=== PATIENT | female | born 1960 | race Two or more races ===

== ENCOUNTER 2016-07-23 14:51 | Emergency (ER) | payer MEDICARE ==
[~2016-07-23] VITALS: Ht 157.5 cm; Wt 104.3 kg
[~2016-07-23 14:51] MED LIST: CYCLOBENZAPRINE10 MG ORAL; IBUPROFEN600 MG ORAL; NKM; RANITIDINE HCL150 MG ORAL; TRAMADOL HCL50 MG ORAL
[2016-07-23] MEDS ORDERED: ASPIR 8181 MG ORAL (15:05)
[2016-07-23] MEDS ORDERED: DICLOFENAC SODI75 MG ORAL (15:05)
[2016-07-23] MEDS ORDERED: LOSARTAN POTASS25 MG ORAL (15:05)
[2016-07-23] MEDS ORDERED: Lidocaine 1% MPF 10mg/ml 5ml INJ ONE (15:30)
[2016-07-23] MEDS ORDERED: IBUPROFEN600 MG ORAL (15:48)
[2016-07-23] MEDS ORDERED: CEPHALEXIN500 MG ORAL ×2 (15:49→15:56)
[2016-07-23] MEDS ORDERED: Polysporin Oint 30gm TOPIC ONE (16:00)
[2016-07-23] MEDS ORDERED: Bacitracin Oint UD TOPIC ONE (16:04)
--- NOTE | 2016-07-23 16:13 | Emergency Room Report ---
History of Present Illness General Chief Complaint: General Complaint Source: Patient Present Illness HPI 55 year-old female complains of left great toe pain for the past 2-3 days. states that she has a history of ingrowing toenail in both of her great toes. states the area is getting red, swollen, and tender where the nail enters the left great. the patient states that she has take and that there are no relieving factors. States the pain is worse with walking and and with palpation of the left great toe. Denies having diabetes and states she has full ROM with sensation of her toe in addition to having no other physical complaints. Allergies: Coded Allergies: NO KNOWN ALLERGIES (Unverified Allergy, Unknown, 07/17/15) Patient History Limited by: language barrier Past Medical History: see triage record Now: No Immunizations: UTD Reviewed Nursing Documentation: PMH: Agreed, PSxH: Agreed Nursing Documentation-PMH Hx Hypertension: Yes Review of Systems All Other Systems: negative except mentioned in HPI Physical Exam Vital Signs Date Time Temp Pulse Resp B/P Pulse Ox O2 Delivery O2 Flow Rate FiO2 07/23/16 14:57 99.0 91 16 144/93 96 Room Air Sp02 EP Interpretation: reviewed, normal General Appearance: no apparent distress, alert, GCS 15, non-toxic Head: normocephalic, atraumatic Eyes: bilateral eye PERRL, bilateral eye normal inspection ENT: hearing grossly normal, normal pharynx, no angioedema, normal voice Neck: full range of motion, supple/symm/no masses Respiratory: lungs clear, normal breath sounds, speaking full sentences Cardiovascular #1: regular rate, rhythm, no edema Cardiovascular #2: 2+ dorsalis pedis (R), 2+ dorsalis pedis (L) Musculoskeletal: back normal, gait/station normal, normal range of motion, non- tender, inflammation - over lateral aspect of left great toe with swelling, heat and tenderness and nailbed entering skin., other - Bilateral great toes with onychomycosis and maseration under great toenails. Neurologic: alert, oriented x3, responsive, motor strength/tone normal, sensory intact, normal gait, speech normal Psychiatric: judgement/insight normal, memory normal, mood/affect normal, no suicidal/homicidal ideation Skin: normal color, warm/dry, well hydrated, other - local erythema,swelling and tenderness of lateral aspect of left great toe. Lymphatic: no adenopathy Procedures Additional Procedure Procedure Narrative Under sterile conditions and going over risks and benefits and informed consent attained, cleaned area with betadine and ETOH of left great toe. 6cc of lidocaine 1% without epi was injected with 27g 1.5" needle into base of left great toe. Using a needle substitute bus driver, the great toe nail was clamped down and using a rotating motion removed the toenail from lateral to medial direction. Estimated blood loss was approx 2-4 cc. Hemostasis was achieved with direct pressure and the wound was then covered in bacitracin, telfa and wrapped in coban. The patient was then instructed in post procedural care and advised to f/ u with PCP within the next 3-5 days. Medical Decision Making Diagnostic Impression: Primary Impression: Ingrowing left great toenail Additional Impression: Cellulitis of great toe of left foot ER Course Pt. presents to the ED c/o left great toe pain. Ddx considered but are not limited to gout, trauma, paronychia Vital signs: are WNL, pt. is afebrile H&PE are most consistent with ingrowing toenail with local cellulitis. ORDERS: none required at this time, the diagnosis is clinical ED INTERVENTIONS: Toenail removal DISCHARGE: At this time pt. is stable for d/c to home. Will provide printed patient care instructions, and any necessary prescriptions. Care plan and follow up instructions have been discussed with the patient prior to discharge. Last Vital Signs Date Time Temp Pulse Resp B/P Pulse Ox O2 Delivery O2 Flow Rate FiO2 07/23/16 14:57 99.0 91 16 144/93 96 Room Air Disposition: HOME, SELF-CARE Condition: Improved Scripts Cephalexin* (KEFLEX*) 500 Mg Capsule 500 MG ORAL EVERY 12 HOURS, #14 CAP 0 Refills Prov: SABRY,TAMEEM P.A. 07/23/16 Ibuprofen* (MOTRIN*) 600 Mg Tablet 600 MG ORAL Q6H Y for For Pain, #30 TAB Prov: SABRY,TAMEEM P.A. 07/23/16 Patient Instructions: Fingernail or Toenail Removal, Care After Additional Instructions: Take medication as directed. Patient instructed to take ibuprofen 600mg as needed for pain. Advised patient to keep site of infection elevated above the level of their heart 3 or 4 times a day, for 30 minutes each time to help reduce swelling. Patient is to keep the infected area clean and dry. They can take a shower or bath, but be sure to pat the area dry with a towel afterward. Patient instructed to not put any antibiotic ointments or creams on the area. Patient should come back sooner if their symptoms do not get better within 3 days of starting treatment or if the red area gets bigger, more swollen, or more painful. JUAN GUPTA Jul 23, 2016 16:13
[2016-07-23 16:20] VITALS: BP 183/88
== END 2016-07-23 16:20 | disposition home or self-care (01) ==
LOC: EMR 15:24
DX: L60.0 Ingrowing nail (principal); L03.032 Cellulitis of left toe; I10 Essential (primary) hypertension

== ENCOUNTER 2018-02-19 11:25 | Emergency (ER) | payer MEDICAID, MEDICARE ==
[~2018-02-19] VITALS: Ht 152.4 cm; Wt 108.4 kg
[~2018-02-19 11:25] MED LIST changes: +ASPIR 8181 MG ORAL; +CEPHALEXIN500 MG ORAL; +DICLOFENAC SODI75 MG ORAL; +LOSARTAN POTASS25 MG ORAL
[2018-02-19 11:35] VITALS: BP 95/66
[2018-02-19] MEDS ORDERED: ACETAMINOPHEN-1 EAC1 ORAL (12:23)
[2018-02-19] MEDS ORDERED: IBUPROFEN600 MG ORAL (12:23)
[2018-02-19] MEDS ORDERED: Tylenol #3 tab (300mg/30mg) ORAL ONE (12:30)
[2018-02-19 12:38] VITALS: BP 95/66
--- NOTE | 2018-02-19 12:39 | Diagnostic Imaging Report ---
Indication: Pain Technique: XRAY Knee 3v R Comparison: None Findings: No acute fracture. There is degenerative change of the knee with significant medial femorotibial compartment joint space narrowing with subchondral sclerosis and cystic change. There may be some chondrocalcinosis in the medial compartment as well. There small tricompartmental osteophytes. No significant suprapatellar joint effusion. No radiopaque foreign body identified. IMPRESSION: No acute fracture. Degenerative change of the knee as above, most severe in the medial femorotibial compartment.
--- NOTE | 2018-02-19 14:50 | Emergency Room Report ---
History of Present Illness General Chief Complaint: Pain Source: Patient Present Illness HPI Patient present with complaints of right knee pain patient has long-standing problems with the knee however she feels that over the past 2-3 days the pain has worsened she also felt that there was some more swelling Denies any fevers or chills denies any fall Pain is 10 out of 10 worse with ambulation Denies any back or flank pain Allergies: Coded Allergies: NO KNOWN ALLERGIES (Unverified Allergy, Unknown, 02/19/18) Patient History Past Medical History: see triage record Pertinent Family History: none Last Menstrual Period: 1982 Now: No Reviewed Nursing Documentation: PMH: Agreed; PSxH: Agreed Nursing Documentation-PMH Past Medical History: No History, Except For Hx Hypertension: Yes Review of Systems All Other Systems: negative except mentioned in HPI Physical Exam Vital Signs Date Time Temp Pulse Resp B/P (MAP) Pulse Ox O2 Delivery O2 Flow Rate FiO2 02/19/18 11:29 98.0 121 16 95/66 95 Room Air 98.1 Sp02 EP Interpretation: reviewed, normal General Appearance: well appearing, no apparent distress Head: normocephalic, atraumatic Eyes: bilateral eye PERRL, bilateral eye EOMI ENT: hearing grossly normal, normal pharynx, TMs + canals normal, uvula midline Neck: full range of motion, supple, no meningismus, no bony tend Respiratory: lungs clear, normal breath sounds, no rhonchi, no respiratory distress, no retraction, no accessory muscle use Cardiovascular #1: normal peripheral pulses, regular rate, rhythm, no edema, no gallop, no JVD, no murmur Gastrointestinal: normal bowel sounds, non tender, soft, no mass, no organomegaly, non-distended, no guarding, no hernia, no pulsatile mass, no rebound Genitourinary: no CVA tenderness Musculoskeletal: other - Significant arthritic changes to the right knee, also left knee, mild small effusion is palpable clinically, no obvious erythema Neurologic: oriented x3, responsive, therapist asst III-XII nml as tested, motor strength/ tone normal, sensory intact Psychiatric: mood/affect normal Skin: normal color, no rash, warm/dry, palpation normal Lymphatic: normal inspection, no adenopathy Medical Decision Making Diagnostic Impression: Primary Impression: arthralgia ER Course Patient has significant arthritis clinically on the right knee X-ray imaging was done to rule out any obvious occult fracture this was negative Patient is provided further pain medicine she does have an arthritis specialist that she is seeing she reports that she is only given Ultram and requesting different medicine for the pain Other X-Ray Diagnostic Results Other X-Ray Diagnostic Results : X-Ray ordered: Right knee # of Views/Limited Vs Complete: 3 View EP Interpretation: Yes Interpretation: no dislocation, no soft tissue swelling, no fractures, other - Significant degenerative disease Impression: No acute disease Electronically Signed by: Alejo Ramírez DO Last Vital Signs Date Time Temp Pulse Resp B/P (MAP) Pulse Ox O2 Delivery O2 Flow Rate FiO2 02/19/18 12:26 98.1 02/19/18 11:35 74 16 95/66 95 Room Air Status: improved Disposition: HOME, SELF-CARE Condition: Improved Scripts Acetaminophen With Codeine (T#3) (TYLENOL #3 TAB*) Y Tab 1 TAB ORAL Q8H PRN for For Pain, #10 TAB Prov: Alejo Ramírez DO 02/19/18 Ibuprofen* (MOTRIN*) 600 Mg Tablet 600 MG ORAL Q8H PRN for For Pain, #20 TAB 0 Refills Prov: Alejo Ramírez DO 02/19/18 Referrals: NON PHYSICIAN (PCP) Patient Instructions: Arthritis, [id number], Joint Pain Additional Instructions: Patient is provided with the discharge instructions notified to follow up with primary doctor in the next 2-3 days otherwise return to the er with any worsening symptoms. Please note that this report is being documented using [employer] technology. This can lead to erroneous entry secondary to incorrect interpretation by the dictating instrument. Alejo Ramírez DO Feb 19, 2018 14:50
== END 2018-02-19 12:38 | disposition home or self-care (01) ==
LOC: EMR 12:00
DX: M25.561 Pain in right knee (principal); I10 Essential (primary) hypertension
CPT/HCPCS: 99284

== ENCOUNTER 2018-07-14 11:44 | Inpatient (IN) | payer MEDICAID, MEDICARE ==
[~2018-07-14] VITALS: Ht 157.5 cm; Wt 106.6 kg
[2018-07-14] VITALS (11 sets, daily range): BP systolic 86–139; BP diastolic 54–91
[~2018-07-14 11:44] MED LIST changes: +ACETAMINOPHEN-1 EAC1 ORAL
--- NOTE | 2018-07-14 12:07 | NUR ---
ED Nurse Note: pt came into ed c/o SOB and midsternal chest pain started this morning. Pt states that she's been feeling cold and feeling weak and tired lately and went to doctors last week and was dx gastritis and started taking medication. Pt AA&ox4, gcs=15, divehi speaking, skin warm and dry, pale, resp labored, tachypnea, -n/v/d, started o2 = 4L via NC, will continue to monitor. MD notified regarding o2 and pt's condition. pt reports o2 helps her breathing.
--- NOTE | 2018-07-14 12:25 | Emergency Room Report ---
History of Present Illness General Chief Complaint: Dyspnea/Respdistress Source: Patient, Family Member Present Illness HPI Patient presents with dyspnea and chest pain this woke her up at 3 am. Substernal chest pain. Started suddenly when she was sitting watching TV. She was seen a week ago for possible gastritis. She also has arthritis in her knees that she takes diclofenac. Recently she's had more edema in her lower legs and she denies any calf pain at this time. On Sunday, she felt some shortness of breath, but did not have the chest pain or palpitations. Pain rated 8/10 chest, pressure and aching, substernal. The patient denies any fevers chills cough nausea vomiting diarrhea dysuria. She's never had this type of chest pain before. She is treated for hypertension and high cholesterol. She does not smoke and there is no family history of clots or heart attacks. Denies prior history of CHF or fluid in lungs. In the past she has not had significant edema. Denies diabetes. Osteoarthritis of knees. States edema related to this. Allergies: Coded Allergies: NO KNOWN ALLERGIES (Unverified Allergy, Unknown, 02/19/18) Patient History Past Medical History: see triage record Social History: Denies: smoking Social History Narrative with daughter Last Menstrual Period: none Now: No : 5 Para: 5 Reviewed Nursing Documentation: PMH: Agreed; PSxH: Agreed Nursing Documentation-PMH Hx Hypertension: Yes Review of Systems All Other Systems: negative except mentioned in HPI Physical Exam Vital Signs Date Time Temp Pulse Resp B/P (MAP) Pulse Ox O2 Delivery O2 Flow Rate FiO2 07/14/18 12:01 99.0 140 15 139/80 95 Room Air Sp02 EP Interpretation: reviewed, abnormal - interpreted as low by me General Appearance: GCS 15, mild distress, obese Head: normocephalic Eyes: bilateral eye normal inspection, bilateral eye PERRL ENT: moist mucus membranes Neck: supple Respiratory: decreased breath sounds Cardiovascular #1: no murmur, tachycardia, edema - 2 + pitting bilat Cardiovascular #2: 2+ radial (R) Gastrointestinal: normal inspection, normal bowel sounds, non tender, no mass, non-distended, overweight Musculoskeletal: back normal, normal range of motion, no calf tenderness, Dm 's Sign negative Neurologic: alert, oriented x3, grossly normal Psychiatric: mood/affect normal Skin: normal inspection, warm/dry Procedures Critical Care Time Critical Care Time Total Critical Care Time: 60 min bedside evaluation and treatment excludes procedures (EKG). Reason for critical care: atrial flutter, possible PE, hypoxia, CHF Possible complications: hypotension, hypertension, IA, shock, arrhythmias, metabolic acidosis, end organ damage, respiratory failure, CVA. Interventions: aspirin, amiodarone, diltiazem, CTA chest, lasix, consultation with caustic plant worker Course: Patient with chest pain and hypoxia. Immediate evaluation for AMI and PE. Aspirin given. Amiodarone boluses with reassessments. CTA neg for PE. Lasix given. Discussion with caustic plant worker with choice of diltiazem. Lovenox given Improved with treatment. Admit ICU. Consultations: nursing staff, family, admitting MD, caustic plant worker Performed by: Dr. Diaz Tolerated well condition = serious Medical Decision Making Diagnostic Impression: Primary Impression: Atrial flutter Qualified Codes: I48.92 - Unspecified atrial flutter Additional Impression: CHF (congestive heart failure) Qualified Codes: I50.9 - Heart failure, unspecified ER Course Patient presents with chest pain and hypoxia. DDX: AMI, ACS, CHF, arrhythmia amongst others. No indications of infectious etiology. Though she has had dyspnea for several days, the chest pain and palpitations began at 3 am. Evaluation with EKG, CXR, CTA and labs. She will be treated with aspirin, oxygen and placed on cardiac rehabilitation program director. Suspicion is high for pulmonary embolus. Consideration for rate and rhythm control. Beta blockers relatively contraindicated with apparent CHF. EKG with possible a flutter. CXR CHF, inc cor. No ischemia - consider cardioversion, but will attempt rate and rhythm control medically. Also concern for possible PE. As chest symptoms less than 24 hours Amiodarone given. HR better, but still tachycardic. Also improved pain. Initial troponin neg. BNP elevated. Min elevation WBC. Going to CT. Still tachy. Repeat amiodarone. EKG #2 consider A flutter still. HR 127, ST vs A flutter. Pulm disease. CT excludes PE. Focus on rate control/rhythm control. Lasix given. Echols placed. Discussed with Dr. Johnson and Dr. Gonzalez who requests diltiazem drip and admit to ICU. Starting lovenox. BP slightly low on diltiazem (98). Reduce rate of drip. HR not changed on diltiazem. Patient improved but still tachycardic. Admit ICU. Laboratory Tests Test 07/14/18 12:35 07/14/18 13:10 White Blood Count 10.9 K/UL (4.8-10.8) H Red Blood Count 4.93 M/UL (4.20-5.40) Hemoglobin 12.2 G/DL (12.0-16.0) Hematocrit 39.4 % (37.0-47.0) Mean Corpuscular Volume 80 FL (80-99) Mean Corpuscular Hemoglobin 24.7 PG (27.0-31.0) L Mean Corpuscular Hemoglobin Concent 30.9 G/DL (32.0-36.0) L Red Cell Distribution Width 15.1 % (11.6-14.8) H Platelet Count 292 K/UL (150-450) Mean Platelet Volume 8.0 FL (6.5-10.1) Neutrophils (%) (Auto) 73.3 % (45.0-75.0) Lymphocytes (%) (Auto) 10.2 % (20.0-45.0) L Monocytes (%) (Auto) 13.0 % (1.0-10.0) H Eosinophils (%) (Auto) 1.6 % (0.0-3.0) Basophils (%) (Auto) 2.0 % (0.0-2.0) Sodium Level 144 MMOL/L (136-145) Potassium Level 3.9 MMOL/L (3.5-5.1) Chloride Level 109 MMOL/L (98-107) H Carbon Dioxide Level 23 MMOL/L (21-32) Anion Gap 12 mmol/L (5-15) Blood Urea Nitrogen 14 mg/dL (7-18) Creatinine 0.7 MG/DL (0.55-1.30) Estimate Glomerular Filtration Rate > 60 mL/min (>60) Glucose Level 111 MG/DL (74-106) H Calcium Level 8.9 MG/DL (8.5-10.1) Total Bilirubin 0.5 MG/DL (0.2-1.0) Aspartate Amino Transferase (AST) 15 U/L (15-37) Alanine Aminotransferase (ALT) 26 U/L (12-78) Alkaline Phosphatase 117 U/L (46-116) H Total Creatine Kinase 52 U/L (26-308) Troponin I 0.007 ng/mL (0.000-0.056) Pro-B-Type Natriuretic Peptide 1613 pg/mL (0-125) H Total Protein 6.9 G/DL (6.4-8.2) Albumin 3.3 G/DL (3.4-5.0) L Globulin 3.6 g/dL Albumin/Globulin Ratio 0.9 (1.0-2.7) L Prothrombin Time 11.9 SEC (9.30-11.50) H Prothrombin Time INR 1.1 (0.9-1.1) PTT 31 SEC (23-33) EKG Diagnostic Results Rate: tachycardiac - 140 Rhythm: other - possible A flutter ST Segments: no acute changes Rhythm Strip Diag. Results EP Interpretation: yes Rhythm: no PVC's, no ectopy, other - ST vs A flutter Chest X-Ray Diagnostic Results Chest X-Ray Diagnostic Results : Chest X-Ray Ordered: Yes # of Views/Limited/Complete: 1 View Indication: Other EP Interpretation: Yes Interpretation: other - effusions, infiltrate, cardiomegally Impression: Other Electronically Signed by: Electronically signed by Yo Diaz MD CT/MRI/US Diagnostic Results CT/MRI/US Diagnostic Results : Imaging Test Ordered: CTA chest Impression No pulmonary embolus. Small moderate left and large right pleural effusions. Bilateral ground glass opacities that may be some edema patchy consolidation and consolidative atelectasis. Cardiomegaly Last Vital Signs Date Time Temp Pulse Resp B/P (MAP) Pulse Ox O2 Delivery O2 Flow Rate FiO2 07/14/18 16:45 97.9 131 18 108/78 98 Nasal Cannula 4.0 Status: improved Disposition: ADMITTED INPATIENT Condition: Serious Yo Diaz MD Jul 14, 2018 12:25
[2018-07-14] MEDS ORDERED: Isovue-370 150ml vial INJ PRN (12:30)
[2018-07-14] MEDS ORDERED: Morphine Sulfate 2mg/ml Inj IVP ONE (12:30)
[2018-07-14 13:13] LABS: EOSINOPHILS % (AUTO) 1.6 % (0.0-3.0); HEMATOCRIT 39.4 % (37.0-47.0); HEMOGLOBIN 12.2 G/DL (12.0-16.0); LYMPHOCYTES % (AUTO) 10.2 % (20.0-45.0); MEAN CORPUSCULAR VOLUME 80 FL (80-99); NEUTROPHILS % (AUTO) 73.3 % (45.0-75.0); PLATELET COUNT 292 K/UL (150-450); RED BLOOD COUNT 4.93 M/UL (4.20-5.40); RED CELL DISTRIBUTION WIDTH 15.1 % (11.6-14.8); WHITE BLOOD COUNT 10.9 K/UL (4.8-10.8)
[2018-07-14 13:24] LABS: ANION GAP 12 mmol/L (5-15); BLOOD UREA NITROGEN 14 mg/dL (7-18); CALCIUM 8.9 MG/DL (8.5-10.1); CARBON DIOXIDE 23 MMOL/L (21-32); CHLORIDE 109 MMOL/L (98-107); CREATININE 0.7 MG/DL (0.55-1.30); POTASSIUM 3.9 MMOL/L (3.5-5.1); SODIUM 144 MMOL/L (136-145)
[2018-07-14 13:35] LABS: ALANINE AMINOTRANSFERASE 26 U/L (12-78); ALBUMIN 3.3 G/DL (3.4-5.0); ALBUMIN/GLOBULIN RATIO 0.9 (1.0-2.7); ALKALINE PHOSPHATASE 117 U/L (46-116); ASPARTATE AMINO TRANSFERASE 15 U/L (15-37); BILIRUBIN,TOTAL 0.5 MG/DL (0.2-1.0); CREATINE KINASE 52 U/L (26-308)
--- NOTE | 2018-07-14 13:39 | NUR ---
ED Nurse Note: Pt is going down to CT.
[2018-07-14 13:46] LABS: INR 1.1 (0.9-1.1)
--- NOTE | 2018-07-14 13:58 | NUR ---
ED Nurse Note: Pt came back from CT
[2018-07-14] MEDS ORDERED: dilTIAZem HCl 25mg/5ml Inj IVP ONE (15:45)
[2018-07-14] MEDS ORDERED: Enoxaparin 100mg Inj SUBQ ONE (15:45)
--- NOTE | 2018-07-14 16:01 | NUR ---
Note woodyone in EDM - 07/14/18 at 1603 by ASUNCION ED Nurse Note: As per ERMD, start diltiazem drip dose rate at 2.5mg. Starting BP 120/84 HR 129. Will continue to monitor. Will recheck in 15mins.
--- NOTE | 2018-07-14 16:03 | NUR ---
ED Nurse Note: ED Nurse Note: As per ERMD, start diltiazem drip dose rate at 2.5ml/hr. Starting BP 120/84 HR 129. Will continue to monitor. Will recheck in 15mins.
--- NOTE | 2018-07-14 16:17 | NUR ---
ED Nurse Note: Tried to give report. RN unavailable.
--- NOTE | 2018-07-14 16:30 | NUR ---
ED Nurse Note: As per ERMD, decrease diltiazem drip dose to 2ml/hr. BP 108/78 HR 131. Will continue to monitor.
--- NOTE | 2018-07-14 16:45 | NUR ---
ED Nurse Note: BP 119/78 HR 121
--- NOTE | 2018-07-14 17:15 | NUR ---
ED Nurse Note: Tried giving report to RN. RN unavailable.
--- NOTE | 2018-07-14 17:31 | NUR ---
ED Nurse Note: Gave telephone report to SEB Mason. RN was notified to bring her up in 15mins due to bed not being ready.
--- NOTE | 2018-07-14 18:19 | NUR ---
ED Nurse Note: Transferred pt to new unit. No acute distress noted.
--- NOTE | 2018-07-14 19:30 | NUR ---
NURSE NOTES: Admitted into [facility]G this 57 yo female pt with c/o chest pain and rapid afib. AAOx4;Pt iin no acute distress, currently denies pain, denies SOB. On 2l via NC, saturating 98-99%. chest sounds clear. Afib/Aflutter on the monitor, rate 106-114. BP stable, afebrile. Pt has PIV x2 all patent; Cardizem gtt infusing at 2mg/h. FC in place, draining clear light jm urine. Son at the bedside. Plan of care explained and will continue to monitor HR/rhythm
--- NOTE | 2018-07-14 20:00 | NUR ---
NURSE NOTES: Orders obtained from PMD, Dr Gardner; Also called Dr Gonzalez for additional orders
--- NOTE | 2018-07-14 20:11 | Consultation ---
Consult Note Assessment/Plan #[id number] afib/flutter with RVR CHF HTN. HLD obesity CarolAraceli DO Jul 14, 2018 20:11
--- NOTE | 2018-07-14 22:00 | NUR ---
NURSE NOTES: Awake, watches TV; denies any chest pains; SOB. Still on Afib; Cardizem gtt at 10mg/h.
--- NOTE | 2018-07-14 22:30 | Consultation ---
DATE OF CONSULTATION: 07/14/2018 PULMONARY AND CRITICAL CARE CONSULT CONSULTING PHYSICIAN: Araceli Medina M.D. REASON FOR CONSULTATION: Shortness of breath, atrial fibrillation and atrial flutter with RVR. HISTORY OF PRESENT ILLNESS: An elderly female who woke up at 3 a.m. with substernal chest pain. Denies any nausea, vomiting, or diarrhea. Has never had any history of atrial fibrillation or atrial flutter. No history of AL. She does smoke tobacco and has had some lower extremity edema and that has been increasing. She did see her primary physician who was concerned about CHF. She was brought into the emergency room, found to be in atrial fibrillation. She has been started on diltiazem drip. She has no other symptoms or concerns. In the emergency room, the patient was started on amiodarone without improvement of her rate control and subsequently was started on diltiazem as well as Lovenox for anticoagulation. PAST MEDICAL HISTORY: Includes COPD, hypertension, hypercholesterolemia, and obesity. SOCIAL HISTORY: Positive for tobacco about a pack a day. No alcohol or drugs. FAMILY HISTORY: Noncontributory. MEDICATIONS: Pre-hospital medications are reviewed, reconciled, and documented in electronic record. PAST SURGICAL HISTORY: Otherwise negative. ALLERGIES: She has no allergies. PHYSICAL EXAMINATION: GENERAL: At the time of my exam, she is alert. She is oriented. She is in no acute respiratory distress. She is afebrile. VITAL SIGNS: Pulse of 133, respirations 24, and blood pressure 119/84. HEENT: She is normocephalic and atraumatic. Oropharynx is moist. Nasal mucosa is moist. NECK: Supple without lymphadenopathy. LUNGS: Bilateral crackles. No wheezes present. HEART: Irregularly irregular with an audible murmur. ABDOMEN: Soft, obese, and nontender. Positive bowel sounds. EXTREMITIES: Positive edema. No focal neurological deficits. LABORATORY AND IMAGING DATA: Her white count 10.9, hemoglobin 12.2, and platelets are 292,000. Her sodium is 144, potassium 3.9, chloride 109, bicarbonate is 23, BUN is 14, creatinine 0.7, and glucose is 111. Her troponin 0.007. Her NPA is 1613. Chest x-ray report is not available. Per the ER record, CT scan was performed, excluding a pulmonary embolism. ASSESSMENT: Atrial fibrillation and atrial flutter with rapid ventricular rate, hypertension, hyperlipidemia, obesity, and possible congestive heart failure. PLAN: For the patient, she is in the intensive care unit for rate control of her arrhythmia. Lovenox for anticoagulation. DVT prophylaxis. 2D echo. Trend her troponins. Aspiration precautions. Home meds. Glycemic control as needed and wound care. We will continue to follow p.r.n. blood gases and chest x-ray as needed. O2 to maintain sats greater than 90%. Greater than 35 minutes of critical care time spent with the patient discussing the case with the patient's family, plan today discussed with consultants, monitoring for bleeding and hemodynamic stability. Araceli Medina D.O. DR: FREDDIE JOB#: [id number] CC:
[2018-07-15] VITALS (37 sets, daily range): BP systolic 93–142; BP diastolic 46–100
--- NOTE | 2018-07-15 | NUR ---
NURSE NOTES: Sleeps on and off; afebrile, denies chest pains; Still on afib/flutter rate 100. BP stable.
--- NOTE | 2018-07-15 02:15 | History and Physical Report ---
DATE OF ADMISSION: 07/14/2018 HISTORY OF PRESENT ILLNESS: The patient comes in with chest pain and shortness of breath for three days and abdominal pain for one week. The patient is morbidly obese, recently went to the doctor, given diagnosis of severe gastritis. The patient is being admitted for atrial fibrillation with RVR as well as bilateral effusion, right greater than left and cardiomegaly and elevated BNP. PAST MEDICAL HISTORY: GERD and obesity. PAST SURGICAL HISTORY: Hysterectomy. MEDICATIONS: in the chart. ALLERGIES: None. SOCIAL HISTORY: Denies history of smoking. No history of alcohol or illicit drugs. REVIEW OF SYSTEMS: HEENT: Denies headaches. RESPIRATORY: Reports shortness of breath. Denies cough for three days. CARDIOVASCULAR: Denies orthopnea. Does have chest pain for three days and abdominal pain for one week. GASTROINTESTINAL: No constipation. No abdominal pain or vomiting. No diarrhea. EXTREMITIES: Denies pain in lower extremities. Also has severe gastritis and heartburn. CENTRAL NERVOUS SYSTEM: No change in vision or speech pattern. PHYSICAL EXAMINATION: VITAL SIGNS: Temperature heart rate was 150 initially, and blood pressure 130/70. HEENT: PERRLA. NECK: Supple. No lymphadenopathy. CHEST: Clear bibasilar rales. CARDIOVASCULAR: Irregularly irregular and tachycardic. GASTROINTESTINAL: Soft. Mild epigastric tenderness. The patient is obese. Abdomen is soft. EXTREMITIES: 1+ edema. Reflexes on both sides. Moves all four extremities. LABORATORY DATA: Only significant for elevated BNP. ASSESSMENT AND PLAN: Atrial fibrillation with RVR; poor effusion, right greater than left; cardiomegaly; elevated BNP; chest pain; and pleural effusion. Consult Dr. Ronquillo, Dr. Brito, Dr. Boo for the diagnosis above-mentioned issues. Alejo Johnson M.D. DR: COLEMAN JOB#: [id number] CC:
--- NOTE | 2018-07-15 03:00 | NUR ---
NURSE NOTES: Pt sleeping. Converted to NSR. BP stable. Cardizem gtt continues at 10mg/h. IV site intact
--- NOTE | 2018-07-15 04:00 | NUR ---
NURSE NOTES: Pt back to aflutter 3:1 conduction. Denies chest pains; denies SOB. AM care done. BP stable; afebrile
[2018-07-15 06:25] LABS: BASOPHILS % (AUTO) 1.5 % (0.0-2.0); EOSINOPHILS % (AUTO) 1.6 % (0.0-3.0); HEMATOCRIT 35.7 % (37.0-47.0); HEMOGLOBIN 11.1 G/DL (12.0-16.0); LYMPHOCYTES % (AUTO) 15.4 % (20.0-45.0); MEAN CORPUSCULAR VOLUME 81 FL (80-99); MONOCYTES % (AUTO) 11.6 % (1.0-10.0); NEUTROPHILS % (AUTO) 69.9 % (45.0-75.0); PLATELET COUNT 260 K/UL (150-450); RED BLOOD COUNT 4.42 M/UL (4.20-5.40); RED CELL DISTRIBUTION WIDTH 15.7 % (11.6-14.8); WHITE BLOOD COUNT 12.2 K/UL (4.8-10.8)
[2018-07-15 07:06] LABS: ANION GAP 9 mmol/L (5-15); BLOOD UREA NITROGEN 15 mg/dL (7-18); CALCIUM 8.9 MG/DL (8.5-10.1); CARBON DIOXIDE 26 MMOL/L (21-32); CHLORIDE 109 MMOL/L (98-107); CREATININE 0.9 MG/DL (0.55-1.30); POTASSIUM 3.8 MMOL/L (3.5-5.1); SODIUM 144 MMOL/L (136-145)
--- NOTE | 2018-07-15 07:24 | NUR ---
HAND-OFF: Report given to Irene Merritt RN.
--- NOTE | 2018-07-15 07:25 | NUR ---
NURSE NOTES: Received patient from [facility]. Patient denies pain or discomfort at this time. Patient resting in bed at this time. Patient blood pressure stable at this time at 136/96. Patient HR showing atrial flutter on the monitor at 88bpm. Patient saturation is 96% at this time on 2L NC at this time. Patient on cardiac diet at this time. Patient has a ackerman for urine retention that was inserted at 07/14. Ackerman draining, asymptomatic and patent at this time. Patient's urine is dark jm colored at this time. Patient has a left hand 20G PIV that is patent and running cardizem drip at 8mg/hr at this time. Drip to be titrated to keep HR below 100 at this time. Will titrate as needed. Patient has an order for SCD at this time but patient has bilateral pitting edema of the lower extremities at this time. Patient has an order for nany duplex to be completed today. Patient also has an order for 2D echo this morning. Will follow up. Patient bed in low position with bed alarm on and call light in reach at this time.
--- NOTE | 2018-07-15 07:50 | NUR ---
NURSE NOTES: Left message for Dr Johnson regarding elevated WBC count this morning of 12.2. Awaiting call back at this time.
--- NOTE | 2018-07-15 08:05 | NUR ---
NURSE NOTES: Dr Johnson called back and ordered ID consult Dr Raegan Martell. Left message for Dr Martell at this time regarding consult and WBC count. Addendum: 07/15/18 at 0814 by Irene Merritt RN Unable to leave message at this time. Lab value not critical. Will inform Dr Martell when he makes rounds this morning.
--- NOTE | 2018-07-15 08:43 | Diagnostic Imaging Report ---
Indication: Chest pain Technique: One view of the chest Comparison: none Findings: Body habitus limits evaluation. The heart is enlarged. There is mild interstitial congestion. There may be a small pleural effusion on the right Impression: Cardiomegaly with mild interstitial congestion Possible small right pleural effusion
--- NOTE | 2018-07-15 09:26 | Cardiac Electrophysiology PN ---
Subjective Subjective [id number] Objective Last 24 Hour Vital Signs Date Time Temp Pulse Resp B/P (MAP) Pulse Ox O2 Delivery O2 Flow Rate FiO2 07/15/18 08:00 Nasal Cannula 2.0 07/15/18 07:03 88 25 125/63 (83) 96 07/15/18 06:00 83 26 140/69 (92) 97 07/15/18 05:30 88 25 126/79 (95) 98 07/15/18 05:00 90 22 138/79 (98) 97 07/15/18 04:30 88 24 130/75 (93) 97 07/15/18 04:00 98.0 88 23 118/68 (85) 97 07/15/18 04:00 Nasal Cannula 2.0 07/15/18 04:00 88 07/15/18 03:30 88 25 108/73 (85) 95 07/15/18 03:00 88 25 124/68 (86) 98 07/15/18 02:30 88 25 124/68 (86) 97 07/15/18 02:00 90 25 120/71 (87) 97 07/15/18 01:30 90 25 106/83 (91) 97 07/15/18 01:00 97 23 109/70 (83) 97 07/15/18 00:30 96 26 122/71 (88) 97 07/15/18 00:00 98.7 101 24 109/66 (80) 99 07/15/18 00:00 Nasal Cannula 2.0 07/14/18 23:30 100 24 114/91 (99) 96 07/14/18 23:00 103 28 86/64 (71) 96 07/14/18 22:30 94 31 93/66 (75) 96 07/14/18 22:00 102 23 103/54 (70) 98 07/14/18 21:57 100 105/70 07/14/18 21:30 102 27 105/70 (82) 97 07/14/18 21:00 133 26 106/75 (85) 99 07/14/18 20:30 102 22 110/58 (75) 98 07/14/18 20:00 Room Air 07/14/18 20:00 106 27 113/84 (94) 99 07/14/18 20:00 106 07/14/18 19:00 97.8 109 26 112/76 (88) 98 07/14/18 18:18 98.0 133 24 119/84 98 Nasal Cannula 4.0 07/14/18 16:45 97.9 131 18 108/78 98 Nasal Cannula 4.0 07/14/18 15:55 128 121/74 07/14/18 15:52 128 121/74 07/14/18 12:05 99.0 140 28 139/80 94 Room Air 07/14/18 12:05 140 28 Room Air 07/14/18 12:01 99.0 140 15 139/80 95 Room Air Intake and Output 07/14/18 07/15/18 18:59 06:59 Intake Total 710 ml Output Total 350 ml 1580 ml Balance -350 ml -870 ml Intake Oral 600 ml IV Total 110 ml Output Urine Total 350 ml 1580 ml Laboratory Tests Test 07/14/18 12:35 07/14/18 13:10 07/15/18 05:20 White Blood Count 10.9 K/UL (4.8-10.8) H 12.2 K/UL (4.8-10.8) H Red Blood Count 4.93 M/UL (4.20-5.40) 4.42 M/UL (4.20-5.40) Hemoglobin 12.2 G/DL (12.0-16.0) 11.1 G/DL (12.0-16.0) L Hematocrit 39.4 % (37.0-47.0) 35.7 % (37.0-47.0) L Mean Corpuscular Volume 80 FL (80-99) 81 FL (80-99) Mean Corpuscular Hemoglobin 24.7 PG (27.0-31.0) L 25.0 PG (27.0-31.0) L Mean Corpuscular Hemoglobin Concent 30.9 G/DL (32.0-36.0) L 31.0 G/DL (32.0-36.0) L Red Cell Distribution Width 15.1 % (11.6-14.8) H 15.7 % (11.6-14.8) H Platelet Count 292 K/UL (150-450) 260 K/UL (150-450) Mean Platelet Volume 8.0 FL (6.5-10.1) 7.6 FL (6.5-10.1) Neutrophils (%) (Auto) 73.3 % (45.0-75.0) 69.9 % (45.0-75.0) Lymphocytes (%) (Auto) 10.2 % (20.0-45.0) L 15.4 % (20.0-45.0) L Monocytes (%) (Auto) 13.0 % (1.0-10.0) H 11.6 % (1.0-10.0) H Eosinophils (%) (Auto) 1.6 % (0.0-3.0) 1.6 % (0.0-3.0) Basophils (%) (Auto) 2.0 % (0.0-2.0) 1.5 % (0.0-2.0) Sodium Level 144 MMOL/L (136-145) 144 MMOL/L (136-145) Potassium Level 3.9 MMOL/L (3.5-5.1) 3.8 MMOL/L (3.5-5.1) Chloride Level 109 MMOL/L (98-107) H 109 MMOL/L (98-107) H Carbon Dioxide Level 23 MMOL/L (21-32) 26 MMOL/L (21-32) Anion Gap 12 mmol/L (5-15) 9 mmol/L (5-15) Blood Urea Nitrogen 14 mg/dL (7-18) 15 mg/dL (7-18) Creatinine 0.7 MG/DL (0.55-1.30) 0.9 MG/DL (0.55-1.30) Estimat Glomerular Filtration Rate > 60 mL/min (>60) > 60 mL/min (>60) Glucose Level 111 MG/DL (74-106) H 91 MG/DL (74-106) Calcium Level 8.9 MG/DL (8.5-10.1) 8.9 MG/DL (8.5-10.1) Total Bilirubin 0.5 MG/DL (0.2-1.0) Aspartate Amino Transf (AST/SGOT) 15 U/L (15-37) Alanine Aminotransferase (ALT/SGPT) 26 U/L (12-78) Alkaline Phosphatase 117 U/L (46-116) H Total Creatine Kinase 52 U/L (26-308) Troponin I 0.007 ng/mL (0.000-0.056) 0.000 ng/mL (0.000-0.056) Pro-B-Type Natriuretic Peptide 1613 pg/mL (0-125) H Total Protein 6.9 G/DL (6.4-8.2) Albumin 3.3 G/DL (3.4-5.0) L Globulin 3.6 g/dL Albumin/Globulin Ratio 0.9 (1.0-2.7) L Prothrombin Time 11.9 SEC (9.30-11.50) H Prothromb Time International Ratio 1.1 (0.9-1.1) Activated Partial Thromboplast Time 31 SEC (23-33) Shawn Gonzalez MD Jul 15, 2018 09:26
[2018-07-15] MEDS ORDERED: Digoxin 0.5mg/2ml Inj IVP SCH (09:30)
--- NOTE | 2018-07-15 09:32 | Diagnostic Imaging Report ---
ndication: Dyspnea and chest pain, substernal chest pain Technique: IV administration nonionic contrast. Spiral acquisitions obtained from the lung bases to the lung apices. Multiplanar and 3-D reconstructions were generated. Total dose length product 1031.13 mGycm. CTDIvol(s) 28.88 mGy. Dose reduction achieved using automated exposure control Comparison: none Findings: No intraluminal filling defects or other findings to suggest acute pulmonary embolus are demonstrated. The heart is enlarged. No evidence of isolated right ventricular dilatation, however. Normal caliber pulmonary arteries. No evidence of thoracic aortic aneurysm or dissection. Normal classic branching anatomy of the great neck vessels is noted. There bilateral pleural effusions, moderate to large on the right, moderate on the left. There is bilateral diffuse pulmonary parenchymal groundglass opacities, as well as areas of atelectasis at both lung bases. The heart is enlarged, as mentioned previously. No pericardial effusion. There is some edema of the mediastinal fat. No mediastinal or hilar mass or adenopathy. Included portion of the thyroid is unremarkable. No axillary or chest wall mass or adenopathy. The included upper abdominal anatomy demonstrates colonic diverticulosis. Impression: Negative for evidence of pulmonary embolus or other acute thoracic vascular pathology Cardiomegaly Bilateral pulmonary parenchymal groundglass opacities, likely from pulmonary edema. Bilateral basilar atelectatic changes Bilateral pleural effusions Incidental finding of colonic diverticulosis The CT scanner at [facility] is accredited by the [employer] and the scans are performed using protocols designed to limit radiation exposure to as low as reasonably achievable to attain images of sufficient resolution adequate for diagnostic evaluation.
--- NOTE | 2018-07-15 09:35 | NUR ---
CASE MANAGEMENT: REVIEW 57/F PRESENTED TO FROM HOME CC: SOB X3 DAYS SI: HYPOXIA . ATRIAL FIBRILLATION WITH RVR T 99.0 HR 140 RR 28 BP 139/80 SAT 94% NC/4L PT 11.9 INR 1.1 IS: ZOFRAN IV X1 MORPHINE IV X1 ASA PO X1 AMIODARONE IV X1 LASIX IV X1 CARDIZEM IV X1 INTERQUAL CRITERIA MET: PATIENT ADMITTED TO ICU 07/14/2018 DCP: PATIENT IS FROM HOME CASE MANAGEMENT: REVIEW SI: HYPOXIA . ATRIAL FIBRILLATION WITH RVR T 98.0 HR 88 RR 25 BP 130/75 SAT 96% NC/2L NA 12.2 CHLOR 109 IS: DIGOXIN PO QD LASIX PO QD CARDIZEM IV Q24HR CARDIZEM PO Q6HR PROTONIX PO QD ICU STATUS DCP: PATIENT IS FROM HOME PLAN: VENOUS DUPLEX
--- NOTE | 2018-07-15 10:30 | NUR ---
NURSE NOTES: Patient VS stable at this time with no sign of acute distress. Patient complaining of pain in the left forearm/upper arm at this time. Patient had an infiltrated IV that was removed this morning. Patient had a dose of Digoxin this morning and the pharmacy coordinator ordered cardizem PO to be started this afternoon. Patient's HR is stable in the 70's to 80's at this time. Cardizem drip titrated to 6mg/hr at this time. Will continue to monitor. Patient urine output has slowed this morning. Patient putting out about 50mL or less per hour at this time. Dr Gonzalez ordered Lasix to be given later. Will continue to monitor.
--- NOTE | 2018-07-15 11:06 | Consultation ---
Consult Note Consult Note Chief Complaint: Dyspnea/Respdistress HPI Patient presents with dyspnea and chest pain this woke her up at 3 am. Substernal chest pain. Started suddenly when she was sitting watching TV. She was seen a week ago for possible gastritis. She also has arthritis in her knees that she takes diclofenac. Recently she's had more edema in her lower legs and she denies any calf pain at this time. On Sunday, she felt some shortness of breath, but did not have the chest pain or palpitations. Pain rated 8/10 chest, pressure and aching, substernal. The patient denies any fevers chills cough nausea vomiting diarrhea dysuria. She's never had this type of chest pain before. She is treated for hypertension and high cholesterol. She does not smoke and there is no family history of clots or heart attacks. Denies prior history of CHF or fluid in lungs. In the past she has not had significant edema. Denies diabetes. Osteoarthritis of knees. States edema related to this. Allergies: Coded Allergies: NO KNOWN ALLERGIES (Unverified Allergy, Unknown, 02/19/18) Patient History Past Medical History: see triage record Social History: Denies: smoking Social History Narrative with daughter Last Menstrual Period: none Now: No : 5 Para: 5 Reviewed Nursing Documentation: PMH: Agreed; PSxH: Agreed Nursing Documentation-PMH Hx Hypertension: Yes Assessment/Plan Atrial flutter CHF (congestive heart failure) Obesity morbid HTN Mild Anemia HgbA1c Anemia gamez keep BP in check discussed with Jann Ellis MD Jul 15, 2018 11:06
[2018-07-15 11:23] LABS: CHOLESTEROL 130 MG/DL (< 200); HDL CHOLESTEROL 27 MG/DL (40-60); TRIGLYCERIDES 91 MG/DL (30-150)
--- NOTE | 2018-07-15 11:32 | Pulmonology Progress Note ---
Assessment/Plan Assessment/Plan PULMONARY PROGRESS NOTE REASON FOR CONSULTATION: Shortness of breath, atrial fibrillation and atrial flutter with RVR. HISTORY OF PRESENT ILLNESS: An elderly female who woke up at 3 a.m. with substernal chest pain. Denies any nausea, vomiting, or diarrhea. Has never had any history of atrial fibrillation or atrial flutter. No history of RI. She does smoke tobacco and has had some lower extremity edema and that has been increasing. She did see her primary physician who was concerned about CHF. She was brought into the emergency room, found to be in atrial fibrillation. She has been started on diltiazem drip. She has no other symptoms or concerns. In the emergency room, the patient was started on amiodarone without improvement of her rate control and subsequently was started on diltiazem as well as Lovenox for anticoagulation. PAST MEDICAL HISTORY: Includes COPD, hypertension, hypercholesterolemia, and obesity. SOCIAL HISTORY: Positive for tobacco about a pack a day. No alcohol or drugs. FAMILY HISTORY: Noncontributory. MEDICATIONS: Pre-hospital medications are reviewed, reconciled, and documented in electronic record. PAST SURGICAL HISTORY: Otherwise negative. ALLERGIES: She has no allergies. PHYSICAL EXAMINATION: VSS noted GENERAL: At the time of my exam, she is alert. She is oriented. She is in no acute respiratory distress. She is afebrile. HEENT: She is normocephalic and atraumatic. Oropharynx is moist. Nasal mucosa is moist. NECK: Supple without lymphadenopathy. LUNGS: Bilateral crackles. No wheezes present. HEART: Irregularly irregular with an audible murmur. ABDOMEN: Soft, obese, and nontender. Positive bowel sounds. EXTREMITIES: Positive edema. No focal neurological deficits. LABORATORY AND IMAGING DATA: Her white count 10.9, hemoglobin 12.2, and platelets are 292,000. Her sodium is 144, potassium 3.9, chloride 109, bicarbonate is 23, BUN is 14, creatinine 0.7, and glucose is 111. Her troponin 0.007. Her NPA is 1613. Chest x-ray report is not available. Per the ER record, CT scan was performed, excluding a pulmonary embolism. ASSESSMENT: Atrial fibrillation and atrial flutter with rapid ventricular rate, hypertension, hyperlipidemia, obesity, and possible congestive heart failure. PLAN: For the patient, she is in the intensive care unit for rate control of her arrhythmia. Lovenox for anticoagulation. DVT prophylaxis. 2D echo. Trend her troponins. Aspiration precautions. Home meds. Glycemic control as needed and wound care. We will continue to follow p.r.n. blood gases and chest x-ray as needed. O2 to maintain sats greater than 90%. Greater than 35 minutes of critical care time spent with the patient discussing the case with the patient's family, plan today discussed with consultants, monitoring for bleeding and hemodynamic stability. Subjective ROS Limited/Unobtainable: No Allergies: Coded Allergies: NO KNOWN ALLERGIES (Unverified Allergy, Unknown, 02/19/18) Objective Last 24 Hour Vital Signs Date Time Temp Pulse Resp B/P (MAP) Pulse Ox O2 Delivery O2 Flow Rate FiO2 07/15/18 11:00 85 19 106/65 (79) 98 07/15/18 10:30 85 27 142/100 (114) 96 07/15/18 10:06 89 07/15/18 10:00 89 23 124/73 (90) 97 07/15/18 09:30 89 23 124/73 (90) 97 07/15/18 09:00 88 24 115/74 (88) 96 07/15/18 08:30 92 23 112/68 (83) 97 07/15/18 08:00 98.0 88 22 125/60 (81) 97 07/15/18 08:00 Nasal Cannula 2.0 07/15/18 07:03 88 25 125/63 (83) 96 07/15/18 06:00 83 26 140/69 (92) 97 07/15/18 05:30 88 25 126/79 (95) 98 07/15/18 05:00 90 22 138/79 (98) 97 07/15/18 04:30 88 24 130/75 (93) 97 07/15/18 04:00 98.0 88 23 118/68 (85) 97 07/15/18 04:00 Nasal Cannula 2.0 07/15/18 04:00 88 07/15/18 03:30 88 25 108/73 (85) 95 07/15/18 03:00 88 25 124/68 (86) 98 07/15/18 02:30 88 25 124/68 (86) 97 07/15/18 02:00 90 25 120/71 (87) 97 07/15/18 01:30 90 25 106/83 (91) 97 07/15/18 01:00 97 23 109/70 (83) 97 07/15/18 00:30 96 26 122/71 (88) 97 07/15/18 00:00 98.7 101 24 109/66 (80) 99 07/15/18 00:00 Nasal Cannula 2.0 07/14/18 23:30 100 24 114/91 (99) 96 07/14/18 23:00 103 28 86/64 (71) 96 07/14/18 22:30 94 31 93/66 (75) 96 07/14/18 22:00 102 23 103/54 (70) 98 07/14/18 21:57 100 105/70 07/14/18 21:30 102 27 105/70 (82) 97 07/14/18 21:00 133 26 106/75 (85) 99 07/14/18 20:30 102 22 110/58 (75) 98 07/14/18 20:00 Room Air 07/14/18 20:00 106 27 113/84 (94) 99 07/14/18 20:00 106 07/14/18 19:00 97.8 109 26 112/76 (88) 98 07/14/18 18:18 98.0 133 24 119/84 98 Nasal Cannula 4.0 07/14/18 16:45 97.9 131 18 108/78 98 Nasal Cannula 4.0 07/14/18 15:55 128 121/74 07/14/18 15:52 128 121/74 07/14/18 12:05 99.0 140 28 139/80 94 Room Air 07/14/18 12:05 140 28 Room Air 07/14/18 12:01 99.0 140 15 139/80 95 Room Air Intake and Output 07/14/18 07/15/18 18:59 06:59 Intake Total 710 ml Output Total 350 ml 1580 ml Balance -350 ml -870 ml Intake Oral 600 ml IV Total 110 ml Output Urine Total 350 ml 1580 ml Laboratory Tests 07/14/18 12:35: White Blood Count 10.9H, Red Blood Count 4.93, Hemoglobin 12.2, Hematocrit 39.4 , Mean Corpuscular Volume 80, Mean Corpuscular Hemoglobin 24.7L, Mean Corpuscular Hemoglobin Concent 30.9L, Red Cell Distribution Width 15.1H, Platelet Count 292, Mean Platelet Volume 8.0, Neutrophils (%) (Auto) 73.3, Lymphocytes (%) (Auto) 10.2L, Monocytes (%) (Auto) 13.0H, Eosinophils (%) (Auto ) 1.6, Basophils (%) (Auto) 2.0, Sodium Level 144, Potassium Level 3.9, Chloride Level 109H, Carbon Dioxide Level 23, Anion Gap 12, Blood Urea Nitrogen 14, Creatinine 0.7, Estimat Glomerular Filtration Rate > 60, Glucose Level 111H , Calcium Level 8.9, Total Bilirubin 0.5, Aspartate Amino Transf (AST/SGOT) 15, Alanine Aminotransferase (ALT/SGPT) 26, Alkaline Phosphatase 117H, Total Creatine Kinase 52, Troponin I 0.007, Pro-B-Type Natriuretic Peptide 1613H, Total Protein 6.9, Albumin 3.3L, Globulin 3.6, Albumin/Globulin Ratio 0.9L 07/14/18 13:10: Prothrombin Time 11.9H, Prothromb Time International Ratio 1.1, Activated Partial Thromboplast Time 31 07/15/18 05:20: White Blood Count 12.2H, Red Blood Count 4.42, Hemoglobin 11.1L, Hematocrit 35.7L, Mean Corpuscular Volume 81, Mean Corpuscular Hemoglobin 25.0L, Mean Corpuscular Hemoglobin Concent 31.0L, Red Cell Distribution Width 15.7H, Platelet Count 260, Mean Platelet Volume 7.6, Neutrophils (%) (Auto) 69.9, Lymphocytes (%) (Auto) 15.4L, Monocytes (%) (Auto) 11.6H, Eosinophils (%) (Auto ) 1.6, Basophils (%) (Auto) 1.5, Sodium Level 144, Potassium Level 3.8, Chloride Level 109H, Carbon Dioxide Level 26, Anion Gap 9, Blood Urea Nitrogen 15, Creatinine 0.9, Estimat Glomerular Filtration Rate > 60, Glucose Level 91, Calcium Level 8.9, Troponin I 0.000, Hemoglobin A1c 5.9, C-Reactive Protein, Quantitative [Pending], Triglycerides Level 91, Cholesterol Level 130, LDL Cholesterol 108H, HDL Cholesterol 27L, Cholesterol/HDL Ratio 4.8H Current Medications Medications (Trade) Dose Ordered Sig/Kaleb Route PRN Reason Start Time Stop Time Status Last Admin Dose Admin Acetaminophen (Tylenol) 650 mg Q4H PRN ORAL Mild Pain/Temp > 100.5 07/14/18 20:15 08/13/18 20:14 Apixaban (Eliquis) 5 mg BID ORAL 07/15/18 18:00 08/14/18 17:59 Digoxin (Lanoxin) 0.25 mg DAILY ORAL 07/16/18 09:00 08/15/18 08:59 Diltiazem HCl (Cardizem) 90 mg EVERY 6 HOURS ORAL 07/15/18 12:00 08/14/18 11:59 Diltiazem HCl 125 mg/Dextrose 125 ml @ 0 mls/hr Q24H IV 07/14/18 22:00 07/15/18 21:59 07/14/18 21:57 Furosemide (Lasix) 40 mg DAILY ORAL 07/16/18 09:00 08/15/18 08:59 Iopamidol (Isovue-370 150ml) 150 ml NOW PRN INJ Radiology Procedure 07/14/18 12:30 07/16/18 12:23 Pantoprazole (Protonix) 40 mg DAILY ORAL 07/15/18 09:00 08/14/18 08:59 07/15/18 08:39 Yo Valenzuela MD Jul 15, 2018 11:32
--- NOTE | 2018-07-15 11:45 | General Progress Note ---
Assessment/Plan Problem List: (1) Hypoxia ICD Codes: R09.02 - Hypoxemia SNOMED: 552883746 (2) Atrial flutter ICD Codes: I48.92 - Unspecified atrial flutter SNOMED: 5133751 Qualifiers: Qualified Codes: I48.92 - Unspecified atrial flutter (3) CHF (congestive heart failure) ICD Codes: I50.9 - Heart failure, unspecified SNOMED: 54307980 Qualifiers: Qualified Codes: I50.9 - Heart failure, unspecified (4) Elevated WBC count ICD Codes: D72.829 - Elevated white blood cell count, unspecified SNOMED: 869080356, 906677198 Status: progressing Assessment/Plan r/o PE a fib w rvr on drip clinically doing better no sob no cp Subjective ROS Limited/Unobtainable: Yes Allergies: Coded Allergies: NO KNOWN ALLERGIES (Unverified Allergy, Unknown, 02/19/18) Objective Last 24 Hour Vital Signs Date Time Temp Pulse Resp B/P (MAP) Pulse Ox O2 Delivery O2 Flow Rate FiO2 07/15/18 11:00 85 19 106/65 (79) 98 07/15/18 10:30 85 27 142/100 (114) 96 07/15/18 10:06 89 07/15/18 10:00 89 23 124/73 (90) 97 07/15/18 09:30 89 23 124/73 (90) 97 07/15/18 09:00 88 24 115/74 (88) 96 07/15/18 08:30 92 23 112/68 (83) 97 07/15/18 08:00 98.0 88 22 125/60 (81) 97 07/15/18 08:00 Nasal Cannula 2.0 07/15/18 07:03 88 25 125/63 (83) 96 07/15/18 06:00 83 26 140/69 (92) 97 07/15/18 05:30 88 25 126/79 (95) 98 07/15/18 05:00 90 22 138/79 (98) 97 07/15/18 04:30 88 24 130/75 (93) 97 07/15/18 04:00 98.0 88 23 118/68 (85) 97 07/15/18 04:00 Nasal Cannula 2.0 07/15/18 04:00 88 07/15/18 03:30 88 25 108/73 (85) 95 07/15/18 03:00 88 25 124/68 (86) 98 07/15/18 02:30 88 25 124/68 (86) 97 07/15/18 02:00 90 25 120/71 (87) 97 07/15/18 01:30 90 25 106/83 (91) 97 07/15/18 01:00 97 23 109/70 (83) 97 07/15/18 00:30 96 26 122/71 (88) 97 07/15/18 00:00 98.7 101 24 109/66 (80) 99 07/15/18 00:00 Nasal Cannula 2.0 07/14/18 23:30 100 24 114/91 (99) 96 07/14/18 23:00 103 28 86/64 (71) 96 07/14/18 22:30 94 31 93/66 (75) 96 07/14/18 22:00 102 23 103/54 (70) 98 07/14/18 21:57 100 105/70 07/14/18 21:30 102 27 105/70 (82) 97 07/14/18 21:00 133 26 106/75 (85) 99 07/14/18 20:30 102 22 110/58 (75) 98 07/14/18 20:00 Room Air 07/14/18 20:00 106 27 113/84 (94) 99 07/14/18 20:00 106 07/14/18 19:00 97.8 109 26 112/76 (88) 98 07/14/18 18:18 98.0 133 24 119/84 98 Nasal Cannula 4.0 07/14/18 16:45 97.9 131 18 108/78 98 Nasal Cannula 4.0 07/14/18 15:55 128 121/74 07/14/18 15:52 128 121/74 07/14/18 12:05 99.0 140 28 139/80 94 Room Air 07/14/18 12:05 140 28 Room Air 07/14/18 12:01 99.0 140 15 139/80 95 Room Air Intake and Output 07/14/18 07/15/18 18:59 06:59 Intake Total 710 ml Output Total 350 ml 1580 ml Balance -350 ml -870 ml Intake Oral 600 ml IV Total 110 ml Output Urine Total 350 ml 1580 ml Laboratory Tests 07/14/18 12:35: White Blood Count 10.9H, Red Blood Count 4.93, Hemoglobin 12.2, Hematocrit 39.4 , Mean Corpuscular Volume 80, Mean Corpuscular Hemoglobin 24.7L, Mean Corpuscular Hemoglobin Concent 30.9L, Red Cell Distribution Width 15.1H, Platelet Count 292, Mean Platelet Volume 8.0, Neutrophils (%) (Auto) 73.3, Lymphocytes (%) (Auto) 10.2L, Monocytes (%) (Auto) 13.0H, Eosinophils (%) (Auto ) 1.6, Basophils (%) (Auto) 2.0, Sodium Level 144, Potassium Level 3.9, Chloride Level 109H, Carbon Dioxide Level 23, Anion Gap 12, Blood Urea Nitrogen 14, Creatinine 0.7, Estimat Glomerular Filtration Rate > 60, Glucose Level 111H , Calcium Level 8.9, Total Bilirubin 0.5, Aspartate Amino Transf (AST/SGOT) 15, Alanine Aminotransferase (ALT/SGPT) 26, Alkaline Phosphatase 117H, Total Creatine Kinase 52, Troponin I 0.007, Pro-B-Type Natriuretic Peptide 1613H, Total Protein 6.9, Albumin 3.3L, Globulin 3.6, Albumin/Globulin Ratio 0.9L 07/14/18 13:10: Prothrombin Time 11.9H, Prothromb Time International Ratio 1.1, Activated Partial Thromboplast Time 31 07/15/18 05:20: White Blood Count 12.2H, Red Blood Count 4.42, Hemoglobin 11.1L, Hematocrit 35.7L, Mean Corpuscular Volume 81, Mean Corpuscular Hemoglobin 25.0L, Mean Corpuscular Hemoglobin Concent 31.0L, Red Cell Distribution Width 15.7H, Platelet Count 260, Mean Platelet Volume 7.6, Neutrophils (%) (Auto) 69.9, Lymphocytes (%) (Auto) 15.4L, Monocytes (%) (Auto) 11.6H, Eosinophils (%) (Auto ) 1.6, Basophils (%) (Auto) 1.5, Sodium Level 144, Potassium Level 3.8, Chloride Level 109H, Carbon Dioxide Level 26, Anion Gap 9, Blood Urea Nitrogen 15, Creatinine 0.9, Estimat Glomerular Filtration Rate > 60, Glucose Level 91, Calcium Level 8.9, Troponin I 0.000, Hemoglobin A1c 5.9, C-Reactive Protein, Quantitative 1.5H, Triglycerides Level 91, Cholesterol Level 130, LDL Cholesterol 108H, HDL Cholesterol 27L, Cholesterol/HDL Ratio 4.8H Height (Feet): 5 Height (Inches): 2.00 Weight (Pounds): 237 EENT: PERRL/EOMI Cardiovascular: normal rate Respiratory/Chest: lungs clear Alejo Johnson MD Jul 15, 2018 11:45
[2018-07-15] MEDS: dilTIAZem HCl 90mg tab ORAL SCH ×3 (11:59→23:36)
--- NOTE | 2018-07-15 12:00 | NUR ---
NURSE NOTES: Patient HR continues to be stable at this time. Patient given PO cardizem at this time. Patient complaining of pain in her left arm and lower back at this time. Patient given lunch tray at this time. Will continue to monitor HR and titrate cardizem when possible. Patient bed in low position with bed alarm on and call light in reach at this time.
--- NOTE | 2018-07-15 12:37 | NUR ---
NURSE NOTES: Patient has been complaining of pain in her left arm since this AM. Patient had a PIV in her left forearm that became infiltrated last night. This morning the IV was removed. Patient still complaining of pain in the left arm radiating up to the left upper arm and shoulder. Notified Dr Gonzalez and placed an order for nany and arterial duplex at this time.
--- NOTE | 2018-07-15 14:00 | NUR ---
NURSE NOTES: Patient cardizem drip stopped at this time. Patient's HR is 67 at this time in atrial flutter. Patient states that her left arm feels better. Awaiting result of nany duplex at this time. VS stable at this time. Will continue to monitor. Bed in low position with bed alarm on at this time.
--- NOTE | 2018-07-15 14:11 | NUR ---
INSURANCE ALL CLINICALS AND REVIEW FAXED TO: [facility] PLEASE FAX THE REVIEW FX: [phone].. & [facility] WILL TR[facility] THIS ADMISSION [facility]: GARRETT MURRELL P- [phone] F- [phone]
--- NOTE | 2018-07-15 16:00 | NUR ---
NURSE NOTES: Patient nany duplex and arterial duplex of left arm negative for acute DVT at this time. Patient states that pain has improved. Patient's HR is stable at this time. Will continue to monitor. Patient is in atrial flutter with HR ranging from 85-100 at this time. Patient denies any pain or discomfort at this time. Patient sitting up in chair at this time with family at the bedside. Patient was steady and denied feeling of dizziness when she stood next to the bed. Patient assisted to the chair and allowed to sit for a while with family at the bedside to ensure she did not try to get up on her own. Patient expresses understanding that she should not attempt to stand up if not assisted by staff member. Will continue to monitor.
--- NOTE | 2018-07-15 16:29 | NUR ---
Social Service Note RYAN met with patient and dgt Alfredo who was at bedside. Patient is alert,oriented and verbally responsive. Patient is Urdu speaking. Dgt provided translation. Patient was independent prior to admission and used a cane. Patient's PMD is Dr. Rick Hernandez. Patient obtains services through [facility] [phone]. Patient lives at home with her dgt. Patient would like to return home when medically appropriate. Charge nurse indicates patient may possibly require transfer to contacted facility. RYAN informed CM. Patient is a full code and doesn't have an advance directive. Will continue to monitor and be available as needed.
--- NOTE | 2018-07-15 16:45 | Consultation ---
DATE OF CONSULTATION: 07/15/2018 INFECTIOUS DISEASES CONSULTATION CONSULTING PHYSICIAN: Lv Martell M.D. PRIMARY ATTENDING PHYSICIAN: Alejo Johnson M.D. REASON FOR CONSULTATION: Leukocytosis. HISTORY OF PRESENT ILLNESS: The patient is a 57-year-old female admitted yesterday from home because of shortness of breath, chest pain that started suddenly when the patient watching TV in a.m. She had edema of legs for a while. She was found to have atrial flutter/fibrillation and transferred to ICU, took medication and heart rate is controlled. Today WBC jump up to 12.2. PAST MEDICAL HISTORY: Significant for hypertension, dyslipidemia, obesity, has history of a uterine cancer status post hysterectomy. The patient may need additional chemotherapy for that cancer, likely has COPD. ALLERGIES: No known drug allergies. MEDICATIONS: Digoxin, Lasix, Eliquis, Cardizem, Protonix, Tylenol. SOCIAL HISTORY: Originally from [place], single, has five children. Smoke occasionally one cigarette. No drug or alcohol abuse. REVIEW OF SYSTEMS: No fever, but feel hot yesterday. Chest pain decreased and shortness of breath decreased also. No nausea. No vomiting. No abdominal pain. Has good appetite. No problem passing urine. PHYSICAL EXAMINATION: VITAL SIGNS: Temperature today 98. No fever since admission, pulse 85, blood pressure 106/65. GENERAL APPEARANCE: Seems to be vomiting. She is in no acute distress. HEAD AND NECK: [place] conjunctiva. No oral lesion. HEART: Normal rate. Regular. LUNGS: Clear. ABDOMEN: Soft and obese. EXTREMITIES: Edema of legs. NEUROLOGIC: Awake, alert, and oriented x3. LABORATORY AND DIAGNOSTIC DATA: WBC 12.2, hemoglobin 11.1, hematocrit 35.7, and platelet is 260. Sodium 144, potassium 3.9, chloride 109, bicarbonate 23, BUN 14, creatinine 0.7, glucose is 111, albumin is 3.3. The patient has CT angiogram of chest that ruled out pulmonary emboli, but showed cardiomegaly, bilateral pleural effusion that is more in the right than left, pulmonary edema. IMPRESSION: Leukocytosis likely secondary to distress. The patient have atrial fibrillation, flutter, now is rate control, morbid obesity, hypertension, and dyslipidemia. RECOMMENDATION: We will follow up CBC. We will follow up clinically. We will observe off antibiotic. At the end of my exam, I thank Dr. Johnson, for involving me in the care of this patient. Lv Martell M.D. DR: Pamela JOB#: [id number] CC:
[2018-07-15] MEDS ORDERED: Eliquis 2.5mg tablet ORAL SCH (18:00)
--- NOTE | 2018-07-15 18:00 | NUR ---
NURSE NOTES: Patient back in bed at this time. Family at the bedside. Patient denies pain or discomfort at this time. Patient VS stable. Patient HR is stable and in atrial flutter at this time. Patient sitting up and eating dinner at this time. Patient complaining that the ackerman anchor is bothering her. Will replace at this time. Bed in low position with bed alarm on and call light in reach. Patient has an order to transfer to [facility] at this time and the cardizem drip has been discontinue by Dr Gonzalez.
--- NOTE | 2018-07-15 19:10 | NUR ---
HAND-OFF: Report given to SEB Llamas. Patient sleeping at this time with no sign of acute distress. Patient to be transfered to tele when bed is available. Endorsed to follow up.
--- NOTE | 2018-07-15 19:30 | NUR ---
NURSE NOTES: Received pt in no acute distress; awake, alert, orientedx4 denies pain, denies SOB; watching TV at this time. In and out of Atrial flutter, rate in the 80's; BP stable. Afebrile. Lhand saline lock intact. FC still in, draining clear yellow urine. Pt has orders to transfer to telemetry floor; still waiting for room availability. Will continue to monitor in the ICU tonight; plan of care explained to pt.
--- NOTE | 2018-07-15 20:30 | Consultation ---
DATE OF CONSULTATION: 07/15/2018 CARDIOLOGY CONSULTATION CONSULTING PHYSICIAN: Shawn Gonzalez M.D. REFERRING PHYSICIAN: Alejo Johnson M.D. REASON FOR CONSULTATION: Atrial flutter with rapid ventricular response. HISTORY OF PRESENT ILLNESS: The patient is a 57-year-old lady with history of hypertension, hyperlipidemia, obesity, and COPD. Woke up at 3 o'clock in the morning with substernal chest pain. The patient denies any prior history of irregular heartbeat or atrial fibrillation or atrial flutter and no prior myocardial infarction. She saw her primary care doctor, was concerned for congestive heart failure. The patient was sent to the emergency room, was found to be in atrial flutter with rapid ventricular response. Per my order, the patient was then transferred to intensive care unit, started on Cardizem drip. The patient was also started on amiodarone drip in the emergency room. REVIEW OF SYSTEMS: Review of systems was negative other than what is mentioned in the history of present illness. PAST MEDICAL HISTORY: Hypertension, hyperlipidemia, COPD, and obesity. SOCIAL HISTORY: She smokes a pack a day. Does not drink alcohol or use any drugs. FAMILY HISTORY: Noncontributory. MEDICATIONS: Per reconciliation. PHYSICAL EXAMINATION: VITAL SIGNS: Blood pressure is 124/63, pulse is 88, respirations 18, and she is afebrile. HEAD AND NECK: Shows no JVD. LUNGS: Decreased breath sounds. CARDIOVASCULAR: Shows irregularly irregular S1 and S2 with no gallop or murmur. ABDOMEN: Soft. EXTREMITIES: No pitting edema. LABORATORY AND DIAGNOSTIC DATA: Her EKG showed atrial flutter with rapid ventricular response of 130 beats per minute. Her labs showed white count of 12.2, hemoglobin of 11.9, hematocrit 35.7, and platelet count of 260,000. Sodium 144, potassium 3.8, BUN of 15, creatinine 0.9, and glucose of 91. Troponin negative x2. BNP 1613. ASSESSMENT AND PLAN: 1. Atrial flutter with rapid ventricular response. This was newly diagnosed. The patient is currently on Cardizem drip. I will start the patient on p.o. Cardizem and then give the patient IV digoxin and start the patient on anticoagulation. The patient will be ruled out for myocardial infarction. In view of her typical atrial flutter, she most likely will benefit from atrial flutter ablation. For this, she needs to be transferred to [facility] in view of the patient's insurance reason. 2. Congestive heart failure. The preliminary echocardiogram showed ejection fraction of 35%. After heart rate stabilization, we can switch the patient on digoxin and beta-nati and add CANDY inhibitors. 3. COPD and smoking. Thank you very much, Dr. Johnson, for allowing me to participate in the care of this patient. Please do not hesitate to contact me if you have any questions regarding my evaluation. Shawn Gonzalez M.D. DR: NACHO JOB#: [id number] CC:
--- NOTE | 2018-07-15 22:00 | NUR ---
NURSE NOTES: Still wake and watches TV. Pt independently changes position on bed. Denies pain currently. Still in and out of Atrial flutter. BP stable.
[2018-07-16] VITALS (12 sets, daily range): BP systolic 117–151; BP diastolic 59–83
--- NOTE | 2018-07-16 | NUR ---
NURSE NOTES: Awake and on the phone with family. Denies pain, denies SOB. VSS, afebrile, still in an iut of Aflutter
--- NOTE | 2018-07-16 02:00 | NUR ---
NURSE NOTES: Sleeping, no distress. VSS
--- NOTE | 2018-07-16 05:00 | NUR ---
NURSE NOTES: Assisted with AM care. HL on left hand sl reddish and tender but with good backflow. Applied warm compress. Satrted a new HL on right hand using g22 angio.
[2018-07-16 05:22] LABS: BASOPHILS % (AUTO) 1.4 % (0.0-2.0); EOSINOPHILS % (AUTO) 3.1 % (0.0-3.0); HEMATOCRIT 35.7 % (37.0-47.0); HEMOGLOBIN 11.1 G/DL (12.0-16.0); LYMPHOCYTES % (AUTO) 14.4 % (20.0-45.0); MEAN CORPUSCULAR VOLUME 79 FL (80-99); MONOCYTES % (AUTO) 10.5 % (1.0-10.0); NEUTROPHILS % (AUTO) 70.6 % (45.0-75.0); PLATELET COUNT 253 K/UL (150-450); RED CELL DISTRIBUTION WIDTH 15.4 % (11.6-14.8); WHITE BLOOD COUNT 12.4 K/UL (4.8-10.8)
--- NOTE | 2018-07-16 05:30 | NUR ---
NURSE NOTES: Echols cath d/c'd. Instructed to call if she needs to void
[2018-07-16] MEDS: dilTIAZem HCl 90mg tab ORAL SCH (05:39)
[2018-07-16 06:01] LABS: % IRON SATURATION 5 % (15-50); IRON 23 ug/dL (50-175); TOTAL IRON BINDING CAPACITY 424 ug/dL (250-450)
[2018-07-16 06:07] LABS: ALANINE AMINOTRANSFERASE 20 U/L (12-78); ALBUMIN/GLOBULIN RATIO 0.9 (1.0-2.7); ALKALINE PHOSPHATASE 98 U/L (46-116); ANION GAP 6 mmol/L (5-15); ASPARTATE AMINO TRANSFERASE 13 U/L (15-37); BILIRUBIN,TOTAL 0.6 MG/DL (0.2-1.0); BLOOD UREA NITROGEN 17 mg/dL (7-18); CALCIUM 8.6 MG/DL (8.5-10.1); CARBON DIOXIDE 27 MMOL/L (21-32); CHLORIDE 106 MMOL/L (98-107); CREATININE 0.8 MG/DL (0.55-1.30); FERRITIN 15 NG/ML (8-388); POTASSIUM 3.9 MMOL/L (3.5-5.1); SODIUM 139 MMOL/L (136-145)
[2018-07-16 06:37] LABS: PHOSPHORUS 4.2 MG/DL (2.5-4.9)
--- NOTE | 2018-07-16 06:45 | NUR ---
NURSE NOTES: Transferred per bed to rm 216-1, VSS, AAOX4. Belongings with pt. Hand off to RN Ji
--- NOTE | 2018-07-16 07:00 | NUR ---
NURSE NOTES: Received report from Alexandria Llamas. Pt is sitting up in bed with no complaints of pain or SOB. Bed is in lowest position, side rails up X2, and call light is within reach. WIll continue to monitor.
[2018-07-16] MEDS: Furosemide 40mg tab ORAL SCH (08:31)
[2018-07-16] MEDS: Eliquis 2.5mg tablet ORAL SCH ×2 (08:31→17:37)
[2018-07-16] MEDS ORDERED: Eliquis 2.5mg tablet ORAL SCH ×2 (09:00)
[2018-07-16] MEDS ORDERED: Furosemide 40mg tab ORAL SCH ×3 (09:00)
--- NOTE | 2018-07-16 10:51 | Infectious Diseases Prog Note ---
Assessment/Plan Assessment/Plan A; Leukocytosis likely secondary to distress atrial fibrillation, flutter, now is rate control, Systolic CHF morbid obesity, hypertension dyslipidemia. P; Observe off antibiotic Subjective ROS Limited/Unobtainable: No Constitutional: Reports: no symptoms, other - doing much better Respiratory: Reports: no symptoms Cardiovascular: Reports: no symptoms Gastrointestinal/Abdominal: Reports: no symptoms Genitourinary: Reports: no symptoms Allergies: Coded Allergies: NO KNOWN ALLERGIES (Unverified Allergy, Unknown, 02/19/18) Objective Vital Signs Last 24 Hour Vital Signs Date Time Temp Pulse Resp B/P (MAP) Pulse Ox O2 Delivery O2 Flow Rate FiO2 07/16/18 08:32 68 07/16/18 08:00 96.8 68 18 133/67 (89) 92 07/16/18 06:52 98.6 85 18 133/66 (88) 92 07/16/18 06:00 85 21 133/72 (92) 93 07/16/18 05:39 71 133/71 07/16/18 05:00 86 21 132/71 (91) 93 07/16/18 04:00 Nasal Cannula 2.0 07/16/18 04:00 97.4 88 23 127/73 (91) 92 07/16/18 04:00 88 07/16/18 03:00 82 25 122/83 (96) 92 07/16/18 02:04 84 24 126/59 (81) 92 07/16/18 01:00 88 24 127/77 (94) 93 07/16/18 00:00 Nasal Cannula 2.0 07/16/18 00:00 89 24 120/72 (88) 93 07/16/18 00:00 89 07/15/18 23:36 90 116/99 07/15/18 23:00 89 26 116/99 (105) 93 07/15/18 22:00 81 29 138/68 (91) 90 07/15/18 21:00 85 25 140/61 (87) 91 07/15/18 20:00 90 25 115/61 (79) 91 07/15/18 20:00 90 07/15/18 20:00 Nasal Cannula 2.0 07/15/18 19:00 90 26 100/46 (64) 91 07/15/18 18:01 102 125/74 07/15/18 18:00 91 24 125/74 (91) 93 07/15/18 17:00 91 25 93/65 (74) 92 07/15/18 16:00 88 07/15/18 16:00 98.3 91 24 109/59 (76) 94 07/15/18 16:00 Nasal Cannula 2.0 07/15/18 15:00 89 25 102/54 (70) 96 07/15/18 14:30 83 24 106/58 (74) 96 07/15/18 14:00 67 25 141/73 (95) 95 07/15/18 13:30 66 25 141/73 (95) 95 07/15/18 13:15 66 113/92 07/15/18 13:00 67 24 113/92 (99) 95 07/15/18 12:30 90 24 115/73 (87) 97 07/15/18 12:00 86 07/15/18 12:00 98.3 87 24 126/68 (87) 98 07/15/18 12:00 Nasal Cannula 2.0 07/15/18 11:59 77 126/68 07/15/18 11:30 84 24 126/68 (87) 97 07/15/18 11:00 85 19 106/65 (79) 98 Height (Feet): 5 Height (Inches): 2.00 Weight (Pounds): 237 General Appearance: no acute distress HEENT: mucous membranes moist Respiratory/Chest: lungs clear Cardiovascular: normal rate Abdomen: soft, non tender Extremities: other - edema of legs Neurologic/Psychiatric: alert, oriented x 3, responsive Microbiology Date/Time Source Procedure Growth Status 07/14/18 15:47 Nasal Nares MRSA Culture - Final NO METHICILLIN RESISTANT STAPH AUREUS... Complete 07/14/18 15:47 Rectum VRE Culture - Final NO VANCOMYCIN RESISTANT ENTEROCOCCUS ... Complete 07/14/18 15:47 Rectum - Final NO CARBAPENEM-RESISTANT ENTEROBACTERI... Complete Laboratory Tests Test 07/16/18 04:00 White Blood Count 12.4 K/UL (4.8-10.8) H Red Blood Count 4.50 M/UL (4.20-5.40) Hemoglobin 11.1 G/DL (12.0-16.0) L Hematocrit 35.7 % (37.0-47.0) L Mean Corpuscular Volume 79 FL (80-99) L Mean Corpuscular Hemoglobin 24.7 PG (27.0-31.0) L Mean Corpuscular Hemoglobin Concent 31.2 G/DL (32.0-36.0) L Red Cell Distribution Width 15.4 % (11.6-14.8) H Platelet Count 253 K/UL (150-450) Mean Platelet Volume 7.4 FL (6.5-10.1) Neutrophils (%) (Auto) 70.6 % (45.0-75.0) Lymphocytes (%) (Auto) 14.4 % (20.0-45.0) L Monocytes (%) (Auto) 10.5 % (1.0-10.0) H Eosinophils (%) (Auto) 3.1 % (0.0-3.0) H Basophils (%) (Auto) 1.4 % (0.0-2.0) Sodium Level 139 MMOL/L (136-145) Potassium Level 3.9 MMOL/L (3.5-5.1) Chloride Level 106 MMOL/L (98-107) Carbon Dioxide Level 27 MMOL/L (21-32) Anion Gap 6 mmol/L (5-15) Blood Urea Nitrogen 17 mg/dL (7-18) Creatinine 0.8 MG/DL (0.55-1.30) Estimat Glomerular Filtration Rate > 60 mL/min (>60) Glucose Level 91 MG/DL (74-106) Uric Acid 6.3 MG/DL (2.6-7.2) Calcium Level 8.6 MG/DL (8.5-10.1) Phosphorus Level 4.2 MG/DL (2.5-4.9) Magnesium Level 1.9 MG/DL (1.8-2.4) Iron Level 23 ug/dL (50-175) L Total Iron Binding Capacity 424 ug/dL (250-450) Percent Iron Saturation 5 % (15-50) L Unsaturated Iron Binding 401 ug/dL (112-346) H Ferritin 15 NG/ML (8-388) Total Bilirubin 0.6 MG/DL (0.2-1.0) Aspartate Amino Transf (AST/SGOT) 13 U/L (15-37) L Alanine Aminotransferase (ALT/SGPT) 20 U/L (12-78) Alkaline Phosphatase 98 U/L (46-116) Pro-B-Type Natriuretic Peptide 968 pg/mL (0-125) H Total Protein 6.3 G/DL (6.4-8.2) L Albumin 3.0 G/DL (3.4-5.0) L Globulin 3.3 g/dL Albumin/Globulin Ratio 0.9 (1.0-2.7) L Vitamin B12 Level 1141 PG/ML (193-986) H Folate 15.0 NG/ML (8.6-58.9) Thyroid Stimulating Hormone (TSH) 2.427 uiU/mL (0.358-3.740) Free Thyroxine 1.10 NG/DL (0.76-1.46) Digoxin Level 0.5 NG/ML (0.9-2.0) L Current Medications Medications (Trade) Dose Ordered Sig/Kaleb Route PRN Reason Start Time Stop Time Status Last Admin Dose Admin Acetaminophen (Tylenol) 650 mg Q4H PRN ORAL Mild Pain/Temp > 100.5 07/16/18 08:15 08/13/18 20:14 Apixaban (Eliquis) 5 mg BID ORAL 07/16/18 09:00 08/14/18 17:59 07/16/18 08:31 Digoxin (Lanoxin) 0.25 mg DAILY ORAL 07/16/18 09:00 08/15/18 08:59 07/16/18 08:32 Diltiazem HCl (Cardizem) 90 mg EVERY 6 HOURS ORAL 07/16/18 12:00 08/14/18 11:59 Furosemide (Lasix) 40 mg DAILY ORAL 07/16/18 09:00 08/15/18 08:59 07/16/18 08:31 Iopamidol (Isovue-370 150ml) 150 ml NOW PRN INJ Radiology Procedure 07/16/18 12:30 08/15/18 12:29 Iron Sucrose 200 mg/Sodium Chloride 120 ml @ 240 mls/hr ONCE ONCE IV 07/16/18 12:00 07/16/18 12:29 Pantoprazole (Protonix) 40 mg DAILY ORAL 07/16/18 09:00 08/14/18 08:59 07/16/18 08:32 Lv Martell MD Jul 16, 2018 10:51
[2018-07-16] MEDS ORDERED: Iron Sucrose 200 MG in NS 110 ML IV ONE (12:00)
[2018-07-16] MEDS ORDERED: dilTIAZem HCl 90mg tab ORAL SCH ×3 (12:00)
--- NOTE | 2018-07-16 12:27 | Nephrology Progress Note ---
Assessment/Plan Problem List: (1) Atrial flutter (2) Morbid obesity (3) HTN (hypertension) Assessment Atrial flutter CHF (congestive heart failure) Obesity morbid HTN Mild Anemia low Iron Plan IV Iron- Per cardio K supplement Subjective ROS Limited/Unobtainable: No Constitutional: Reports: other - less SOB Objective Objective Last 24 Hour Vital Signs Date Time Temp Pulse Resp B/P (MAP) Pulse Ox O2 Delivery O2 Flow Rate FiO2 07/16/18 12:00 97.7 91 18 117/61 (79) 95 07/16/18 11:24 95 161/79 07/16/18 09:00 Nasal Cannula 2.0 07/16/18 08:32 68 07/16/18 08:00 90 07/16/18 08:00 96.8 68 18 133/67 (89) 92 07/16/18 06:52 98.6 85 18 133/66 (88) 92 07/16/18 06:00 85 21 133/72 (92) 93 07/16/18 05:39 71 133/71 07/16/18 05:00 86 21 132/71 (91) 93 07/16/18 04:00 Nasal Cannula 2.0 07/16/18 04:00 97.4 88 23 127/73 (91) 92 07/16/18 04:00 88 07/16/18 03:00 82 25 122/83 (96) 92 07/16/18 02:04 84 24 126/59 (81) 92 07/16/18 01:00 88 24 127/77 (94) 93 07/16/18 00:00 Nasal Cannula 2.0 07/16/18 00:00 89 24 120/72 (88) 93 07/16/18 00:00 89 07/15/18 23:36 90 116/99 07/15/18 23:00 89 26 116/99 (105) 93 07/15/18 22:00 81 29 138/68 (91) 90 07/15/18 21:00 85 25 140/61 (87) 91 07/15/18 20:00 90 25 115/61 (79) 91 07/15/18 20:00 90 07/15/18 20:00 Nasal Cannula 2.0 07/15/18 19:00 90 26 100/46 (64) 91 07/15/18 18:01 102 125/74 12/31/18 18:00 91 24 125/74 (91) 93 07/15/18 17:00 91 25 93/65 (74) 92 07/15/18 16:00 88 07/15/18 16:00 98.3 91 24 109/59 (76) 94 07/15/18 16:00 Nasal Cannula 2.0 07/15/18 15:00 89 25 102/54 (70) 96 07/15/18 14:30 83 24 106/58 (74) 96 07/15/18 14:00 67 25 141/73 (95) 95 07/15/18 13:30 66 25 141/73 (95) 95 07/15/18 13:15 66 113/92 07/15/18 13:00 67 24 113/92 (99) 95 07/15/18 12:30 90 24 115/73 (87) 97 Intake and Output 07/15/18 07/16/18 18:59 06:59 Intake Total 1014 ml 240 ml Output Total 660 ml 695 ml Balance 354 ml -455 ml Intake Oral 960 ml 240 ml IV Total 54 ml Output Urine Total 660 ml 695 ml Laboratory Tests 07/16/18 04:00: White Blood Count 12.4H, Red Blood Count 4.50, Hemoglobin 11.1L, Hematocrit 35.7L, Mean Corpuscular Volume 79L, Mean Corpuscular Hemoglobin 24.7L, Mean Corpuscular Hemoglobin Concent 31.2L, Red Cell Distribution Width 15.4H, Platelet Count 253, Mean Platelet Volume 7.4, Neutrophils (%) (Auto) 70.6, Lymphocytes (%) (Auto) 14.4L, Monocytes (%) (Auto) 10.5H, Eosinophils (%) (Auto ) 3.1H, Basophils (%) (Auto) 1.4, Sodium Level 139, Potassium Level 3.9, Chloride Level 106, Carbon Dioxide Level 27, Anion Gap 6, Blood Urea Nitrogen 17 , Creatinine 0.8, Estimat Glomerular Filtration Rate > 60, Glucose Level 91, Uric Acid 6.3, Calcium Level 8.6, Phosphorus Level 4.2, Magnesium Level 1.9, Iron Level 23L, Total Iron Binding Capacity 424, Percent Iron Saturation 5L, Unsaturated Iron Binding 401H, Ferritin 15, Total Bilirubin 0.6, Aspartate Amino Transf (AST/SGOT) 13L, Alanine Aminotransferase (ALT/SGPT) 20, Alkaline Phosphatase 98, Pro-B-Type Natriuretic Peptide 968H, Total Protein 6.3L, Albumin 3.0L, Globulin 3.3, Albumin/Globulin Ratio 0.9L, Vitamin B12 Level 1141H , Folate 15.0, Thyroid Stimulating Hormone (TSH) 2.427, Free Thyroxine 1.10, Digoxin Level 0.5L Height (Feet): 5 Height (Inches): 2.00 Weight (Pounds): 237 General Appearance: no apparent distress Cardiovascular: arrhythmia Respiratory/Chest: decreased breath sounds Jann Brito MD Jul 16, 2018 12:27
[2018-07-16] MEDS ORDERED: Isovue-370 150ml vial INJ PRN ×3 (12:30)
--- NOTE | 2018-07-16 15:25 | Cardiac Electrophysiology PN ---
Assessment/Plan Assessment/Plan 1. Atrial flutter with rapid ventricular response. This was newly diagnosed. Cardizem dripDCed and is on Cardizem 90 q 6hr and Digoxin 0.25 daily. change Cardizem to Lopressor 100 bid On Eliquis 5 bid 2. Congestive heart failure. EF 30- 35%. Continue digoxin and change Cardizem to Lopressor 100 bid And add lisinopril and Aldactone . 3. COPD and smoking. Subjective Subjective Remained in atrial flutter. Transferred out of ICU. Objective Last 24 Hour Vital Signs Date Time Temp Pulse Resp B/P (MAP) Pulse Ox O2 Delivery O2 Flow Rate FiO2 07/16/18 12:00 89 07/16/18 12:00 97.7 91 18 117/61 (79) 95 07/16/18 11:24 95 161/79 07/16/18 09:00 Nasal Cannula 2.0 07/16/18 08:32 68 07/16/18 08:00 90 07/16/18 08:00 96.8 68 18 133/67 (89) 92 07/16/18 06:52 98.6 85 18 133/66 (88) 92 07/16/18 06:00 85 21 133/72 (92) 93 07/16/18 05:39 71 133/71 07/16/18 05:00 86 21 132/71 (91) 93 07/16/18 04:00 Nasal Cannula 2.0 07/16/18 04:00 97.4 88 23 127/73 (91) 92 07/16/18 04:00 88 07/16/18 03:00 82 25 122/83 (96) 92 07/16/18 02:04 84 24 126/59 (81) 92 07/16/18 01:00 88 24 127/77 (94) 93 07/16/18 00:00 Nasal Cannula 2.0 07/16/18 00:00 89 24 120/72 (88) 93 07/16/18 00:00 89 07/15/18 23:36 90 116/99 07/15/18 23:00 89 26 116/99 (105) 93 07/15/18 22:00 81 29 138/68 (91) 90 07/15/18 21:00 85 25 140/61 (87) 91 07/15/18 20:00 90 25 115/61 (79) 91 07/15/18 20:00 90 07/15/18 20:00 Nasal Cannula 2.0 07/15/18 19:00 90 26 100/46 (64) 91 07/15/18 18:01 102 125/74 07/15/18 18:00 91 24 125/74 (91) 93 07/15/18 17:00 91 25 93/65 (74) 92 07/15/18 16:00 88 07/15/18 16:00 98.3 91 24 109/59 (76) 94 07/15/18 16:00 Nasal Cannula 2.0 Intake and Output 07/15/18 07/16/18 18:59 06:59 Intake Total 1014 ml 240 ml Output Total 660 ml 695 ml Balance 354 ml -455 ml Intake Oral 960 ml 240 ml IV Total 54 ml Output Urine Total 660 ml 695 ml Laboratory Tests Test 07/16/18 04:00 White Blood Count 12.4 K/UL (4.8-10.8) H Red Blood Count 4.50 M/UL (4.20-5.40) Hemoglobin 11.1 G/DL (12.0-16.0) L Hematocrit 35.7 % (37.0-47.0) L Mean Corpuscular Volume 79 FL (80-99) L Mean Corpuscular Hemoglobin 24.7 PG (27.0-31.0) L Mean Corpuscular Hemoglobin Concent 31.2 G/DL (32.0-36.0) L Red Cell Distribution Width 15.4 % (11.6-14.8) H Platelet Count 253 K/UL (150-450) Mean Platelet Volume 7.4 FL (6.5-10.1) Neutrophils (%) (Auto) 70.6 % (45.0-75.0) Lymphocytes (%) (Auto) 14.4 % (20.0-45.0) L Monocytes (%) (Auto) 10.5 % (1.0-10.0) H Eosinophils (%) (Auto) 3.1 % (0.0-3.0) H Basophils (%) (Auto) 1.4 % (0.0-2.0) Sodium Level 139 MMOL/L (136-145) Potassium Level 3.9 MMOL/L (3.5-5.1) Chloride Level 106 MMOL/L (98-107) Carbon Dioxide Level 27 MMOL/L (21-32) Anion Gap 6 mmol/L (5-15) Blood Urea Nitrogen 17 mg/dL (7-18) Creatinine 0.8 MG/DL (0.55-1.30) Estimat Glomerular Filtration Rate > 60 mL/min (>60) Glucose Level 91 MG/DL (74-106) Uric Acid 6.3 MG/DL (2.6-7.2) Calcium Level 8.6 MG/DL (8.5-10.1) Phosphorus Level 4.2 MG/DL (2.5-4.9) Magnesium Level 1.9 MG/DL (1.8-2.4) Iron Level 23 ug/dL (50-175) L Total Iron Binding Capacity 424 ug/dL (250-450) Percent Iron Saturation 5 % (15-50) L Unsaturated Iron Binding 401 ug/dL (112-346) H Ferritin 15 NG/ML (8-388) Total Bilirubin 0.6 MG/DL (0.2-1.0) Aspartate Amino Transf (AST/SGOT) 13 U/L (15-37) L Alanine Aminotransferase (ALT/SGPT) 20 U/L (12-78) Alkaline Phosphatase 98 U/L (46-116) Pro-B-Type Natriuretic Peptide 968 pg/mL (0-125) H Total Protein 6.3 G/DL (6.4-8.2) L Albumin 3.0 G/DL (3.4-5.0) L Globulin 3.3 g/dL Albumin/Globulin Ratio 0.9 (1.0-2.7) L Vitamin B12 Level 1141 PG/ML (193-986) H Folate 15.0 NG/ML (8.6-58.9) Thyroid Stimulating Hormone (TSH) 2.427 uiU/mL (0.358-3.740) Free Thyroxine 1.10 NG/DL (0.76-1.46) Digoxin Level 0.5 NG/ML (0.9-2.0) L Microbiology Date/Time Source Procedure Growth Status 07/14/18 15:47 Nasal Nares MRSA Culture - Final NO METHICILLIN RESISTANT STAPH AUREUS... Complete 07/14/18 15:47 Rectum VRE Culture - Final NO VANCOMYCIN RESISTANT ENTEROCOCCUS ... Complete 07/14/18 15:47 Rectum - Final NO CARBAPENEM-RESISTANT ENTEROBACTERI... Complete Objective HEAD AND NECK: Shows no JVD. LUNGS: Decreased breath sounds. CARDIOVASCULAR: Shows irregularly irregular S1 and S2 with no gallop or murmur. ABDOMEN: Soft. EXTREMITIES: No pitting edema. Shawn Gonzalez MD Jul 16, 2018 15:25
--- NOTE | 2018-07-16 16:52 | Pulmonology Progress Note ---
Assessment/Plan Assessment/Plan PULMONARY PROGRESS NOTE REASON FOR CONSULTATION: Shortness of breath, atrial fibrillation and atrial flutter with RVR. HISTORY OF PRESENT ILLNESS: An elderly female admitted with substernal chest pain. Denies any nausea, vomiting, or diarrhea. Has never had any history of atrial fibrillation or atrial flutter. No history of KS. She does smoke tobacco and has had some lower extremity edema and that has been increasing. She did see her primary physician who was concerned about CHF. She was brought into the emergency room, found to be in atrial fibrillation. She has been started on diltiazem drip. She has no other symptoms or concerns. In the emergency room, the patient was started on amiodarone without improvement of her rate control and subsequently was started on diltiazem as well as Lovenox for anticoagulation. PAST MEDICAL HISTORY: Includes COPD, hypertension, hypercholesterolemia, and obesity. SOCIAL HISTORY: Positive for tobacco about a pack a day. No alcohol or drugs. FAMILY HISTORY: Noncontributory. MEDICATIONS: Pre-hospital medications are reviewed, reconciled, and documented in electronic record. PAST SURGICAL HISTORY: Otherwise negative. ALLERGIES: She has no allergies. PHYSICAL EXAMINATION: VSS noted GENERAL: At the time of my exam, she is alert. She is oriented. She is in no acute respiratory distress. She is afebrile. HEENT: She is normocephalic and atraumatic. Oropharynx is moist. Nasal mucosa is moist. NECK: Supple without lymphadenopathy. LUNGS: Bilateral crackles. No wheezes present. HEART: Irregularly irregular with an audible murmur. ABDOMEN: Soft, obese, and nontender. Positive bowel sounds. EXTREMITIES: Positive edema. No focal neurological deficits. LABORATORY AND IMAGING DATA: Her white count 10.9, hemoglobin 12.2, and platelets are 292,000. Her sodium is 144, potassium 3.9, chloride 109, bicarbonate is 23, BUN is 14, creatinine 0.7, and glucose is 111. Her troponin 0.007. Her NPA is 1613. Chest x-ray report is not available. Per the ER record, CT scan was performed, excluding a pulmonary embolism. ASSESSMENT: Atrial fibrillation and atrial flutter with rapid ventricular rate, hypertension, hyperlipidemia, obesity, and possible congestive heart failure. PLAN: For the patient, she is in the intensive care unit for rate control of her arrhythmia. Lovenox for anticoagulation. DVT prophylaxis. 2D echo. Trend her troponins. Aspiration precautions. Home meds. Glycemic control as needed and wound care. We will continue to follow p.r.n. blood gases and chest x-ray as needed. O2 to maintain sats greater than 90%. Greater than 35 minutes of critical care time spent with the patient discussing the case with the patient's family, plan today discussed with consultants, monitoring for bleeding and hemodynamic stability. Subjective ROS Limited/Unobtainable: No Allergies: Coded Allergies: NO KNOWN ALLERGIES (Unverified Allergy, Unknown, 02/19/18) Objective Last 24 Hour Vital Signs Date Time Temp Pulse Resp B/P (MAP) Pulse Ox O2 Delivery O2 Flow Rate FiO2 07/16/18 12:00 89 07/16/18 12:00 97.7 91 18 117/61 (79) 95 07/16/18 11:24 95 161/79 07/16/18 09:00 Nasal Cannula 2.0 07/16/18 08:32 68 07/16/18 08:00 90 07/16/18 08:00 96.8 68 18 133/67 (89) 92 07/16/18 06:52 98.6 85 18 133/66 (88) 92 07/16/18 06:00 85 21 133/72 (92) 93 07/16/18 05:39 71 133/71 07/16/18 05:00 86 21 132/71 (91) 93 07/16/18 04:00 Nasal Cannula 2.0 07/16/18 04:00 97.4 88 23 127/73 (91) 92 07/16/18 04:00 88 07/16/18 03:00 82 25 122/83 (96) 92 07/16/18 02:04 84 24 126/59 (81) 92 07/16/18 01:00 88 24 127/77 (94) 93 07/16/18 00:00 Nasal Cannula 2.0 07/16/18 00:00 89 24 120/72 (88) 93 07/16/18 00:00 89 07/15/18 23:36 90 116/99 07/15/18 23:00 89 26 116/99 (105) 93 07/15/18 22:00 81 29 138/68 (91) 90 12/31/18 21:00 85 25 140/61 (87) 91 07/15/18 20:00 90 25 115/61 (79) 91 07/15/18 20:00 90 07/15/18 20:00 Nasal Cannula 2.0 07/15/18 19:00 90 26 100/46 (64) 91 07/15/18 18:01 102 125/74 07/15/18 18:00 91 24 125/74 (91) 93 07/15/18 17:00 91 25 93/65 (74) 92 Intake and Output 07/15/18 07/16/18 19:00 07:00 Intake Total 1006 ml 240 ml Output Total 655 ml 620 ml Balance 351 ml -380 ml Intake Oral 960 ml 240 ml IV Total 46 ml Output Urine Total 655 ml 620 ml Microbiology Date/Time Source Procedure Growth Status 07/14/18 15:47 Nasal Nares MRSA Culture - Final NO METHICILLIN RESISTANT STAPH AUREUS... Complete 07/14/18 15:47 Rectum VRE Culture - Final NO VANCOMYCIN RESISTANT ENTEROCOCCUS ... Complete 07/14/18 15:47 Rectum - Final NO CARBAPENEM-RESISTANT ENTEROBACTERI... Complete Laboratory Tests 07/16/18 04:00: White Blood Count 12.4H, Red Blood Count 4.50, Hemoglobin 11.1L, Hematocrit 35.7L, Mean Corpuscular Volume 79L, Mean Corpuscular Hemoglobin 24.7L, Mean Corpuscular Hemoglobin Concent 31.2L, Red Cell Distribution Width 15.4H, Platelet Count 253, Mean Platelet Volume 7.4, Neutrophils (%) (Auto) 70.6, Lymphocytes (%) (Auto) 14.4L, Monocytes (%) (Auto) 10.5H, Eosinophils (%) (Auto ) 3.1H, Basophils (%) (Auto) 1.4, Sodium Level 139, Potassium Level 3.9, Chloride Level 106, Carbon Dioxide Level 27, Anion Gap 6, Blood Urea Nitrogen 17 , Creatinine 0.8, Estimat Glomerular Filtration Rate > 60, Glucose Level 91, Uric Acid 6.3, Calcium Level 8.6, Phosphorus Level 4.2, Magnesium Level 1.9, Iron Level 23L, Total Iron Binding Capacity 424, Percent Iron Saturation 5L, Unsaturated Iron Binding 401H, Ferritin 15, Total Bilirubin 0.6, Aspartate Amino Transf (AST/SGOT) 13L, Alanine Aminotransferase (ALT/SGPT) 20, Alkaline Phosphatase 98, Pro-B-Type Natriuretic Peptide 968H, Total Protein 6.3L, Albumin 3.0L, Globulin 3.3, Albumin/Globulin Ratio 0.9L, Vitamin B12 Level 1141H , Folate 15.0, Thyroid Stimulating Hormone (TSH) 2.427, Free Thyroxine 1.10, Digoxin Level 0.5L Current Medications Medications (Trade) Dose Ordered Sig/Kaleb Route PRN Reason Start Time Stop Time Status Last Admin Dose Admin Acetaminophen (Tylenol) 650 mg Q4H PRN ORAL Mild Pain/Temp > 100.5 07/16/18 08:15 08/13/18 20:14 Apixaban (Eliquis) 5 mg BID ORAL 07/16/18 09:00 08/14/18 17:59 07/16/18 08:31 Digoxin (Lanoxin) 0.25 mg DAILY ORAL 07/16/18 09:00 08/15/18 08:59 07/16/18 08:32 Furosemide (Lasix) 40 mg DAILY ORAL 07/16/18 09:00 08/15/18 08:59 07/16/18 08:31 Iopamidol (Isovue-370 150ml) 150 ml NOW PRN INJ Radiology Procedure 07/16/18 12:30 08/15/18 12:29 Lisinopril (Zestril) 10 mg DAILY ORAL 07/17/18 09:00 08/16/18 08:59 Metoprolol Tartrate (Lopressor) 100 mg EVERY 12 HOURS ORAL 07/16/18 21:00 08/15/18 20:59 Pantoprazole (Protonix) 40 mg DAILY ORAL 07/16/18 09:00 08/14/18 08:59 07/16/18 08:32 Potassium Chloride (K-Dur) 40 meq DAILY ORAL 07/17/18 09:00 08/16/18 08:59 Spironolactone (Aldactone) 25 mg DAILY ORAL 07/17/18 09:00 08/16/18 08:59 Yo Valenzuela MD Jul 16, 2018 16:52
--- NOTE | 2018-07-16 19:54 | NUR ---
HAND-OFF: Report given to Alexandria Mooney. Plan of care endorsed.
--- NOTE | 2018-07-16 22:03 | General Progress Note ---
Assessment/Plan Problem List: (1) Hypoxia ICD Codes: R09.02 - Hypoxemia SNOMED: 782781398 (2) Atrial flutter ICD Codes: I48.92 - Unspecified atrial flutter SNOMED: 2709523 Qualifiers: Qualified Codes: I48.92 - Unspecified atrial flutter (3) CHF (congestive heart failure) ICD Codes: I50.9 - Heart failure, unspecified SNOMED: 19316759 Qualifiers: Qualified Codes: I50.9 - Heart failure, unspecified (4) Elevated WBC count ICD Codes: D72.829 - Elevated white blood cell count, unspecified SNOMED: 734944195, 537902939 Status: progressing Assessment/Plan r/o PE a fib w rvr improved off drip hypoxia resolved Subjective ROS Limited/Unobtainable: Yes Allergies: Coded Allergies: NO KNOWN ALLERGIES (Unverified Allergy, Unknown, 02/19/18) Objective Last 24 Hour Vital Signs Date Time Temp Pulse Resp B/P (MAP) Pulse Ox O2 Delivery O2 Flow Rate FiO2 07/16/18 21:36 90 121/65 07/16/18 16:00 97.7 90 18 121/65 (83) 91 07/16/18 16:00 90 07/16/18 12:00 89 07/16/18 12:00 97.7 91 18 117/61 (79) 95 07/16/18 11:24 95 161/79 07/16/18 09:00 Nasal Cannula 2.0 07/16/18 08:32 68 07/16/18 08:00 90 07/16/18 08:00 96.8 68 18 133/67 (89) 92 07/16/18 06:52 98.6 85 18 133/66 (88) 92 07/16/18 06:00 85 21 133/72 (92) 93 07/16/18 05:39 71 133/71 07/16/18 05:00 86 21 132/71 (91) 93 07/16/18 04:00 Nasal Cannula 2.0 07/16/18 04:00 97.4 88 23 127/73 (91) 92 07/16/18 04:00 88 07/16/18 03:00 82 25 122/83 (96) 92 07/16/18 02:04 84 24 126/59 (81) 92 07/16/18 01:00 88 24 127/77 (94) 93 07/16/18 00:00 Nasal Cannula 2.0 07/16/18 00:00 89 24 120/72 (88) 93 07/16/18 00:00 89 07/15/18 23:36 90 116/99 07/15/18 23:00 89 26 116/99 (105) 93 Intake and Output 07/15/18 07/16/18 19:00 07:00 Intake Total 1006 ml 240 ml Output Total 655 ml 620 ml Balance 351 ml -380 ml Intake Oral 960 ml 240 ml IV Total 46 ml Output Urine Total 655 ml 620 ml Laboratory Tests 07/16/18 04:00: White Blood Count 12.4H, Red Blood Count 4.50, Hemoglobin 11.1L, Hematocrit 35.7L, Mean Corpuscular Volume 79L, Mean Corpuscular Hemoglobin 24.7L, Mean Corpuscular Hemoglobin Concent 31.2L, Red Cell Distribution Width 15.4H, Platelet Count 253, Mean Platelet Volume 7.4, Neutrophils (%) (Auto) 70.6, Lymphocytes (%) (Auto) 14.4L, Monocytes (%) (Auto) 10.5H, Eosinophils (%) (Auto ) 3.1H, Basophils (%) (Auto) 1.4, Sodium Level 139, Potassium Level 3.9, Chloride Level 106, Carbon Dioxide Level 27, Anion Gap 6, Blood Urea Nitrogen 17 , Creatinine 0.8, Estimat Glomerular Filtration Rate > 60, Glucose Level 91, Uric Acid 6.3, Calcium Level 8.6, Phosphorus Level 4.2, Magnesium Level 1.9, Iron Level 23L, Total Iron Binding Capacity 424, Percent Iron Saturation 5L, Unsaturated Iron Binding 401H, Ferritin 15, Total Bilirubin 0.6, Aspartate Amino Transf (AST/SGOT) 13L, Alanine Aminotransferase (ALT/SGPT) 20, Alkaline Phosphatase 98, Pro-B-Type Natriuretic Peptide 968H, Total Protein 6.3L, Albumin 3.0L, Globulin 3.3, Albumin/Globulin Ratio 0.9L, Vitamin B12 Level 1141H , Folate 15.0, Thyroid Stimulating Hormone (TSH) 2.427, Free Thyroxine 1.10, Digoxin Level 0.5L Height (Feet): 5 Height (Inches): 2.00 Weight (Pounds): 237 Neck: supple Respiratory/Chest: lungs clear Abdomen: soft Alejo Johnson MD Jul 16, 2018 22:03
[2018-07-17] VITALS: BP 147/78
[2018-07-17 04:00] VITALS: BP 137/87
--- NOTE | 2018-07-17 07:15 | NUR ---
NURSE NOTES: Patient received from SEB Mooney. Patient in bed and sitting on the edge of the bed, eating her breakfast. She is in room air. Denies any shortness of breath. bus monitor in placed. Will need assistance to the bedside commode. IV site is intact and asymptomatic. Bed in lowest position with side rails up. Will continue to follow plan of care.
[2018-07-17 08:00] VITALS: BP_SYST 138; BP_SYST 144; BP_DIAS 57; BP_DIAS 76
[2018-07-17] MEDS: Eliquis 2.5mg tablet ORAL SCH ×2 (08:57→17:29)
[2018-07-17] MEDS: Spironolactone 25mg tab ORAL SCH (08:58)
[2018-07-17] MEDS: Lisinopril 10mg tab ORAL SCH (08:58)
[2018-07-17] MEDS: Furosemide 40mg tab ORAL SCH (08:59)
--- NOTE | 2018-07-17 10:55 | Pulmonology Progress Note ---
Assessment/Plan Problems: (1) Hypoxia (2) Snoring (3) Obesity (4) Atrial flutter (5) CHF (congestive heart failure) (6) Morbid obesity Assessment/Plan -Optimize pulmonary hygiene/mobilize as tolerated -PRN O2 -Management of AFl per cards -Monitor volumes and renal function -DVT Px: Eliquis -NEEDS AN OUTPATIENT PULMONARY EVAL, INCLUDING PFT and PSG Subjective Allergies: Coded Allergies: NO KNOWN ALLERGIES (Unverified Allergy, Unknown, 02/19/18) Subjective AFVSS O2 needs stable in AF no F/C no CP no SOB Objective Last 24 Hour Vital Signs Date Time Temp Pulse Resp B/P (MAP) Pulse Ox O2 Delivery O2 Flow Rate FiO2 07/17/18 08:58 138/87 07/17/18 08:58 88 138/87 07/17/18 08:57 88 07/17/18 08:00 98.1 88 20 138/57 (84) 94 07/17/18 04:00 77 07/17/18 04:00 97.7 70 21 137/87 (104) 91 07/17/18 00:00 97.9 71 22 147/78 (101) 96 07/17/18 00:00 101 07/16/18 21:36 90 121/65 07/16/18 21:00 Nasal Cannula 2.0 07/16/18 20:00 99.0 76 22 151/80 (103) 91 07/16/18 20:00 87 07/16/18 16:00 97.7 90 18 121/65 (83) 91 07/16/18 16:00 90 07/16/18 12:00 89 07/16/18 12:00 97.7 91 18 117/61 (79) 95 07/16/18 11:24 95 161/79 Intake and Output 07/16/18 07/17/18 18:59 06:59 Intake Total 880 ml 200 ml Output Total 1600 ml Balance -720 ml 200 ml Intake Oral 880 ml 200 ml Output Urine Total 1600 ml # Voids 4 2 General Appearance: WD/WN, no acute distress HEENT: normocephalic, atraumatic, anicteric, mucous membranes moist Respiratory/Chest: chest wall non-tender, lungs clear, normal breath sounds, no respiratory distress, no accessory muscle use Cardiovascular: irregularly irregular Abdomen: normal bowel sounds, soft, non tender, no organomegaly, non distended , no mass Extremities: no cyanosis, no clubbing, no edema Microbiology Date/Time Source Procedure Growth Status 07/14/18 15:47 Nasal Nares MRSA Culture - Final NO METHICILLIN RESISTANT STAPH AUREUS... Complete 07/14/18 15:47 Rectum VRE Culture - Final NO VANCOMYCIN RESISTANT ENTEROCOCCUS ... Complete 07/14/18 15:47 Rectum - Final NO CARBAPENEM-RESISTANT ENTEROBACTERI... Complete Current Medications Medications (Trade) Dose Ordered Sig/Kaleb Route PRN Reason Start Time Stop Time Status Last Admin Dose Admin Acetaminophen (Tylenol) 650 mg Q4H PRN ORAL Mild Pain/Temp > 100.5 07/16/18 08:15 08/13/18 20:14 Apixaban (Eliquis) 5 mg BID ORAL 07/16/18 09:00 08/14/18 17:59 07/17/18 08:57 Digoxin (Lanoxin) 0.25 mg DAILY ORAL 07/16/18 09:00 08/15/18 08:59 07/17/18 08:57 Furosemide (Lasix) 40 mg DAILY ORAL 07/16/18 09:00 08/15/18 08:59 07/17/18 08:59 Iopamidol (Isovue-370 150ml) 150 ml NOW PRN INJ Radiology Procedure 07/16/18 12:30 08/15/18 12:29 Lisinopril (Zestril) 10 mg DAILY ORAL 07/17/18 09:00 08/16/18 08:59 07/17/18 08:58 Metoprolol Tartrate (Lopressor) 100 mg EVERY 12 HOURS ORAL 07/16/18 21:00 08/15/18 20:59 07/17/18 08:58 Pantoprazole (Protonix) 40 mg DAILY ORAL 07/16/18 09:00 08/14/18 08:59 07/17/18 08:59 Potassium Chloride (K-Dur) 40 meq DAILY ORAL 07/17/18 09:00 08/16/18 08:59 07/17/18 08:56 Spironolactone (Aldactone) 25 mg DAILY ORAL 07/17/18 09:00 08/16/18 08:59 07/17/18 08:58 Be Boo MD Jul 17, 2018 10:55
[2018-07-17 12:00] VITALS: BP 135/74
--- NOTE | 2018-07-17 12:00 | Infectious Diseases Prog Note ---
Assessment/Plan Assessment/Plan A; Leukocytosis likely reactive atrial fibrillation, flutter, now is rate control, Systolic CHF morbid obesity, hypertension dyslipidemia. P; Observe off antibiotic Subjective ROS Limited/Unobtainable: No Constitutional: Reports: no symptoms, other - doing better Respiratory: Reports: no symptoms Cardiovascular: Reports: no symptoms Gastrointestinal/Abdominal: Reports: no symptoms Genitourinary: Reports: no symptoms Allergies: Coded Allergies: NO KNOWN ALLERGIES (Unverified Allergy, Unknown, 02/19/18) Objective Vital Signs Last 24 Hour Vital Signs Date Time Temp Pulse Resp B/P (MAP) Pulse Ox O2 Delivery O2 Flow Rate FiO2 07/17/18 09:00 Room Air 07/17/18 08:58 138/87 07/17/18 08:58 88 138/87 07/17/18 08:57 88 07/17/18 08:00 98.1 88 20 138/57 (84) 94 07/17/18 07:30 89 07/17/18 04:00 77 07/17/18 04:00 97.7 70 21 137/87 (104) 91 07/17/18 00:00 97.9 71 22 147/78 (101) 96 07/17/18 00:00 101 07/16/18 21:36 90 121/65 07/16/18 21:00 Nasal Cannula 2.0 07/16/18 20:00 99.0 76 22 151/80 (103) 91 07/16/18 20:00 87 07/16/18 16:00 97.7 90 18 121/65 (83) 91 07/16/18 16:00 90 07/16/18 12:00 89 07/16/18 12:00 97.7 91 18 117/61 (79) 95 Height (Feet): 5 Height (Inches): 2.00 Weight (Pounds): 233 General Appearance: no acute distress, other - obese Respiratory/Chest: lungs clear Cardiovascular: normal rate Abdomen: soft, non tender Extremities: other - edema of legs Neurologic/Psychiatric: alert, oriented x 3, responsive Microbiology Date/Time Source Procedure Growth Status 07/14/18 15:47 Nasal Nares MRSA Culture - Final NO METHICILLIN RESISTANT STAPH AUREUS... Complete 07/14/18 15:47 Rectum VRE Culture - Final NO VANCOMYCIN RESISTANT ENTEROCOCCUS ... Complete 07/14/18 15:47 Rectum - Final NO CARBAPENEM-RESISTANT ENTEROBACTERI... Complete Current Medications Medications (Trade) Dose Ordered Sig/Kaleb Route PRN Reason Start Time Stop Time Status Last Admin Dose Admin Acetaminophen (Tylenol) 650 mg Q4H PRN ORAL Mild Pain/Temp > 100.5 07/16/18 08:15 08/13/18 20:14 Apixaban (Eliquis) 5 mg BID ORAL 07/16/18 09:00 08/14/18 17:59 07/17/18 08:57 Digoxin (Lanoxin) 0.25 mg DAILY ORAL 07/16/18 09:00 08/15/18 08:59 07/17/18 08:57 Furosemide (Lasix) 40 mg DAILY ORAL 07/16/18 09:00 08/15/18 08:59 07/17/18 08:59 Iopamidol (Isovue-370 150ml) 150 ml NOW PRN INJ Radiology Procedure 07/16/18 12:30 08/15/18 12:29 Lisinopril (Zestril) 10 mg DAILY ORAL 07/17/18 09:00 08/16/18 08:59 07/17/18 08:58 Metoprolol Tartrate (Lopressor) 100 mg EVERY 12 HOURS ORAL 07/16/18 21:00 08/15/18 20:59 07/17/18 08:58 Pantoprazole (Protonix) 40 mg DAILY ORAL 07/16/18 09:00 08/14/18 08:59 07/17/18 08:59 Potassium Chloride (K-Dur) 40 meq DAILY ORAL 07/17/18 09:00 08/16/18 08:59 07/17/18 08:56 Spironolactone (Aldactone) 25 mg DAILY ORAL 07/17/18 09:00 08/16/18 08:59 07/17/18 08:58 Lv Martell MD Jul 17, 2018 12:00
[2018-07-17 12:49] LABS: APPEARANCE,URINE CLEAR; BILIRUBIN, URINE NEGATIVE (NEGATIVE); COLOR,URINE PALE YELLOW; GLUCOSE, URINE (UA) NEGATIVE (NEGATIVE); KETONES,URINE NEGATIVE (NEGATIVE); LEUKOCYTE ESTERASE ,URINE NEGATIVE (NEGATIVE); NITRITE,URINE NEGATIVE (NEGATIVE); PH,URINE 8 (4.5-8.0); PROTEIN,URINE NEGATIVE (NEGATIVE); UROBILINOGEN,URINE NORMAL MG/DL (0.0-1.0)
--- NOTE | 2018-07-17 12:54 | Cardiac Electrophysiology PN ---
Assessment/Plan Assessment/Plan 1. Newly diagnosed atrial flutter with rapid ventricular response. This was newly diagnosed. On Digoxin 0.25 daily and Lopressor 100 bid and Eliquis 5 bid 2. Congestive heart failure. EF 30- 35%. Continue digoxin, Lasix, Lopressor 100 bid and lisinopril and Aldactone . 3. COPD and smoking. 4. Morbid obesity and possible LARA DW RN Subjective Subjective Remained in atrial flutter with controlled rate Objective Last 24 Hour Vital Signs Date Time Temp Pulse Resp B/P (MAP) Pulse Ox O2 Delivery O2 Flow Rate FiO2 07/17/18 12:00 97.3 62 20 135/74 (94) 98 07/17/18 09:00 Room Air 07/17/18 08:58 138/87 07/17/18 08:58 88 138/87 07/17/18 08:57 88 07/17/18 08:00 98.1 88 20 138/57 (84) 94 07/17/18 07:30 89 07/17/18 04:00 77 07/17/18 04:00 97.7 70 21 137/87 (104) 91 07/17/18 00:00 97.9 71 22 147/78 (101) 96 07/17/18 00:00 101 07/16/18 21:36 90 121/65 07/16/18 21:00 Nasal Cannula 2.0 07/16/18 20:00 99.0 76 22 151/80 (103) 91 07/16/18 20:00 87 07/16/18 16:00 97.7 90 18 121/65 (83) 91 07/16/18 16:00 90 Intake and Output 07/16/18 07/17/18 19:00 07:00 Intake Total 880 ml 200 ml Output Total 1600 ml Balance -720 ml 200 ml Intake Oral 880 ml 200 ml Output Urine Total 1600 ml # Voids 4 2 Laboratory Tests Test 07/17/18 12:15 Urine Color Pale yellow Urine Appearance Clear Urine pH 8 (4.5-8.0) Urine Specific [place] 1.010 (1.005-1.035) Urine Protein Negative (NEGATIVE) Urine Glucose (UA) Negative (NEGATIVE) Urine Ketones Negative (NEGATIVE) Urine Blood Negative (NEGATIVE) Urine Nitrite Negative (NEGATIVE) Urine Bilirubin Negative (NEGATIVE) Urine Urobilinogen Normal MG/DL (0.0-1.0) Urine Leukocyte Esterase Negative (NEGATIVE) Urine RBC Pending Urine WBC Pending Urine Squamous Epithelial Cells Pending Urine Bacteria Pending Microbiology Date/Time Source Procedure Growth Status 07/14/18 15:47 Nasal Nares MRSA Culture - Final NO METHICILLIN RESISTANT STAPH AUREUS... Complete 07/14/18 15:47 Rectum VRE Culture - Final NO VANCOMYCIN RESISTANT ENTEROCOCCUS ... Complete 07/14/18 15:47 Rectum - Final NO CARBAPENEM-RESISTANT ENTEROBACTERI... Complete Objective HEAD AND NECK: No JVD. LUNGS: Decreased breath sounds. CARDIOVASCULAR: Irregularly irregular S1 and S2 with no gallop or murmur. ABDOMEN: Soft. EXTREMITIES: No pitting edema. Shawn Gonzalez MD Jul 17, 2018 12:54
--- NOTE | 2018-07-17 12:58 | Nephrology Progress Note ---
Assessment/Plan Problem List: (1) Atrial flutter (2) Morbid obesity (3) HTN (hypertension) Assessment Atrial flutter CHF (congestive heart failure) Obesity morbid HTN Mild Anemia low Iron Plan stable from renal stand IV Iron- Per cardio K supplement ? DC Subjective ROS Limited/Unobtainable: No Objective Objective Last 24 Hour Vital Signs Date Time Temp Pulse Resp B/P (MAP) Pulse Ox O2 Delivery O2 Flow Rate FiO2 07/17/18 12:00 97.3 62 20 135/74 (94) 98 07/17/18 09:00 Room Air 07/17/18 08:58 138/87 07/17/18 08:58 88 138/87 07/17/18 08:57 88 07/17/18 08:00 98.1 88 20 138/57 (84) 94 07/17/18 07:30 89 07/17/18 04:00 77 07/17/18 04:00 97.7 70 21 137/87 (104) 91 07/17/18 00:00 97.9 71 22 147/78 (101) 96 07/17/18 00:00 101 07/16/18 21:36 90 121/65 07/16/18 21:00 Nasal Cannula 2.0 07/16/18 20:00 99.0 76 22 151/80 (103) 91 07/16/18 20:00 87 07/16/18 16:00 97.7 90 18 121/65 (83) 91 07/16/18 16:00 90 Intake and Output 07/16/18 07/17/18 18:59 06:59 Intake Total 880 ml 200 ml Output Total 1600 ml Balance -720 ml 200 ml Intake Oral 880 ml 200 ml Output Urine Total 1600 ml # Voids 4 2 Laboratory Tests 07/17/18 12:15: Urine Color Pale yellow, Urine Appearance Clear, Urine pH 8, Urine Specific [place] 1.010, Urine Protein Negative, Urine Glucose (UA) Negative, Urine Ketones Negative, Urine Blood Negative, Urine Nitrite Negative, Urine Bilirubin Negative, Urine Urobilinogen Normal, Urine Leukocyte Esterase Negative, Urine RBC [Pending], Urine WBC [Pending], Urine Squamous Epithelial Cells [Pending], Urine Bacteria [Pending] Height (Feet): 5 Height (Inches): 2.00 Weight (Pounds): 233 General Appearance: no apparent distress, other - anxious to go home Cardiovascular: arrhythmia Respiratory/Chest: decreased breath sounds Abdomen: soft Jann Brito MD Jul 17, 2018 12:58
--- NOTE | 2018-07-17 13:19 | NUR ---
INSURANCE UPDATED CLINICALS FAXED TO: [facility] PLEASE FAX THE REVIEW FX: [phone].. & [facility] WILL TRACK THIS ADMISSION [facility]: [place] P- [phone] F- [phone]
[2018-07-17] MEDS ORDERED: NS 275ml ONE (14:45)
[2018-07-17 16:00] VITALS: BP 110/64
--- NOTE | 2018-07-17 17:19 | General Progress Note ---
Assessment/Plan Problem List: (1) Hypoxia ICD Codes: R09.02 - Hypoxemia SNOMED: 345089472 (2) Atrial flutter ICD Codes: I48.92 - Unspecified atrial flutter SNOMED: 9568166 Qualifiers: Qualified Codes: I48.92 - Unspecified atrial flutter (3) CHF (congestive heart failure) ICD Codes: I50.9 - Heart failure, unspecified SNOMED: 18634184 Qualifiers: Qualified Codes: I50.9 - Heart failure, unspecified (4) Elevated WBC count ICD Codes: D72.829 - Elevated white blood cell count, unspecified SNOMED: 071740330, 209515235 Status: progressing Assessment/Plan r/o PE a fib w rvr needs pulmonary and cardiology clearance \afebrile reviewed chart and labs Subjective ROS Limited/Unobtainable: Yes Allergies: Coded Allergies: NO KNOWN ALLERGIES (Unverified Allergy, Unknown, 02/19/18) Objective Last 24 Hour Vital Signs Date Time Temp Pulse Resp B/P (MAP) Pulse Ox O2 Delivery O2 Flow Rate FiO2 07/17/18 16:00 97.2 91 21 110/64 (79) 98 07/17/18 12:00 97.3 62 20 135/74 (94) 98 07/17/18 11:35 88 07/17/18 09:00 Room Air 07/17/18 08:58 138/87 07/17/18 08:58 88 138/87 07/17/18 08:57 88 07/17/18 08:00 98.1 88 20 138/57 (84) 94 07/17/18 07:30 89 07/17/18 04:00 77 07/17/18 04:00 97.7 70 21 137/87 (104) 91 07/17/18 00:00 97.9 71 22 147/78 (101) 96 07/17/18 00:00 101 07/16/18 21:36 90 121/65 07/16/18 21:00 Nasal Cannula 2.0 07/16/18 20:00 99.0 76 22 151/80 (103) 91 07/16/18 20:00 87 Intake and Output 07/16/18 07/17/18 18:59 06:59 Intake Total 880 ml 200 ml Output Total 1600 ml Balance -720 ml 200 ml Intake Oral 880 ml 200 ml Output Urine Total 1600 ml # Voids 4 2 Laboratory Tests 07/17/18 12:15: Urine Color Pale yellow, Urine Appearance Clear, Urine pH 8, Urine Specific [place] 1.010, Urine Protein Negative, Urine Glucose (UA) Negative, Urine Ketones Negative, Urine Blood Negative, Urine Nitrite Negative, Urine Bilirubin Negative, Urine Urobilinogen Normal, Urine Leukocyte Esterase Negative, Urine RBC 0, Urine WBC 0-2, Urine Squamous Epithelial Cells Occasional, Urine Bacteria Occasional Height (Feet): 5 Height (Inches): 2.00 Weight (Pounds): 233 EENT: PERRL/EOMI Neck: supple Respiratory/Chest: lungs clear Alejo Johnson MD Jul 17, 2018 17:19
--- NOTE | 2018-07-17 18:50 | NUR ---
NURSE NOTES: Per Dr. Gonzalez, OK to discharge.
--- NOTE | 2018-07-17 19:10 | NUR ---
HAND-OFF: Report given to SEB Garnett. Patient stable and in no distress.
--- NOTE | 2018-07-17 19:20 | NUR ---
NURSE NOTES: Received report from Shay Leonard. Pt is resting in the bed in 2L NC w/o distress. Endorsed that VIP will visit pt tonight for HD. Endorsed that pt spit blood during the day shift d/t oxygen supply, and Dr. Calvillo is aware. Safety measures are applied with bed in lowest position, side rails up x2, and breaks are engaged. Call light and side table are w/in reach. Will follow plans of care. Addendum: 07/17/18 at 2021 by JOSH GODOY RN Wrong patient.
--- NOTE | 2018-07-17 19:25 | NUR ---
NURSE NOTES: Received report from Shay Leonard. Pt is resting in the bed in RA w/o distress. Safety measures are applied with bed alarm on, bed in lowest position, side rails up x2, and breaks are engaged. Call light and side table are w/in reach. Will follow plans of care.
[2018-07-17 20:00] VITALS: BP 140/57
[2018-07-18] VITALS: BP 120/67
[2018-07-18 04:00] VITALS: BP 144/80
--- NOTE | 2018-07-18 07:46 | NUR ---
HAND-OFF: Report given to Baldomero Cardenas RN. Stable condition.
[2018-07-18 08:00] VITALS: BP 130/70
--- NOTE | 2018-07-18 08:00 | NUR ---
NURSE NOTES: received pt in the bed, awake, alert, oriented, vital signs stable, no co pain, no SOB, skin warm and dry to touch, intact, respiration regular, respiration regular, obese, up on chair, bed in low position, call light within reach.
[2018-07-18] MEDS: Furosemide 40mg tab ORAL SCH (09:14)
[2018-07-18] MEDS: Spironolactone 25mg tab ORAL SCH (09:15)
[2018-07-18] MEDS: Eliquis 2.5mg tablet ORAL SCH (09:16)
[2018-07-18] MEDS: Lisinopril 10mg tab ORAL SCH (09:17)
--- NOTE | 2018-07-18 10:39 | Cardiac Electrophysiology PN ---
Assessment/Plan Assessment/Plan 1. Newly diagnosed atrial flutter with rapid ventricular response. Rate controlled on Digoxin 0.25 daily and Lopressor 100 bid and Eliquis 5 bid 2. Congestive heart failure. EF 30- 35%. Continue digoxin, Lasix, Lopressor 100 bid, lisinopril and Aldactone . 3. COPD and smoking. 4. Morbid obesity and possible LARA DW RN Subjective Subjective Remained in atrial flutter with controlled rate. No CP or SOB Objective Last 24 Hour Vital Signs Date Time Temp Pulse Resp B/P (MAP) Pulse Ox O2 Delivery O2 Flow Rate FiO2 07/18/18 09:17 130/70 07/18/18 09:16 94 130/70 07/18/18 09:15 94 07/18/18 09:00 Room Air 07/18/18 08:00 91 07/18/18 08:00 98.8 94 22 130/70 (90) 98 07/18/18 04:00 98.1 91 20 144/80 (101) 94 07/18/18 03:38 84 07/18/18 00:00 99.2 92 20 120/67 (84) 95 07/17/18 23:18 87 07/17/18 20:51 93 140/57 07/17/18 20:00 99.5 93 20 140/57 (84) 92 07/17/18 19:00 Room Air 07/17/18 18:54 95 07/17/18 16:00 97.2 91 21 110/64 (79) 98 07/17/18 15:38 94 07/17/18 12:00 97.3 62 20 135/74 (94) 98 07/17/18 11:35 88 Intake and Output 07/17/18 07/18/18 19:00 07:00 Intake Total 960 ml Output Total 2500 ml Balance 960 ml -2500 ml Intake Oral 960 ml Output Urine Total 2500 ml # Voids 2 3 # Bowel Movements 4 Laboratory Tests Test 07/17/18 12:15 Urine Color Pale yellow Urine Appearance Clear Urine pH 8 (4.5-8.0) Urine Specific [place] 1.010 (1.005-1.035) Urine Protein Negative (NEGATIVE) Urine Glucose (UA) Negative (NEGATIVE) Urine Ketones Negative (NEGATIVE) Urine Blood Negative (NEGATIVE) Urine Nitrite Negative (NEGATIVE) Urine Bilirubin Negative (NEGATIVE) Urine Urobilinogen Normal MG/DL (0.0-1.0) Urine Leukocyte Esterase Negative (NEGATIVE) Urine RBC 0 /HPF (0 - 2) Urine WBC 0-2 /HPF (0 - 2) Urine Squamous Epithelial Cells Occasional /LPF Urine Bacteria Occasional /HPF (NONE) Objective HEAD AND NECK: No JVD. LUNGS: Decreased breath sounds. CARDIOVASCULAR: Irregularly irregular S1 and S2 with no gallop or murmur. ABDOMEN: Soft. EXTREMITIES: No pitting edema. Shawn Gonzalez MD Jul 18, 2018 10:39
[2018-07-18 11:54] VITALS: BP 150/87
--- NOTE | 2018-07-18 12:59 | Infectious Diseases Prog Note ---
Assessment/Plan Assessment/Plan A; Leukocytosis likely reactive atrial fibrillation, flutter, now is rate control, Systolic CHF morbid obesity, hypertension dyslipidemia. P; Observe off antibiotic Subjective ROS Limited/Unobtainable: No Constitutional: Reports: no symptoms Respiratory: Reports: no symptoms Cardiovascular: Reports: no symptoms Gastrointestinal/Abdominal: Reports: no symptoms Genitourinary: Reports: no symptoms Allergies: Coded Allergies: NO KNOWN ALLERGIES (Unverified Allergy, Unknown, 02/19/18) Objective Vital Signs Last 24 Hour Vital Signs Date Time Temp Pulse Resp B/P (MAP) Pulse Ox O2 Delivery O2 Flow Rate FiO2 07/18/18 11:54 97.8 89 21 150/87 (108) 97 07/18/18 09:17 130/70 07/18/18 09:16 94 130/70 07/18/18 09:15 94 07/18/18 09:00 Room Air 07/18/18 08:00 91 07/18/18 08:00 98.8 94 22 130/70 (90) 98 07/18/18 04:00 98.1 91 20 144/80 (101) 94 07/18/18 03:38 84 07/18/18 00:00 99.2 92 20 120/67 (84) 95 07/17/18 23:18 87 07/17/18 20:51 93 140/57 07/17/18 20:00 99.5 93 20 140/57 (84) 92 07/17/18 19:00 Room Air 07/17/18 18:54 95 07/17/18 16:00 97.2 91 21 110/64 (79) 98 07/17/18 15:38 94 Height (Feet): 5 Height (Inches): 2.00 Weight (Pounds): 235 General Appearance: no acute distress, other - obese HEENT: mucous membranes moist Cardiovascular: normal rate Abdomen: soft, non tender Extremities: other - edema of legs decreased Neurologic/Psychiatric: alert, oriented x 3, responsive Current Medications Medications (Trade) Dose Ordered Sig/Kaleb Route PRN Reason Start Time Stop Time Status Last Admin Dose Admin Acetaminophen (Tylenol) 650 mg Q4H PRN ORAL Mild Pain/Temp > 100.5 07/16/18 08:15 08/13/18 20:14 Apixaban (Eliquis) 5 mg BID ORAL 07/16/18 09:00 08/14/18 17:59 07/18/18 09:16 Digoxin (Lanoxin) 0.25 mg DAILY ORAL 07/16/18 09:00 08/15/18 08:59 07/18/18 09:15 Furosemide (Lasix) 40 mg DAILY ORAL 07/16/18 09:00 08/15/18 08:59 07/18/18 09:14 Lisinopril (Zestril) 10 mg DAILY ORAL 07/17/18 09:00 08/16/18 08:59 07/18/18 09:17 Metoprolol Tartrate (Lopressor) 100 mg EVERY 12 HOURS ORAL 07/16/18 21:00 08/15/18 20:59 07/18/18 09:16 Pantoprazole (Protonix) 40 mg DAILY ORAL 07/16/18 09:00 08/14/18 08:59 07/18/18 09:15 Potassium Chloride (K-Dur) 40 meq DAILY ORAL 07/17/18 09:00 08/16/18 08:59 07/18/18 09:15 Spironolactone (Aldactone) 25 mg DAILY ORAL 07/17/18 09:00 08/16/18 08:59 07/18/18 09:15 Lv Martell MD Jul 18, 2018 12:59
--- NOTE | 2018-07-18 13:38 | Pulmonology Progress Note ---
Assessment/Plan Problems: (1) Hypoxia (2) Snoring (3) Obesity (4) Atrial flutter (5) CHF (congestive heart failure) (6) Morbid obesity Assessment/Plan -Optimize pulmonary hygiene/mobilize as tolerated -PRN O2 -Management of AFl per cards -Monitor volumes and renal function -DVT Px: Eliquis -NEEDS AN OUTPATIENT PULMONARY EVAL, INCLUDING PFT and PSG Subjective Allergies: Coded Allergies: NO KNOWN ALLERGIES (Unverified Allergy, Unknown, 02/19/18) Subjective AFVSS on RA in AF no F/C no CP no SOB Objective Last 24 Hour Vital Signs Date Time Temp Pulse Resp B/P (MAP) Pulse Ox O2 Delivery O2 Flow Rate FiO2 07/18/18 12:00 85 07/18/18 11:54 97.8 89 21 150/87 (108) 97 07/18/18 09:17 130/70 07/18/18 09:16 94 130/70 07/18/18 09:15 94 07/18/18 09:00 Room Air 07/18/18 08:00 91 07/18/18 08:00 98.8 94 22 130/70 (90) 98 07/18/18 04:00 98.1 91 20 144/80 (101) 94 07/18/18 03:38 84 07/18/18 00:00 99.2 92 20 120/67 (84) 95 07/17/18 23:18 87 07/17/18 20:51 93 140/57 07/17/18 20:00 99.5 93 20 140/57 (84) 92 07/17/18 19:00 Room Air 07/17/18 18:54 95 07/17/18 16:00 97.2 91 21 110/64 (79) 98 07/17/18 15:38 94 Intake and Output 07/17/18 07/18/18 19:00 07:00 Intake Total 960 ml Output Total 2500 ml Balance 960 ml -2500 ml Intake Oral 960 ml Output Urine Total 2500 ml # Voids 2 3 # Bowel Movements 4 General Appearance: WD/WN, no acute distress HEENT: normocephalic, atraumatic, anicteric, mucous membranes moist Respiratory/Chest: chest wall non-tender, lungs clear, normal breath sounds, no respiratory distress, no accessory muscle use Cardiovascular: irregularly irregular Abdomen: normal bowel sounds, soft, non tender, no organomegaly, non distended , no mass Extremities: no cyanosis, no clubbing, no edema Current Medications Medications (Trade) Dose Ordered Sig/Kaleb Route PRN Reason Start Time Stop Time Status Last Admin Dose Admin Acetaminophen (Tylenol) 650 mg Q4H PRN ORAL Mild Pain/Temp > 100.5 07/16/18 08:15 08/13/18 20:14 Apixaban (Eliquis) 5 mg BID ORAL 07/16/18 09:00 08/14/18 17:59 07/18/18 09:16 Digoxin (Lanoxin) 0.25 mg DAILY ORAL 07/16/18 09:00 08/15/18 08:59 07/18/18 09:15 Furosemide (Lasix) 40 mg DAILY ORAL 07/16/18 09:00 08/15/18 08:59 07/18/18 09:14 Lisinopril (Zestril) 10 mg DAILY ORAL 07/17/18 09:00 08/16/18 08:59 07/18/18 09:17 Metoprolol Tartrate (Lopressor) 100 mg EVERY 12 HOURS ORAL 07/16/18 21:00 08/15/18 20:59 07/18/18 09:16 Pantoprazole (Protonix) 40 mg DAILY ORAL 07/16/18 09:00 08/14/18 08:59 07/18/18 09:15 Potassium Chloride (K-Dur) 40 meq DAILY ORAL 07/17/18 09:00 08/16/18 08:59 07/18/18 09:15 Spironolactone (Aldactone) 25 mg DAILY ORAL 07/17/18 09:00 08/16/18 08:59 07/18/18 09:15 Be Boo MD Jul 18, 2018 13:38
--- NOTE | 2018-07-18 13:39 | NUR ---
CASE MANAGEMENT:REVIEW 07/18/18 SI: A FIB/FLUTTER. CHF 97.8 89 21 150/87 97% ON RA IS: K-DUR PO QD LISINOPRIL PO QD ALDACTONE PO QD LOPRESSOR PO Q12 ELIQUIS PO BID DIGOXIN PO QD LASIX PO QD : TELEMETRY STATUS DCP: PATIENT IS FROM HOME WITH FAMILY PLAN: OBSERVE OFF ANTIBIOTICS DISCHARGE HOME
[2018-07-18] MEDS ORDERED: ELIQUIS5 MG PO (13:45)
--- NOTE | 2018-07-18 13:45 | Nephrology Progress Note ---
Assessment/Plan Problem List: (1) Atrial flutter (2) Morbid obesity (3) HTN (hypertension) Assessment Atrial flutter CHF (congestive heart failure) Obesity morbid HTN Mild Anemia low Iron Plan no labs- stable from renal stand IV Iron- Per cardio K supplement ? DC Subjective ROS Limited/Unobtainable: No Objective Objective Last 24 Hour Vital Signs Date Time Temp Pulse Resp B/P (MAP) Pulse Ox O2 Delivery O2 Flow Rate FiO2 07/18/18 12:00 85 07/18/18 11:54 97.8 89 21 150/87 (108) 97 07/18/18 09:17 130/70 07/18/18 09:16 94 130/70 07/18/18 09:15 94 07/18/18 09:00 Room Air 07/18/18 08:00 91 07/18/18 08:00 98.8 94 22 130/70 (90) 98 07/18/18 04:00 98.1 91 20 144/80 (101) 94 07/18/18 03:38 84 07/18/18 00:00 99.2 92 20 120/67 (84) 95 07/17/18 23:18 87 07/17/18 20:51 93 140/57 07/17/18 20:00 99.5 93 20 140/57 (84) 92 07/17/18 19:00 Room Air 07/17/18 18:54 95 07/17/18 16:00 97.2 91 21 110/64 (79) 98 07/17/18 15:38 94 Intake and Output 07/17/18 07/18/18 19:00 07:00 Intake Total 960 ml Output Total 2500 ml Balance 960 ml -2500 ml Intake Oral 960 ml Output Urine Total 2500 ml # Voids 2 3 # Bowel Movements 4 Height (Feet): 5 Height (Inches): 2.00 Weight (Pounds): 235 General Appearance: no apparent distress Objective no change Jann Brito MD Jul 18, 2018 13:45
[2018-07-18] MEDS ORDERED: DIGOXIN250 MCG ORAL (13:46)
[2018-07-18] MEDS ORDERED: FUROSEMIDE40 MG ORAL (13:46)
[2018-07-18] MEDS ORDERED: METOPROLOL SUC100 MG ORAL ×2 (13:47→13:53)
[2018-07-18] MEDS ORDERED: PANTOPRAZOLE SO20 MG ORAL (13:47)
[2018-07-18] MEDS ORDERED: POTASSIUM CHLO20 ME1 ORAL (13:49)
[2018-07-18] MEDS ORDERED: SPIRONOLACTONE25 MG ORAL (13:50)
[2018-07-18] MEDS ORDERED: LISINOPRIL5 MG ORAL (13:53)
--- NOTE | 2018-07-18 15:27 | NUR ---
NURSE NOTES: pt discharge home as ordered, condition stable, family aware.
--- NOTE | 2018-07-19 07:47 | Discharge Summary ---
Discharge Summary Discharge Summary _ DATE OF ADMISSION: 07/14/2018 DATE OF DISCHARGE: 07/18/2018 DISCHARGED BY: Dr. Alejo Gardner CONSULTANTS: Dr. Jann Gonzalez BRIEF HOSPITAL COURSE: Patient is a 57-year-old female, who came in for chest pain and shortness of breath for 2 days with abdominal pain for 1 week. The patient is morbidly obese , she recently went to her PMD and was given diagnosis of severe gastritis. Patient woke up from chest pain at 3 in the morning. Pain was described to be substernal and started suddenly when she was watching TV. She recently had more edema in the lower legs, she denied any calf pain. She denies any fever or chills, no cough, nausea, vomiting, diarrhea or dysuria. She has history of hypertension and hypercholesterolemia. She denied any smoking history and no family history of clots or heart attacks. She denied prior history of CHF or fluid in the lungs. On evaluation at the ED, blood pressure was 139/80, heart rate was 146. EKG done showed atrial flutter versus sinus tachycardia. She was given amiodarone IV push. There was high concern for possible PE. A CT of the chest and thoraxA was negative for acute pulmonary embolus or other acute thoracic vascular pathology. Chest x-ray showed cardiomegaly with mild interstitial congestion. Troponin was negative. Repeat EKG was done, she continued to be on atrial flutter. Cardizem drip was started. She was given Lovenox. She was then admitted to ICU. She underwent cardiac evaluation. Patient has a newly diagnosed atrial flutter with rapid ventricular response. She was continued on Cardizem drip and was eventually started on p.o. Cardizem and IV digoxin. Patient also has congestive heart failure. Echocardiogram showed ejection fraction of 30 to 35% . Patient was short of breath. She was given supplemental oxygenation. He was recommended need for outpatient pulmonary evaluation, PFT and PSG she had leukocytosis was observed off antibiotics. On 07/16/2018, Cardizem drip was discontinued. She was continued on digoxin, Cardizem was changed to Lopressor. Lisinopril and Aldactone was started. She was given Eliquis 5 mg twice daily for anticoagulation. She was eventually transferred out of ICU. Patient was anemic. Anemia workup showed low iron levels,. She was given supplemental IV iron. She remained in atrial flutter with controlled rate. There was no chest pain and troponin was negative x2. She was eventually cleared for discharge home. FINAL DIAGNOSES: Newly diagnosed atrial flutter with RVR, resolved with rate control Acute on chronic systolic CHF Hypertension Morbid obesity COPD Mild anemia with iron deficiency Hypokalemia DISPOSITION: Patient was discharged home. DISCHARGE MEDICATIONS: Refer to Discharge Medication List. DISCHARGE INSTRUCTIONS: Follow-up in a week. I have been assigned to dictate discharge summary on this account, and I was not involved in the patient's management. Rosa Munson NP Jul 19, 2018 07:47
== END 2018-07-18 15:25 | disposition home or self-care (01) | DRG 201 ==
LOC: EMR 14:49 → EDBEDREQSVC 15:42 → EDBEDREQ 16:08 → ICU 16:38 → 2E 07-16 06:49
DX: I48.92 Unspecified atrial flutter (principal); I50.23 Acute on chronic systolic (congestive) heart failure; E66.01 Morbid (severe) obesity due to excess calories; D50.9 Iron deficiency anemia, unspecified; F17.200 Nicotine dependence, unspecified, uncomplicated; E78.5 Hyperlipidemia, unspecified; E87.6 Hypokalemia; I11.0 Hypertensive heart disease with heart failure; J44.9 Chronic obstructive pulmonary disease, unspecified; M17.0 Bilateral primary osteoarthritis of knee; Z85.42 Personal history of malignant neoplasm of other parts of uterus; Z90.710 Acquired absence of both cervix and uterus; Z79.01 Long term (current) use of anticoagulants; I48.91 Unspecified atrial fibrillation; Z68.41 Body mass index [BMI] 40.0-44.9, adult
CPT/HCPCS: 36415; 51702; 71045; 71275; 80048; 80053; 80061; 80162; 81001; 82550; 82607; 82728; 82746; 83036; 83540; 83550; 83735; 83880; 84100; 84439; 84443; 84484; 84550; 85025; 85610; 85730; 86140; 87081; 93005; 93306; 93926; 93970; 93971; 96365; 96368; 96375; 99291; J0282; J2405; J8499

== ENCOUNTER 2018-12-18 07:31 | Inpatient (IN) | payer MEDICAID ==
[~2018-12-18] VITALS: Ht 152.4 cm; Wt 105.8 kg
[~2018-12-18 07:31] MED LIST changes: +DIGOXIN250 MCG ORAL; +ELIQUIS5 MG PO; +FUROSEMIDE40 MG ORAL; +LISINOPRIL5 MG ORAL; +METOPROLOL SUC100 MG ORAL; +PANTOPRAZOLE SO20 MG ORAL; +POTASSIUM CHLO20 ME1 ORAL; +SPIRONOLACTONE25 MG ORAL
[2018-12-18] MEDS ORDERED: OMEPRAZOLE20 M2 ORAL (07:48)
--- NOTE | 2018-12-18 07:51 | Emergency Room Report ---
History of Present Illness General Chief Complaint: Abdominal Pain Source: Patient Present Illness HPI Patient is a 58-year-old male presented after increased abdominal pain. Patient reports of increased left-sided abdominal pain which she describes as crampy in nature. She reports having onset earlier this evening after drinking some herbal tea. She denies any bloody stools. She reports having significant pain and cramping to the left lower abdomen. She is taking Eliquis currently due to cardiac disease. Allergies: Coded Allergies: NO KNOWN ALLERGIES (Unverified Allergy, Unknown, 02/19/18) Patient History Past Medical History: see triage record Reviewed Nursing Documentation: PMH: Agreed; PSxH: Agreed Nursing Documentation-PMH Past Medical History: No History, Except For Hx Hypertension: Yes Hx Cancer: No Hx Gastrointestinal Problems: No Hx Neurological Problems: No Review of Systems All Other Systems: negative except mentioned in HPI Physical Exam Vital Signs Date Time Temp Pulse Resp B/P (MAP) Pulse Ox O2 Delivery O2 Flow Rate FiO2 12/18/18 07:35 98.1 50 20 133/69 (90) 96 Room Air Sp02 EP Interpretation: reviewed, normal General Appearance: normal inspection, alert, GCS 15, obese, Chronically Ill Head: atraumatic ENT: normal ENT inspection, hearing grossly normal, normal voice Neck: normal inspection, full range of motion, supple, no bony tend Respiratory: normal inspection, lungs clear, normal breath sounds, no respiratory distress, no retraction, no wheezing Cardiovascular #1: no edema, tachycardia Gastrointestinal: normal bowel sounds, non tender, soft, no guarding, no hernia , overweight Genitourinary: no CVA tenderness Musculoskeletal: normal inspection, back normal, normal range of motion Neurologic: normal inspection, alert, oriented x3, responsive, hammerer helper III-XII nml as tested, speech normal Psychiatric: normal inspection, judgement/insight normal, mood/affect normal Skin: normal inspection, normal color, no rash Medical Decision Making Diagnostic Impression: Primary Impression: Diverticulitis Additional Impressions: CHF (congestive heart failure) Atrial flutter ER Course Patient presented for abdominal pain. Differential diagnoses included ischemic bowel, appendicitis, perforated viscus, abdominal aortic aneurysm, inferior myocardial infarction, viral gastroenteritis among others. Because of complexity of patient's case laboratory testing and imaging studies were ordered. Patient was noted to have tenderness to the left upper abdomen on physical exam. CT the abdomen pelvis showed evidence of acute diverticulitis to the descending colon. Patient was noted to have elevated white blood count compared to her baseline. She is given IV Zosyn. EKG interpreted by me showed atrial flutter with a rate of 117 with variable block. Patient was noted to be taking anticoagulation with Eliquis. Patient initially had improvement in pain which recurred subsequently.Patient will be admitted for further IV antibiotics due to comorbidities. Dr. Johnson was contacted for inpatient managagement due to prior admission. Laboratory Tests Test 12/18/18 08:10 White Blood Count 20.3 K/UL (4.8-10.8) H Red Blood Count 5.54 M/UL (4.20-5.40) H Hemoglobin 15.1 G/DL (12.0-16.0) Hematocrit 46.6 % (37.0-47.0) Mean Corpuscular Volume 84 FL (80-99) Mean Corpuscular Hemoglobin 27.2 PG (27.0-31.0) Mean Corpuscular Hemoglobin Concent 32.4 G/DL (32.0-36.0) Red Cell Distribution Width 14.0 % (11.6-14.8) Platelet Count 257 K/UL (150-450) Mean Platelet Volume 7.9 FL (6.5-10.1) Neutrophils (%) (Auto) % (45.0-75.0) Lymphocytes (%) (Auto) % (20.0-45.0) Monocytes (%) (Auto) % (1.0-10.0) Eosinophils (%) (Auto) % (0.0-3.0) Basophils (%) (Auto) % (0.0-2.0) Differential Total Cells Counted 100 Neutrophils % (Manual) 92 % (45-75) H Lymphocytes % (Manual) 2 % (20-45) L Monocytes % (Manual) 4 % (1-10) Eosinophils % (Manual) 2 % (0-3) Basophils % (Manual) 0 % (0-2) Band Neutrophils 0 % (0-8) Platelet Estimate Adequate Platelet Morphology Normal Prothrombin Time 10.7 SEC (9.30-11.50) Prothrombin Time INR 1.0 (0.9-1.1) PTT 32 SEC (23-33) Urine Color Pale yellow Urine Appearance Clear Urine pH 5 (4.5-8.0) Urine Specific [place] 1.015 (1.005-1.035) Urine Protein Negative (NEGATIVE) Urine Glucose (UA) Negative (NEGATIVE) Urine Ketones Negative (NEGATIVE) Urine Blood 3+ (NEGATIVE) H Urine Nitrite Negative (NEGATIVE) Urine Bilirubin Negative (NEGATIVE) Urine Urobilinogen 1 MG/DL (0.0-1.0) H Urine Leukocyte Esterase Negative (NEGATIVE) Urine RBC 2-4 /HPF (0 - 2) H Urine WBC 0-2 /HPF (0 - 2) Urine Squamous Epithelial Cells Few /LPF (NONE/OCC) Urine Bacteria Few /HPF (NONE) Sodium Level 141 MMOL/L (136-145) Potassium Level 3.9 MMOL/L (3.5-5.1) Chloride Level 107 MMOL/L (98-107) Carbon Dioxide Level 25 MMOL/L (21-32) Anion Gap 9 mmol/L (5-15) Blood Urea Nitrogen 15 mg/dL (7-18) Creatinine 0.7 MG/DL (0.55-1.30) Estimate Glomerular Filtration Rate > 60 mL/min (>60) Glucose Level 119 MG/DL (74-106) H Calcium Level 9.3 MG/DL (8.5-10.1) Total Bilirubin 0.4 MG/DL (0.2-1.0) Aspartate Amino Transferase (AST) 20 U/L (15-37) Alanine Aminotransferase (ALT) 24 U/L (12-78) Alkaline Phosphatase 95 U/L (46-116) Troponin I 0.000 ng/mL (0.000-0.056) Total Protein 7.6 G/DL (6.4-8.2) Albumin 3.6 G/DL (3.4-5.0) Globulin 4.0 g/dL Albumin/Globulin Ratio 0.9 (1.0-2.7) L Lipase 105 U/L (73-393) EKG Diagnostic Results Rate: tachycardiac - atrial flutter 117 ST Segments: no acute changes Rhythm Strip Diag. Results EP Interpretation: yes Rhythm: no PVC's, no ectopy, other - atrial flutter Last Vital Signs Date Time Temp Pulse Resp B/P (MAP) Pulse Ox O2 Delivery O2 Flow Rate FiO2 12/18/18 07:35 98.1 50 20 133/69 (90) 96 Room Air Status: improved Disposition: ADMITTED INPATIENT Condition: Stable Celso Martin MD Dec 18, 2018 07:51
[2018-12-18] MEDS ORDERED: Dicyclomine HCl 10mg/5ml oral soln ORAL ONE (08:00)
[2018-12-18] MEDS ORDERED: Lidocaine 2% Visc 15ml soln ORAL ONE (08:00)
[2018-12-18] MEDS ORDERED: Isovue-300 100ml vial INJ PRN (08:00)
[2018-12-18] MEDS ORDERED: Mylanta II UD 30ml ORAL ONE (08:00)
[2018-12-18 08:20] VITALS: BP 161/78
--- NOTE | 2018-12-18 08:20 | NUR ---
ED Nurse Note: pt walked in due to mid abdominal pain started today, pt stated the pain started after taking yerbambuena tea and she has 3 BM today. pt discribes the pain as cramping with 8/10 on a pain scale. seen by ermhong, with orders made and carried out. blood drawn and was sent to lab, pt able to give urine specimen, pt medicated and tolerated well. pt's ekg appears Atrial flutter, ermd aware. will continue to monitor.
[2018-12-18] MEDS ORDERED: Metoprolol 5mg/5ml Inj IVP ONE (08:30)
[2018-12-18 08:36] LABS: APPEARANCE,URINE CLEAR; BILIRUBIN, URINE NEGATIVE (NEGATIVE); COLOR,URINE PALE YELLOW; GLUCOSE, URINE (UA) NEGATIVE (NEGATIVE); HEMATOCRIT 46.6 % (37.0-47.0); HEMOGLOBIN 15.1 G/DL (12.0-16.0); KETONES,URINE NEGATIVE (NEGATIVE); LEUKOCYTE ESTERASE ,URINE NEGATIVE (NEGATIVE); MEAN CORPUSCULAR VOLUME 84 FL (80-99); NITRITE,URINE NEGATIVE (NEGATIVE); PH,URINE 5 (4.5-8.0); PLATELET COUNT 257 K/UL (150-450); PROTEIN,URINE NEGATIVE (NEGATIVE); RED BLOOD COUNT 5.54 M/UL (4.20-5.40); UROBILINOGEN,URINE 1 MG/DL (0.0-1.0); WHITE BLOOD COUNT 20.3 K/UL (4.8-10.8)
[2018-12-18 08:45] LABS: ANION GAP 9 mmol/L (5-15); BLOOD UREA NITROGEN 15 mg/dL (7-18); CALCIUM 9.3 MG/DL (8.5-10.1); CARBON DIOXIDE 25 MMOL/L (21-32); CHLORIDE 107 MMOL/L (98-107); CREATININE 0.7 MG/DL (0.55-1.30); POTASSIUM 3.9 MMOL/L (3.5-5.1); SODIUM 141 MMOL/L (136-145)
[2018-12-18 08:50] LABS: ALANINE AMINOTRANSFERASE 24 U/L (12-78); ALBUMIN 3.6 G/DL (3.4-5.0); ALBUMIN/GLOBULIN RATIO 0.9 (1.0-2.7); ALKALINE PHOSPHATASE 95 U/L (46-116); ASPARTATE AMINO TRANSFERASE 20 U/L (15-37); BILIRUBIN,TOTAL 0.4 MG/DL (0.2-1.0)
--- NOTE | 2018-12-18 08:51 | NUR ---
ED Nurse Note: pt reassessed and stated that the pain went away after the gi cocktail. pain level now is 2/10. will continue to monitor.
--- NOTE | 2018-12-18 08:56 | NUR ---
ED Nurse Note: pt went to ct scan with tech, pt signed consent for ct with contrast.
--- NOTE | 2018-12-18 09:09 | NUR ---
ED Nurse Note: pt went back from ct with tech
--- NOTE | 2018-12-18 09:35 | Diagnostic Imaging Report ---
Indication: Abdominal pain Technique: Continuous helical transaxial imaging of the abdomen and pelvis was obtained from the lung bases to the pubic symphysis during intravenous contrast administration. Coronal 2-D reformats were also obtained. Study obtained in a Siemens sensation [address] Automatic Exposure Control was utilized. Total Dose length Product (DLP): 1426.[address] Dose Index Volume (CTDIvol): 26.25 mGy Comparison: None Findings: There is a pericolonic inflammation involving a portion of the descending colon associated with diverticula. Findings consistent with acute diverticulitis. There is no abscess. Trace free fluid noted the within the pelvis. Uterus is absent. Bladder is nondistended. Bowel gas pattern appears nonobstructive. Appendix is normal. The lung bases are clear. The liver may be slightly hypodense. The gallbladder is mildly distended. The pancreas, adrenal glands, kidneys and spleen appear unremarkable. Degenerative changes of the lower lumbar spine demonstrated. Some narrowing of intervertebral discs and hypertrophic facets noted at multiple levels. IMPRESSION: Acute diverticulitis involving the descending colon. No abscess. Small umbilical hernia containing fat. Mild fatty liver. Degenerative changes of the lumbar spine The CT scanner at [facility] is accredited by the [employer] and the scans are performed using dose optimization techniques as appropriate to a performed exam including Automatic Exposure control.
[2018-12-18] MEDS ORDERED: Piperacillin/Tazobactam 3.375 GM in NS 110 ML IVPB ONE (09:45)
[2018-12-18 10:49] VITALS: BP 143/49
[2018-12-18] MEDS ORDERED: Morphine Sulfate 2mg/ml Inj(IV/IM USE ONLY) IVP ONE (11:00)
--- NOTE | 2018-12-18 11:00 | NUR ---
ED Nurse Note: pt complained of abminal pain started on the left side 8/10 pain. ermd made aware and ordered morphine iv and given to pt. will continue to monitor.
--- NOTE | 2018-12-18 12:15 | NUR ---
ED Nurse Note: pt was admitted to the hospital. report given to laura becker.
--- NOTE | 2018-12-18 12:19 | General Progress Note ---
Assessment/Plan Problem List: (1) Diverticulitis ICD Codes: K57.92 - Diverticulitis of intestine, part unspecified, without perforation or abscess without bleeding SNOMED: 846803150 Assessment/Plan: iv abx clears stool studies needs colonoscopy in 8 weeks Subjective ROS Limited/Unobtainable: Yes Allergies: Coded Allergies: NO KNOWN ALLERGIES (Unverified Allergy, Unknown, 02/19/18) Objective Last 24 Hour Vital Signs Date Time Temp Pulse Resp B/P (MAP) Pulse Ox O2 Delivery O2 Flow Rate FiO2 12/18/18 10:49 114 17 143/49 96 Room Air 12/18/18 08:35 112 161/78 12/18/18 08:20 112 23 12/18/18 08:20 98.1 112 23 161/78 97 Room Air 12/18/18 07:35 98.1 50 20 133/69 (90) 96 Room Air Laboratory Tests 12/18/18 08:10: White Blood Count 20.3H, Red Blood Count 5.54H, Hemoglobin 15.1, Hematocrit 46.6 , Mean Corpuscular Volume 84, Mean Corpuscular Hemoglobin 27.2, Mean Corpuscular Hemoglobin Concent 32.4, Red Cell Distribution Width 14.0, Platelet Count 257, Mean Platelet Volume 7.9, Neutrophils (%) (Auto) , Lymphocytes (%) ( Auto) , Monocytes (%) (Auto) , Eosinophils (%) (Auto) , Basophils (%) (Auto) , Differential Total Cells Counted 100, Neutrophils % (Manual) 92H, Lymphocytes % (Manual) 2L, Monocytes % (Manual) 4, Eosinophils % (Manual) 2, Basophils % ( Manual) 0, Band Neutrophils 0, Platelet Estimate Adequate, Platelet Morphology Normal, Prothrombin Time 10.7, Prothromb Time International Ratio 1.0, Activated Partial Thromboplast Time 32, Urine Color Pale yellow, Urine Appearance Clear, Urine pH 5, Urine Specific [place] 1.015, Urine Protein Negative, Urine Glucose (UA) Negative, Urine Ketones Negative, Urine Blood 3+H, Urine Nitrite Negative, Urine Bilirubin Negative, Urine Urobilinogen 1H, Urine Leukocyte Esterase Negative, Urine RBC 2-4H, Urine WBC 0-2, Urine Squamous Epithelial Cells Few, Urine Bacteria Few, Sodium Level 141, Potassium Level 3.9 , Chloride Level 107, Carbon Dioxide Level 25, Anion Gap 9, Blood Urea Nitrogen 15, Creatinine 0.7, Estimat Glomerular Filtration Rate > 60, Glucose Level 119H , Calcium Level 9.3, Total Bilirubin 0.4, Aspartate Amino Transf (AST/SGOT) 20, Alanine Aminotransferase (ALT/SGPT) 24, Alkaline Phosphatase 95, Troponin I 0.000, Total Protein 7.6, Albumin 3.6, Globulin 4.0, Albumin/Globulin Ratio 0.9L , Lipase 105 Procedure: CT Abdomen Pelvis w/Contrast Indication: Abdominal pain Technique: Continuous helical transaxial imaging of the abdomen and pelvis was obtained from the lung bases to the pubic symphysis during intravenous contrast administration. Coronal 2-D reformats were also obtained. Study obtained in a Siemens sensation [address] Automatic Exposure Control was utilized. Total Dose length Product (DLP): 1426.[address] Dose Index Volume (CTDIvol): 26.25 mGy Comparison: None Findings: There is a pericolonic inflammation involving a portion of the descending colon associated with diverticula. Findings consistent with acute diverticulitis. There is no abscess. Trace free fluid noted the within the pelvis. Uterus is absent. Bladder is nondistended. Bowel gas pattern appears nonobstructive. Appendix is normal. The lung bases are clear. The liver may be slightly hypodense. The gallbladder is mildly distended. The pancreas, adrenal glands, kidneys and spleen appear unremarkable. Degenerative changes of the lower lumbar spine demonstrated. Some narrowing of intervertebral discs and hypertrophic facets noted at multiple levels. IMPRESSION: Acute diverticulitis involving the descending colon. No abscess. Small umbilical hernia containing fat. Mild fatty liver. Degenerative changes of the lumbar spine The CT scanner at [facility] is accredited by the [employer] and the scans are performed using dose optimization techniques as appropriate to a performed exam including Automatic Exposure control. Height (Feet): 5 Weight (Pounds): 220 General Appearance: alert EENT: normal ENT inspection Neck: supple Cardiovascular: normal rate Respiratory/Chest: lungs clear Abdomen: soft, hypoactive bowel sounds, tender Extremities: non-tender Thony Curiel MD Dec 18, 2018 12:19
--- NOTE | 2018-12-18 12:30 | NUR ---
NURSE NOTES: Patient is 58 year old newly admitted from ED to TELE Rm 209-1. Received report from Elizabeth GRIGSBY. Patient brought in via gurney. Patient complaint of pain 5/10, Medication given in ER for pain prior to admission to the TELE floor. Will notify MD. Patient weighed, all admission protocols followed and carried out. Patient's skin is intact, ambulates with cane. Home medication was sent home with brother in-law, Mr. Correa at bedside. Bed is in lowest position, call light within reach. Will continue to monitor.
--- NOTE | 2018-12-18 12:30 | NUR ---
ED Nurse Note: pt was trasnfered to floor, pt belongings endorsed to Angel GRIGSBY.
[2018-12-18 12:40] VITALS: BP 142/87
--- NOTE | 2018-12-18 14:29 | Cardiac Electrophysiology PN ---
Subjective Subjective [id number] Objective Last 24 Hour Vital Signs Date Time Temp Pulse Resp B/P (MAP) Pulse Ox O2 Delivery O2 Flow Rate FiO2 12/18/18 13:33 Room Air 12/18/18 12:48 Room Air 12/18/18 12:40 98.4 94 20 142/87 (105) 96 12/18/18 10:49 114 17 143/49 96 Room Air 12/18/18 08:35 112 161/78 12/18/18 08:20 112 23 12/18/18 08:20 98.1 112 23 161/78 97 Room Air 12/18/18 07:35 98.1 50 20 133/69 (90) 96 Room Air Laboratory Tests Test 12/18/18 08:10 White Blood Count 20.3 K/UL (4.8-10.8) H Red Blood Count 5.54 M/UL (4.20-5.40) H Hemoglobin 15.1 G/DL (12.0-16.0) Hematocrit 46.6 % (37.0-47.0) Mean Corpuscular Volume 84 FL (80-99) Mean Corpuscular Hemoglobin 27.2 PG (27.0-31.0) Mean Corpuscular Hemoglobin Concent 32.4 G/DL (32.0-36.0) Red Cell Distribution Width 14.0 % (11.6-14.8) Platelet Count 257 K/UL (150-450) Mean Platelet Volume 7.9 FL (6.5-10.1) Neutrophils (%) (Auto) % (45.0-75.0) Lymphocytes (%) (Auto) % (20.0-45.0) Monocytes (%) (Auto) % (1.0-10.0) Eosinophils (%) (Auto) % (0.0-3.0) Basophils (%) (Auto) % (0.0-2.0) Differential Total Cells Counted 100 Neutrophils % (Manual) 92 % (45-75) H Lymphocytes % (Manual) 2 % (20-45) L Monocytes % (Manual) 4 % (1-10) Eosinophils % (Manual) 2 % (0-3) Basophils % (Manual) 0 % (0-2) Band Neutrophils 0 % (0-8) Platelet Estimate Adequate Platelet Morphology Normal Prothrombin Time 10.7 SEC (9.30-11.50) Prothromb Time International Ratio 1.0 (0.9-1.1) Activated Partial Thromboplast Time 32 SEC (23-33) Urine Color Pale yellow Urine Appearance Clear Urine pH 5 (4.5-8.0) Urine Specific [place] 1.015 (1.005-1.035) Urine Protein Negative (NEGATIVE) Urine Glucose (UA) Negative (NEGATIVE) Urine Ketones Negative (NEGATIVE) Urine Blood 3+ (NEGATIVE) H Urine Nitrite Negative (NEGATIVE) Urine Bilirubin Negative (NEGATIVE) Urine Urobilinogen 1 MG/DL (0.0-1.0) H Urine Leukocyte Esterase Negative (NEGATIVE) Urine RBC 2-4 /HPF (0 - 2) H Urine WBC 0-2 /HPF (0 - 2) Urine Squamous Epithelial Cells Few /LPF (NONE/OCC) Urine Bacteria Few /HPF (NONE) Sodium Level 141 MMOL/L (136-145) Potassium Level 3.9 MMOL/L (3.5-5.1) Chloride Level 107 MMOL/L (98-107) Carbon Dioxide Level 25 MMOL/L (21-32) Anion Gap 9 mmol/L (5-15) Blood Urea Nitrogen 15 mg/dL (7-18) Creatinine 0.7 MG/DL (0.55-1.30) Estimat Glomerular Filtration Rate > 60 mL/min (>60) Glucose Level 119 MG/DL (74-106) H Calcium Level 9.3 MG/DL (8.5-10.1) Total Bilirubin 0.4 MG/DL (0.2-1.0) Aspartate Amino Transf (AST/SGOT) 20 U/L (15-37) Alanine Aminotransferase (ALT/SGPT) 24 U/L (12-78) Alkaline Phosphatase 95 U/L (46-116) Troponin I 0.000 ng/mL (0.000-0.056) Total Protein 7.6 G/DL (6.4-8.2) Albumin 3.6 G/DL (3.4-5.0) Globulin 4.0 g/dL Albumin/Globulin Ratio 0.9 (1.0-2.7) L Lipase 105 U/L (73-393) Shawn Gonzalez MD Dec 18, 2018 14:29
[2018-12-18] MEDS: Piperacillin/Tazobactam 3.375 GM in NS 110 ML IVPB SCH ×2 (15:34→22:07)
[2018-12-18 16:00] VITALS: BP 149/55
--- NOTE | 2018-12-18 16:00 | NUR ---
NURSE NOTES: Dr. Gonzalez is aware that patient is having a flutter. No new order.
[2018-12-18] MEDS: Eliquis 5mg tablet ORAL SCH (17:34)
--- NOTE | 2018-12-18 18:49 | NUR ---
NURSE NOTES: Patient's HR has been flunctuating from 120's to 150's. Dr. Gonzalez aware. Pt complain of pain 01/22, notified Pawan FOREMAN, awaiting call back.
--- NOTE | 2018-12-18 19:15 | NUR ---
NURSE NOTES: Report received from Ishmael Kevin RN. Pt is resting in bed in stable condition. Pt is AOx4, on room air. Breathing is even and unlabored. No acute distress noted. IV site is R hand #20g and is asymptomatic, patent, and intact. Bed is placed in lowest position with brake engaged, side rails up x3, and bed alarm on. Call light and side table placed within reach. Family is at bedside.
--- NOTE | 2018-12-18 19:26 | NUR ---
HAND-OFF: Report given to Sarah Beth GRIGSBY.Endorsed plan of care.
[2018-12-18] MEDS: Morphine Sulfate 2mg/ml Inj(IV/IM USE ONLY) IVP PRN (19:53)
[2018-12-18 20:00] VITALS: BP 140/63
[2018-12-18 21:30] VITALS: BP 140/63
[2018-12-18] MEDS: Carvedilol 12.5mg tab ORAL SCH (21:32)
[2018-12-19] VITALS (8 sets, daily range): BP systolic 98–124; BP diastolic 48–73
--- NOTE | 2018-12-19 01:00 | Consultation ---
DATE OF CONSULTATION: 12/18/2018 CARDIAC ELECTROPHYSIOLOGY CONSULTATION REASON FOR CONSULTATION: Atrial flutter with rapid ventricular response and congestive heart failure. HISTORY OF PRESENT ILLNESS: The patient is a 58-year-old lady with history of hypertension and atrial flutter that was diagnosed in July of 2018 while she was at [facility] as well as history of congestive heart failure with EF of 30% to 35% who presented to the emergency room with abdominal pain. The patient underwent a CT of abdomen and pelvis with contrast that showed acute diverticulitis involving the descending colon without any abscess. A cardiac electrophysiology consultation in view of the patient's recurrent atrial flutter. REVIEW OF SYSTEMS: Review of systems was negative other than what is mentioned in the history of present illness. PAST MEDICAL HISTORY: 1. Hypertension. 2. Cardiomyopathy with EF of 30%. 3. Atrial flutter with rapid ventricular response in July for which she was on digoxin, metoprolol, and Eliquis. 4. COPD and smoking history. 5. Morbid obesity. PHYSICAL EXAMINATION: VITAL SIGNS: Show blood pressure of 142/87, pulse is 110, respirations 18, and temperature 98.4. HEAD AND NECK: Showed no jugular venous distention. LUNGS: Clear. CARDIOVASCULAR: Shows irregular and tachycardic. S1, S2 with no gallop. ABDOMEN: Distended and tender. EXTREMITIES: No pitting edema. LABORATORY DATA: Labs show white count of 20,000, hemoglobin of 15, hematocrit of 46, and platelet count is 257. Sodium 141, potassium 3.9, BUN of 15, creatinine 0.7, and glucose of 119. Troponin is negative. Her INR is 1. A 12-lead EKG showed atrial flutter with right bundle-branch block with rapid ventricular response and heart rate 117. ASSESSMENT AND PLAN: 1. Atrial flutter with rapid ventricular response. I discussed the case with Dr. Curiel who okayed resuming the patient's p.o. medications including Eliquis 5 mg b.i.d. as well as digoxin 0.25 mg daily and metoprolol 100 mg b.i.d. for better rate control. 2. Severe cardiomyopathy with EF of around 30%. We will repeat the echocardiogram. In the meantime, keep the patient on Aldactone 25 mg daily, metoprolol, digoxin, and Lasix. 3. Abdominal pain and diverticulitis. Further evaluation by Dr. Curiel. Currently nonsurgical. The patient was started on clear liquid diet. 4. Obesity. 5. COPD. Thank you very much for allowing me to participate in the care of this patient. Please do not hesitate to contact me for any questions regarding my evaluation. Shawn Gonzalez M.D. DR: NADJA JOB#: [id number] CC:
--- NOTE | 2018-12-19 01:08 | NUR ---
NURSE NOTES: Pt BP checked and noted to be 99/59 on L arm and 98/55 on R arm. HR is 107, aflutter, on the monitor. Pt is resting in bed, asleep, in stable condition. Pt awakens easily to name and light touch. Pt AOx4, on room air and breathing is even and unlabored. No acute distress noted. Pt denies dizziness, lightheadedness, or syncopal episode. Pt advised to call prior to attempting to get out of bed. Fall precautions in place. Pt verbalized understanding. Ishmael CHIANG, made aware of situation. Will continue to monitor.
--- NOTE | 2018-12-19 01:57 | NUR ---
NURSE NOTES: Pt assisted to bedside commode without incidence. Pt denies dizziness/lightheadedness with position change. Pt BP rechecked after being assisted back to bed and BP noted to be 102/48 on the L arm, HR: 98. Pt AOx4, on room air. No acute distress noted. Will continue to monitor.
--- NOTE | 2018-12-19 03:45 | History and Physical Report ---
DATE OF ADMISSION: 12/18/2018 HISTORY OF PRESENT ILLNESS: The patient is admitted for diverticulitis and abdominal pain for past two days. Left upper abdominal tenderness. CT showed acute diverticulitis, CT showed block. The patient denies nausea, vomiting, or diarrhea. No fever or chills. No shortness of breath. Denies cough. Denies orthopnea. PAST MEDICAL HISTORY: Significant for morbid obesity, gastritis, history of ingrown left great toenail, history of hypertension, snoring, CHF as well as arrhythmia, and GERD. PAST SURGICAL HISTORY: Hysterectomy. ALLERGIES: No known allergies. MEDICATIONS: Digoxin, aspirin, lisinopril, Lasix, potassium, , Protonix. FAMILY HISTORY: Noncontributory. SOCIAL HISTORY: Denies smoking, alcohol, or illicit drugs. REVIEW OF SYSTEMS: HEENT: Denies headaches today. RESPIRATORY: Denies shortness of breath. Denies cough. CARDIOVASCULAR: Denies chest pain. Denies orthopnea. GASTROINTESTINAL: Reports abdominal pain for x1 day and denies nausea, vomiting, or constipation. EXTREMITIES: Denies pain in lower extremities. NEUROLOGIC: Denies change in speech pattern. PHYSICAL EXAMINATION: VITAL SIGNS: Temperature is 98.4, pulse is 114, blood pressure 143/49. HEENT: PERRLA. NECK: Supple. CHEST: Clear to auscultation. CARDIOVASCULAR: Irregularly irregular. GASTROINTESTINAL: Distended. Does have a diffuse tenderness. However, the patient's abdomen is soft. EXTREMITIES: The patient does have 1+ edema. She is morbidly obese. NEUROLOGIC: Reflexes on both sides. Moves all four extremities. LABORATORY DATA: WBC of 20.3, hemoglobin of 15, and platelets of 253. Sodium 141, potassium 3.9, glucose of 119, BUN of 15, creatinine 0.7. ASSESSMENT AND PLAN: 1. Acute diverticulitis. 2. Leukocytosis, most likely due to acute diverticulitis. 3. The patient does have a history of arrhythmia. I have asked Dr. Patterson, Dr. Curiel, Dr. Lv Martell, Dr. Gonzalez to see the patient for the pain management as well as for antibiotics as well as for the management of diverticulitis and arrhythmia. Alejo Johnson M.D. DR: COLEMAN JOB#: [id number] CC:
[2018-12-19] MEDS: Piperacillin/Tazobactam 3.375 GM in NS 110 ML IVPB SCH ×3 (05:40→23:12)
[2018-12-19 06:48] LABS: BASOPHILS % (AUTO) 0.7 % (0.0-2.0); HEMOGLOBIN 13.3 G/DL (12.0-16.0); LYMPHOCYTES % (AUTO) 15.5 % (20.0-45.0); MEAN CORPUSCULAR VOLUME 85 FL (80-99); MONOCYTES % (AUTO) 8.4 % (1.0-10.0); NEUTROPHILS % (AUTO) 74.4 % (45.0-75.0); PLATELET COUNT 214 K/UL (150-450); RED BLOOD COUNT 4.83 M/UL (4.20-5.40); RED CELL DISTRIBUTION WIDTH 14.1 % (11.6-14.8); WHITE BLOOD COUNT 10.2 K/UL (4.8-10.8)
[2018-12-19 07:08] LABS: ALANINE AMINOTRANSFERASE 21 U/L (12-78); ALBUMIN/GLOBULIN RATIO 0.8 (1.0-2.7); ALKALINE PHOSPHATASE 81 U/L (46-116); ANION GAP 9 mmol/L (5-15); ASPARTATE AMINO TRANSFERASE 13 U/L (15-37); BILIRUBIN,TOTAL 0.7 MG/DL (0.2-1.0); BLOOD UREA NITROGEN 12 mg/dL (7-18); CARBON DIOXIDE 27 MMOL/L (21-32); CHLORIDE 106 MMOL/L (98-107); CREATININE 0.8 MG/DL (0.55-1.30); POTASSIUM 3.8 MMOL/L (3.5-5.1); SODIUM 141 MMOL/L (136-145)
--- NOTE | 2018-12-19 07:21 | Cardiology Progress Note ---
Assessment/Plan Status: stable Assessment/Plan ASSESSMENT AND PLAN: 1. Atrial flutter with rapid ventricular response. Anticoagulation not needed for atrial flutter Patient currently on Eliquis 5 mg BID - recommend outpatient ziopatch to evaluate for AFIB Continue rate control with metoprolol and digoxin 2. Severe cardiomyopathy with EF of around 30%. Continue aldactone, metoprolol. May need ICD in 3 months if patient does not improve LVEF 3. Abdominal pain and diverticulitis. Further evaluation by Dr. Curiel. Currently nonsurgical. Advance diet as tolerated 4. Obesity. - discussed weight loss/nutrition consult 5. COPD. - stable Subjective Cardiovascular: Reports: no symptoms Respiratory: Reports: no symptoms Gastrointestinal/Abdominal: Reports: abdominal pain Genitourinary: Reports: no symptoms Subjective [employer] [place] Heart rate under control, troponin negative, BP stable, no acute events. Objective Last 24 Hour Vital Signs Date Time Temp Pulse Resp B/P (MAP) Pulse Ox O2 Delivery O2 Flow Rate FiO2 12/19/18 04:00 87 12/19/18 04:00 98.0 82 18 110/62 (78) 95 12/19/18 01:55 98 18 102/48 (66) 12/19/18 00:51 107 16 98/59 (72) 12/19/18 00:00 98.1 107 16 99/55 (70) 94 12/19/18 00:00 112 12/18/18 21:32 121 140/63 12/18/18 21:30 97.9 121 18 140/63 (88) 95 12/18/18 21:00 Room Air 12/18/18 20:00 119 12/18/18 20:00 97.9 121 18 140/63 (88) 95 12/18/18 16:00 117 12/18/18 16:00 98.4 117 20 149/55 (86) 94 12/18/18 13:33 Room Air 12/18/18 12:48 Room Air 12/18/18 12:40 98.4 94 20 142/87 (105) 96 12/18/18 12:30 98.4 114 17 143/49 96 Room Air 12/18/18 11:36 98.4 12/18/18 10:49 114 17 143/49 96 Room Air 12/18/18 08:35 112 161/78 12/18/18 08:20 112 23 12/18/18 08:20 98.1 112 23 161/78 97 Room Air 12/18/18 07:35 98.1 50 20 133/69 (90) 96 Room Air General Appearance: no apparent distress, alert EENT: PERRL/EOMI, normal ENT inspection, TMs normal, pharynx normal Neck: non-tender, normal alignment, supple, normal inspection, no JVD Rhythm: NSR Cardiovascular: normal peripheral pulses, normal rate, arrhythmia Respiratory/Chest: chest wall non-tender, lungs clear Abdomen: normal bowel sounds, non tender, soft Extremities: normal range of motion, non-tender, normal inspection, no calf tenderness 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: 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 normal, no motor/sensory deficits Intake and Output 12/18/18 12/19/18 19:00 07:00 Intake Total 110 ml 120 ml Output Total 350 ml Balance 110 ml -230 ml Intake Oral 120 ml IV Total 110 ml Output Urine Total 350 ml # Voids 2 3 # Bowel Movements 2 Laboratory Tests Test 12/18/18 08:10 12/19/18 05:45 White Blood Count 20.3 K/UL (4.8-10.8) H 10.2 K/UL (4.8-10.8) Red Blood Count 5.54 M/UL (4.20-5.40) H 4.83 M/UL (4.20-5.40) Hemoglobin 15.1 G/DL (12.0-16.0) 13.3 G/DL (12.0-16.0) Hematocrit 46.6 % (37.0-47.0) 41.0 % (37.0-47.0) Mean Corpuscular Volume 84 FL (80-99) 85 FL (80-99) Mean Corpuscular Hemoglobin 27.2 PG (27.0-31.0) 27.5 PG (27.0-31.0) Mean Corpuscular Hemoglobin Concent 32.4 G/DL (32.0-36.0) 32.4 G/DL (32.0-36.0) Red Cell Distribution Width 14.0 % (11.6-14.8) 14.1 % (11.6-14.8) Platelet Count 257 K/UL (150-450) 214 K/UL (150-450) Mean Platelet Volume 7.9 FL (6.5-10.1) 8.1 FL (6.5-10.1) Neutrophils (%) (Auto) % (45.0-75.0) 74.4 % (45.0-75.0) Lymphocytes (%) (Auto) % (20.0-45.0) 15.5 % (20.0-45.0) L Monocytes (%) (Auto) % (1.0-10.0) 8.4 % (1.0-10.0) Eosinophils (%) (Auto) % (0.0-3.0) 1.0 % (0.0-3.0) Basophils (%) (Auto) % (0.0-2.0) 0.7 % (0.0-2.0) Differential Total Cells Counted 100 Neutrophils % (Manual) 92 % (45-75) H Lymphocytes % (Manual) 2 % (20-45) L Monocytes % (Manual) 4 % (1-10) Eosinophils % (Manual) 2 % (0-3) Basophils % (Manual) 0 % (0-2) Band Neutrophils 0 % (0-8) Platelet Estimate Adequate Platelet Morphology Normal Prothrombin Time 10.7 SEC (9.30-11.50) Prothromb Time International Ratio 1.0 (0.9-1.1) Activated Partial Thromboplast Time 32 SEC (23-33) Urine Color Pale yellow Urine Appearance Clear Urine pH 5 (4.5-8.0) Urine Specific [place] 1.015 (1.005-1.035) Urine Protein Negative (NEGATIVE) Urine Glucose (UA) Negative (NEGATIVE) Urine Ketones Negative (NEGATIVE) Urine Blood 3+ (NEGATIVE) H Urine Nitrite Negative (NEGATIVE) Urine Bilirubin Negative (NEGATIVE) Urine Urobilinogen 1 MG/DL (0.0-1.0) H Urine Leukocyte Esterase Negative (NEGATIVE) Urine RBC 2-4 /HPF (0 - 2) H Urine WBC 0-2 /HPF (0 - 2) Urine Squamous Epithelial Cells Few /LPF (NONE/OCC) Urine Bacteria Few /HPF (NONE) Sodium Level 141 MMOL/L (136-145) 141 MMOL/L (136-145) Potassium Level 3.9 MMOL/L (3.5-5.1) 3.8 MMOL/L (3.5-5.1) Chloride Level 107 MMOL/L (98-107) 106 MMOL/L (98-107) Carbon Dioxide Level 25 MMOL/L (21-32) 27 MMOL/L (21-32) Anion Gap 9 mmol/L (5-15) 9 mmol/L (5-15) Blood Urea Nitrogen 15 mg/dL (7-18) 12 mg/dL (7-18) Creatinine 0.7 MG/DL (0.55-1.30) 0.8 MG/DL (0.55-1.30) Estimat Glomerular Filtration Rate > 60 mL/min (>60) > 60 mL/min (>60) Glucose Level 119 MG/DL (74-106) H 111 MG/DL (74-106) H Calcium Level 9.3 MG/DL (8.5-10.1) 9.0 MG/DL (8.5-10.1) Total Bilirubin 0.4 MG/DL (0.2-1.0) 0.7 MG/DL (0.2-1.0) Aspartate Amino Transf (AST/SGOT) 20 U/L (15-37) 13 U/L (15-37) L Alanine Aminotransferase (ALT/SGPT) 24 U/L (12-78) 21 U/L (12-78) Alkaline Phosphatase 95 U/L (46-116) 81 U/L (46-116) Troponin I 0.000 ng/mL (0.000-0.056) Total Protein 7.6 G/DL (6.4-8.2) 7.0 G/DL (6.4-8.2) Albumin 3.6 G/DL (3.4-5.0) 3.0 G/DL (3.4-5.0) L Globulin 4.0 g/dL 4.0 g/dL Albumin/Globulin Ratio 0.9 (1.0-2.7) L 0.8 (1.0-2.7) L Lipase 105 U/L (73-393) Yo Charlton MD Dec 19, 2018 07:21
--- NOTE | 2018-12-19 07:30 | NUR ---
HAND-OFF: Report given to Jez Bush RN. Pt is resting in bed in stable condition. No acute distress noted. Endorsed plan of care.
--- NOTE | 2018-12-19 08:49 | Consultation ---
History of Present Illness General Date patient seen: Dec 19, 2018 Time patient seen: 07:45 - am Chief Complaint: Abdominal pain Referring physician: Alex Reason for Consultation: Pain management Present Illness HPI Patient is a 58-year-old female complaining of severe abdominal pain. Patient reports of increased left-sided abdominal pain which she describes as crampy in nature. She reports having onset earlier this evening after drinking some herbal tea. She denies any bloody stools. She reports the pain is a 10/10 and cramping to the left lower abdomen. Allergies: Coded Allergies: NO KNOWN ALLERGIES (Unverified Allergy, Unknown, 02/19/18) Medication History Scheduled Apixaban (Eliquis), 5 MG PO TWICE A DAY, (Reported) Aspirin* (Aspir 81*), 81 MG ORAL DAILY, (Reported) Cephalexin* (Keflex*), 500 MG ORAL EVERY 12 HOURS Cyclobenzaprine Hcl* (Flexeril*), 10 MG ORAL THREE TIMES A DAY Diclofenac Sod* (Voltaren*), 75 MG ORAL BID, (Reported) Digoxin* (Digoxin*), 0.25 MG ORAL DAILY, (Reported) Furosemide* (Lasix*), 40 MG ORAL DAILY, (Reported) Lisinopril (Lisinopril*), 10 MG ORAL DAILY, (Reported) Losartan Potassium* (Losartan Potassium*), 50 MG ORAL DAILY, (Reported) Metoprolol Succinate* (Metoprolol Succinate*), 100 MG ORAL DAILY, (Reported) Metoprolol Succinate* (Metoprolol Succinate*), 100 MG ORAL EVERY 12 HOURS, ( Reported) No Known Medications* (NKM - No Known Medications*), 0 ., (Reported) Omeprazole (Omeprazole), 20 MG ORAL DAILY, (Reported) Pantoprazole (Pantoprazole), 40 MG ORAL DAILY, (Reported) Potassium Chloride* (K-Dur*), 40 MEQ ORAL DAILY, (Reported) Ranitidine Hcl* (Zantac*), 150 MG ORAL TWICE A DAY Spironolactone* (Aldactone*), 25 MG ORAL DAILY, (Reported) Scheduled PRN Acetaminophen With Codeine (T#3) (Tylenol #3 Tab*), 1 TAB ORAL Q8H PRN for For Pain Cyclobenzaprine Hcl* (Flexeril*), 10 MG ORAL TID PRN for Muscle Spasm Ibuprofen* (Motrin*), 600 MG ORAL Q8H PRN for For Pain Ibuprofen* (Motrin*), 600 MG ORAL Q8H PRN for For Pain Ibuprofen* (Motrin*), 600 MG ORAL Q6H PRN for For Pain Ibuprofen* (Motrin*), 600 MG ORAL Q8H PRN for For Pain Tramadol Hcl* (Ultram*), 50 MG ORAL Q6H PRN for For Pain Patient History Healthcare decision maker Resuscitation status Advanced Directive on File Past Medical/Surgical History Past Medical/Surgical History: (1) Gastritis (2) Atrial flutter (3) Diverticulitis (4) CHF (congestive heart failure) (5) Morbid obesity (6) HTN (hypertension) Review of Systems Constitutional: Reports: no symptoms Eye: Reports: no symptoms ENT: Reports: no symptoms Respiratory: Reports: no symptoms Cardiovascular: Reports: no symptoms Gastrointestinal: Reports: abdominal pain Genitourinary: Reports: no symptoms Musculoskeletal: Reports: no symptoms Skin: Reports: no symptoms Psychiatric: Reports: no symptoms Neurological: Reports: no symptoms Endocrine: Reports: no symptoms Hematologic/Lymphatic: Reports: no symptoms Physical Exam General Appearance: no apparent distress, alert Neck: non-tender, normal alignment Respiratory/Chest: decreased breath sounds Abdomen: tender Extremities: non-tender Neurologic: alert, oriented x 3 Last 24 Hour Vital Signs Date Time Temp Pulse Resp B/P (MAP) Pulse Ox O2 Delivery O2 Flow Rate FiO2 12/19/18 08:04 98.2 83 20 107/61 (76) 96 12/19/18 04:00 87 12/19/18 04:00 98.0 82 18 110/62 (78) 95 12/19/18 01:55 98 18 102/48 (66) 12/19/18 00:51 107 16 98/59 (72) 12/19/18 00:00 98.1 107 16 99/55 (70) 94 12/19/18 00:00 112 12/18/18 21:32 121 140/63 12/18/18 21:30 97.9 121 18 140/63 (88) 95 12/18/18 21:00 Room Air 12/18/18 20:00 119 12/18/18 20:00 97.9 121 18 140/63 (88) 95 12/18/18 16:00 117 12/18/18 16:00 98.4 117 20 149/55 (86) 94 12/18/18 13:33 Room Air 12/18/18 12:48 Room Air 12/18/18 12:40 98.4 94 20 142/87 (105) 96 12/18/18 12:30 98.4 114 17 143/49 96 Room Air 12/18/18 11:36 98.4 12/18/18 10:49 114 17 143/49 96 Room Air Intake and Output 12/18/18 12/19/18 19:00 07:00 Intake Total 110 ml 120 ml Output Total 350 ml Balance 110 ml -230 ml Intake Oral 120 ml IV Total 110 ml Output Urine Total 350 ml # Voids 2 3 # Bowel Movements 2 Laboratory Tests Test 12/19/18 05:45 White Blood Count 10.2 K/UL (4.8-10.8) Red Blood Count 4.83 M/UL (4.20-5.40) Hemoglobin 13.3 G/DL (12.0-16.0) Hematocrit 41.0 % (37.0-47.0) Mean Corpuscular Volume 85 FL (80-99) Mean Corpuscular Hemoglobin 27.5 PG (27.0-31.0) Mean Corpuscular Hemoglobin Concent 32.4 G/DL (32.0-36.0) Red Cell Distribution Width 14.1 % (11.6-14.8) Platelet Count 214 K/UL (150-450) Mean Platelet Volume 8.1 FL (6.5-10.1) Neutrophils (%) (Auto) 74.4 % (45.0-75.0) Lymphocytes (%) (Auto) 15.5 % (20.0-45.0) L Monocytes (%) (Auto) 8.4 % (1.0-10.0) Eosinophils (%) (Auto) 1.0 % (0.0-3.0) Basophils (%) (Auto) 0.7 % (0.0-2.0) Sodium Level 141 MMOL/L (136-145) Potassium Level 3.8 MMOL/L (3.5-5.1) Chloride Level 106 MMOL/L (98-107) Carbon Dioxide Level 27 MMOL/L (21-32) Anion Gap 9 mmol/L (5-15) Blood Urea Nitrogen 12 mg/dL (7-18) Creatinine 0.8 MG/DL (0.55-1.30) Estimat Glomerular Filtration Rate > 60 mL/min (>60) Glucose Level 111 MG/DL (74-106) H Calcium Level 9.0 MG/DL (8.5-10.1) Total Bilirubin 0.7 MG/DL (0.2-1.0) Aspartate Amino Transf (AST/SGOT) 13 U/L (15-37) L Alanine Aminotransferase (ALT/SGPT) 21 U/L (12-78) Alkaline Phosphatase 81 U/L (46-116) Total Protein 7.0 G/DL (6.4-8.2) Albumin 3.0 G/DL (3.4-5.0) L Globulin 4.0 g/dL Albumin/Globulin Ratio 0.8 (1.0-2.7) L Height (Feet): 5 Height (Inches): 0.00 Weight (Pounds): 229 Medications Current Medications Medications (Trade) Dose Ordered Sig/Kaleb Route PRN Reason Start Time Stop Time Status Last Admin Dose Admin Apixaban (Eliquis) 5 mg BID ORAL 12/18/18 18:00 01/17/19 17:59 12/18/18 17:34 Carvedilol (Coreg) 12.5 mg EVERY 12 HOURS ORAL 12/18/18 21:00 01/17/19 20:59 12/18/18 21:32 Digoxin (Lanoxin) 0.25 mg DAILY ORAL 12/19/18 09:00 01/18/19 08:59 Iopamidol (Isovue-300 100ml) 100 ml NOW PRN INJ Radiology Procedure 12/18/18 08:00 Lisinopril (Zestril) 10 mg DAILY ORAL 12/19/18 09:00 01/18/19 08:59 Morphine Sulfate (Morphine Sulfate) 2 mg Q4H PRN IVP Severe Pain (Pain Scale 7-10) 12/18/18 19:15 12/25/18 19:14 12/18/18 19:53 Ondansetron HCl (Zofran) 4 mg Q6H PRN IVP Nausea & Vomiting 12/18/18 14:15 01/17/19 14:14 12/18/18 21:32 Piperacillin Sod/ Tazobactam Sod 3.375 gm/Sodium Chloride 110 ml @ 27.5 mls/hr EVERY 8 HOURS IVPB 12/18/18 14:00 12/23/18 13:59 12/19/18 05:40 Spironolactone (Aldactone) 25 mg DAILY ORAL 12/19/18 09:00 01/18/19 08:59 Assessment/Plan Assessment/Plan: (1) Abdominal pain (2) Diverticulitis (3) Morbid obesity Started on Morphine 2mg IV Q4H PRN severe pain D/w Dr. Patterson and he concurred. Pawan Peter Dec 19, 2018 08:49
[2018-12-19] MEDS: Eliquis 5mg tablet ORAL SCH ×2 (09:09→16:57)
[2018-12-19] MEDS: Spironolactone 25mg tab ORAL SCH (09:09)
[2018-12-19] MEDS: Lisinopril 10mg tab ORAL SCH (09:09)
[2018-12-19] MEDS: Carvedilol 12.5mg tab ORAL SCH ×2 (09:09→21:05)
--- NOTE | 2018-12-19 09:43 | GI Progress Note ---
Assessment/Plan Problems: (1) Diverticulitis ICD Codes: K57.92 - Diverticulitis of intestine, part unspecified, without perforation or abscess without bleeding SNOMED: 741047916 (2) Obesity ICD Codes: E66.9 - Obesity, unspecified SNOMED: 696972125, 374507080 Status: stable Status Narrative Discussed with Dr. Curiel Assessment/Plan Medical management for diverticulitis Clear liquid diet, advance as tolerated IV hydration Pain management Zofran as needed PPI abx Patient needs follow-up colonoscopy approximately 2 months after discharge The patient was seen and examined at bedside and all new and available data was reviewed in the patients chart. I agree with the above findings, impression and plan. (Patient seen earlier today. Signature stamp does not reflect patient encounter time.). - Thony Curiel MD Subjective Subjective Continues to complain of abdominal pain, however has improved Abdomen is now nontender Objective Last 24 Hour Vital Signs Date Time Temp Pulse Resp B/P (MAP) Pulse Ox O2 Delivery O2 Flow Rate FiO2 12/19/18 09:09 107/61 12/19/18 09:09 83 107/61 12/19/18 09:08 83 12/19/18 08:04 98.2 83 20 107/61 (76) 96 12/19/18 04:00 87 12/19/18 04:00 98.0 82 18 110/62 (78) 95 12/19/18 01:55 98 18 102/48 (66) 12/19/18 00:51 107 16 98/59 (72) 12/19/18 00:00 98.1 107 16 99/55 (70) 94 12/19/18 00:00 112 12/18/18 21:32 121 140/63 12/18/18 21:30 97.9 121 18 140/63 (88) 95 12/18/18 21:00 Room Air 12/18/18 20:00 119 12/18/18 20:00 97.9 121 18 140/63 (88) 95 12/18/18 16:00 117 12/18/18 16:00 98.4 117 20 149/55 (86) 94 12/18/18 13:33 Room Air 12/18/18 12:48 Room Air 12/18/18 12:40 98.4 94 20 142/87 (105) 96 12/18/18 12:30 98.4 114 17 143/49 96 Room Air 12/18/18 11:36 98.4 12/18/18 10:49 114 17 143/49 96 Room Air Intake and Output 12/18/18 12/19/18 19:00 07:00 Intake Total 110 ml 120 ml Output Total 350 ml Balance 110 ml -230 ml Intake Oral 120 ml IV Total 110 ml Output Urine Total 350 ml # Voids 2 3 # Bowel Movements 2 Laboratory Tests Test 12/19/18 05:45 White Blood Count 10.2 K/UL (4.8-10.8) Red Blood Count 4.83 M/UL (4.20-5.40) Hemoglobin 13.3 G/DL (12.0-16.0) Hematocrit 41.0 % (37.0-47.0) Mean Corpuscular Volume 85 FL (80-99) Mean Corpuscular Hemoglobin 27.5 PG (27.0-31.0) Mean Corpuscular Hemoglobin Concent 32.4 G/DL (32.0-36.0) Red Cell Distribution Width 14.1 % (11.6-14.8) Platelet Count 214 K/UL (150-450) Mean Platelet Volume 8.1 FL (6.5-10.1) Neutrophils (%) (Auto) 74.4 % (45.0-75.0) Lymphocytes (%) (Auto) 15.5 % (20.0-45.0) L Monocytes (%) (Auto) 8.4 % (1.0-10.0) Eosinophils (%) (Auto) 1.0 % (0.0-3.0) Basophils (%) (Auto) 0.7 % (0.0-2.0) Sodium Level 141 MMOL/L (136-145) Potassium Level 3.8 MMOL/L (3.5-5.1) Chloride Level 106 MMOL/L (98-107) Carbon Dioxide Level 27 MMOL/L (21-32) Anion Gap 9 mmol/L (5-15) Blood Urea Nitrogen 12 mg/dL (7-18) Creatinine 0.8 MG/DL (0.55-1.30) Estimat Glomerular Filtration Rate > 60 mL/min (>60) Glucose Level 111 MG/DL (74-106) H Calcium Level 9.0 MG/DL (8.5-10.1) Total Bilirubin 0.7 MG/DL (0.2-1.0) Aspartate Amino Transf (AST/SGOT) 13 U/L (15-37) L Alanine Aminotransferase (ALT/SGPT) 21 U/L (12-78) Alkaline Phosphatase 81 U/L (46-116) Total Protein 7.0 G/DL (6.4-8.2) Albumin 3.0 G/DL (3.4-5.0) L Globulin 4.0 g/dL Albumin/Globulin Ratio 0.8 (1.0-2.7) L Height (Feet): 5 Height (Inches): 0.00 Weight (Pounds): 229 General Appearance: WD/WN, no apparent distress, alert, morbidly obese Cardiovascular: normal rate Respiratory/Chest: normal breath sounds, no respiratory distress Abdominal Exam: normal bowel sounds, non tender, soft Extremities: normal range of motion, non-tender Patrick Oliveira NP Dec 19, 2018 09:43
[2018-12-19] MEDS: Morphine Sulfate 2mg/ml Inj(IV/IM USE ONLY) IVP PRN ×3 (10:46→23:13)
--- NOTE | 2018-12-19 14:11 | NUR ---
CASE MANAGEMENT:REVIEW 58 YR OLD FEMALE PRESENTED TO ER CC: ABDOMINAL PAIN SI:CHF. DIVERTICULITIS(CONFIRMED BY IMAGINING) 98.0 112 20 161/78 96% ON RA WBC+20.3 IS: GI COCKTAIL IV METOPROLOL IV ZOSYN CT ABD/PELVIS : TO TELEMETRY UNIT
--- NOTE | 2018-12-19 19:30 | NUR ---
NURSE NOTES: Report received from Jez Bush RN. Pt is resting in bed in stable condition. Pt is AOx4, on room air and breathing is even and unlabored. No acute distress noted. IV site is R hand #20g and is asymptomatic, patent, and intact. Fall precautions noted to be in place. Bed is placed in lowest position with brake engaged, side rails up x3, and bed alarm on. Cane and bedside commode are in place at bedside. Call light and side table placed within reach. Will continue to monitor.
--- NOTE | 2018-12-19 21:29 | General Progress Note ---
Assessment/Plan Problem List: (1) Morbid obesity ICD Codes: E66.01 - Morbid (severe) obesity due to excess calories SNOMED: 987516273 (2) HTN (hypertension) ICD Codes: I10 - Essential (primary) hypertension SNOMED: 89004025 (3) Diverticulitis ICD Codes: K57.92 - Diverticulitis of intestine, part unspecified, without perforation or abscess without bleeding SNOMED: 113360092 (4) CHF (congestive heart failure) ICD Codes: I50.9 - Heart failure, unspecified SNOMED: 37191176 Status: stable, progressing Assessment/Plan: diverticulitis is improving abdominal pain is improving htn reviewed chart and labs Subjective ROS Limited/Unobtainable: Yes Allergies: Coded Allergies: NO KNOWN ALLERGIES (Unverified Allergy, Unknown, 02/19/18) Objective Last 24 Hour Vital Signs Date Time Temp Pulse Resp B/P (MAP) Pulse Ox O2 Delivery O2 Flow Rate FiO2 12/19/18 21:05 78 124/73 12/19/18 20:00 99.0 78 18 124/73 (90) 96 12/19/18 17:27 98.1 12/19/18 16:00 100 12/19/18 16:00 98.2 63 20 101/57 (72) 98 12/19/18 12:00 74 12/19/18 12:00 98.1 72 20 109/55 (73) 95 12/19/18 10:22 Room Air 12/19/18 09:09 107/61 12/19/18 09:09 83 107/61 12/19/18 09:08 83 12/19/18 08:04 98.2 83 20 107/61 (76) 96 12/19/18 08:00 91 12/19/18 04:00 87 12/19/18 04:00 98.0 82 18 110/62 (78) 95 12/19/18 01:55 98 18 102/48 (66) 12/19/18 00:51 107 16 98/59 (72) 12/19/18 00:00 98.1 107 16 99/55 (70) 94 12/19/18 00:00 112 12/18/18 21:32 121 140/63 12/18/18 21:30 97.9 121 18 140/63 (88) 95 Intake and Output 12/18/18 12/19/18 18:59 06:59 Intake Total 110 ml 120 ml Output Total 350 ml Balance 110 ml -230 ml Intake Oral 120 ml IV Total 110 ml Output Urine Total 350 ml # Voids 2 3 # Bowel Movements 2 Laboratory Tests 12/19/18 05:45: White Blood Count 10.2, Red Blood Count 4.83, Hemoglobin 13.3, Hematocrit 41.0, Mean Corpuscular Volume 85, Mean Corpuscular Hemoglobin 27.5, Mean Corpuscular Hemoglobin Concent 32.4, Red Cell Distribution Width 14.1, Platelet Count 214, Mean Platelet Volume 8.1, Neutrophils (%) (Auto) 74.4, Lymphocytes (%) (Auto) 15.5L, Monocytes (%) (Auto) 8.4, Eosinophils (%) (Auto) 1.0, Basophils (%) (Auto ) 0.7, Sodium Level 141, Potassium Level 3.8, Chloride Level 106, Carbon Dioxide Level 27, Anion Gap 9, Blood Urea Nitrogen 12, Creatinine 0.8, Estimat Glomerular Filtration Rate > 60, Glucose Level 111H, Calcium Level 9.0, Total Bilirubin 0.7, Aspartate Amino Transf (AST/SGOT) 13L, Alanine Aminotransferase ( ALT/SGPT) 21, Alkaline Phosphatase 81, Total Protein 7.0, Albumin 3.0L, Globulin 4.0, Albumin/Globulin Ratio 0.8L Height (Feet): 5 Height (Inches): 0.00 Weight (Pounds): 229 Cardiovascular: normal rate Abdomen: tender Alejo Johnson MD Dec 19, 2018 21:29
[2018-12-20] VITALS: BP 114/58
--- NOTE | 2018-12-20 01:15 | Consultation ---
DATE OF CONSULTATION: 12/19/2018 INFECTIOUS DISEASE CONSULTATION CONSULTING PHYSICIAN: Lv Martell M.D. PRIMARY ATTENDING PHYSICIAN: Alejo Johnson M.D. REASON FOR CONSULTATION: Diverticulitis of colon. HISTORY OF PRESENT ILLNESS: This is a 58-year-old female admitted yesterday from home complaining of left-sided abdominal pain that was crampy in nature. She has shortness of breath, chest pain, and was found to have diverticulitis of colon. The patient had only left-sided abdominal pain. At the time of admission, she had leukocytosis of 20,300. A CT scan of the abdomen showed diverticulitis and started on IV antibiotic. PAST MEDICAL HISTORY: The patient has history of congestive heart failure and cardiomyopathy with ejection fraction of 30%, morbid obesity, COPD, hypertension, and history of chronic atrial fibrillation. MEDICATIONS: Digoxin, lisinopril, spironolactone, carvedilol, morphine, apixaban, Zofran, and Zosyn. ALLERGIES: No known drug allergy. SOCIAL HISTORY: Single. Originally from [facility]. She has 5 children. Has history of smoking and states that she does not smoke anymore. No drug or alcohol abuse. REVIEW OF SYSTEMS: No fever. No chills. No coughing. No chest pain. No nausea. No vomiting. She has left-sided abdominal pain. No problem passing urine. PHYSICAL EXAMINATION: VITAL SIGNS: Temperature 98.1, pulse 72, blood pressure 109/55, and had heart rate of 121 before. GENERAL APPEARANCE: Seems morbidly obese. HEAD AND NECK: [place] conjunctivae. No oral lesion. HEART: S1, S2 regular. LUNGS: Clear. ABDOMEN: Obese, soft, and tender in the left side. EXTREMITIES: She has trace edema of legs. LABORATORY AND DIAGNOSTIC DATA: Sodium 141, potassium 3.8, chloride 102, bicarbonate 27, BUN 12, creatinine 0.8, and glucose is 111. Albumin is 3. WBC 10.2, hemoglobin 13.3, hematocrit 41, and platelet is 214,000. CT scan of the abdomen and pelvis showed diverticulitis of descending colon without abscess, mild fatty liver, degenerative changes of lumbar spine. IMPRESSION: 1. Colon diverticulitis. 2. Atrial fibrillation with rapid ventricular rate, now is rate controlled. 3. Cardiomyopathy. 4. History of COPD. 5. Morbid obesity. 6. Hypertension. RECOMMENDATION: We will continue Zosyn. We will follow up the cultures. At the end of my exam, I thank Dr. Johnson for involving me in the care of this patient. Lv Martell M.D. DR: QUINTEN JOB#: [id number] CC: JASMYNE
[2018-12-20 04:00] VITALS: BP 116/56
[2018-12-20 06:17] LABS: BASOPHILS % (AUTO) 0.5 % (0.0-2.0); EOSINOPHILS % (AUTO) 1.9 % (0.0-3.0); HEMATOCRIT 38.9 % (37.0-47.0); HEMOGLOBIN 12.7 G/DL (12.0-16.0); LYMPHOCYTES % (AUTO) 13.7 % (20.0-45.0); MEAN CORPUSCULAR VOLUME 85 FL (80-99); MONOCYTES % (AUTO) 9.5 % (1.0-10.0); NEUTROPHILS % (AUTO) 74.4 % (45.0-75.0); PLATELET COUNT 205 K/UL (150-450); RED BLOOD COUNT 4.58 M/UL (4.20-5.40); RED CELL DISTRIBUTION WIDTH 14.1 % (11.6-14.8); WHITE BLOOD COUNT 9.6 K/UL (4.8-10.8)
[2018-12-20] MEDS: Piperacillin/Tazobactam 3.375 GM in NS 110 ML IVPB SCH ×4 (06:30→22:37)
[2018-12-20 06:37] LABS: ANION GAP 6 mmol/L (5-15); BLOOD UREA NITROGEN 10 mg/dL (7-18); CALCIUM 9.1 MG/DL (8.5-10.1); CARBON DIOXIDE 28 MMOL/L (21-32); CHLORIDE 106 MMOL/L (98-107); CREATININE 0.8 MG/DL (0.55-1.30); POTASSIUM 3.5 MMOL/L (3.5-5.1); SODIUM 140 MMOL/L (136-145)
--- NOTE | 2018-12-20 07:00 | NUR ---
NURSE NOTES: Stool collected and taken to lab.
--- NOTE | 2018-12-20 07:32 | NUR ---
HAND-OFF: Report given to Anton Garcia RN. Pt is resting in bed in stable condition. No acute distress noted. Endorsed plan of care.
--- NOTE | 2018-12-20 07:42 | NUR ---
NURSE NOTES: Received report from SEB Burleson. No signs of distress noted. A+Ox4, denies pain/SOB. IV site is patent and intact. Respirations are even and unlabored on room air. Bed is at lowest position, brakes engaged, siderails x2, bed alarm on, and call light within reach. Pt is in stable condition at this time; will continue to monitor.
[2018-12-20 08:00] VITALS: BP 100/52
--- NOTE | 2018-12-20 08:01 | NUR ---
CASE MANAGEMENT:REVIEW 12/20/18 SI: CHF. DIVERTICULITIS. AFIB W/RVR 98.0 70 18 116/56 96% ON RA IS: IV ZOSYN Q8HRS DIGOXIN PO QD LISINOPRIL PO QD ALDACTONE PO QD COREG PO Q12 ELIQUIS PO BID : TELEMETRY STATUS PLAN: STOOL FOR C-DIFF CLEARS
[2018-12-20] MEDS: Carvedilol 12.5mg tab ORAL SCH ×2 (09:00→22:30)
[2018-12-20] MEDS: Lisinopril 10mg tab ORAL SCH (09:00)
--- NOTE | 2018-12-20 09:10 | Cardiology Progress Note ---
Assessment/Plan Status: stable Assessment/Plan ASSESSMENT AND PLAN: 1. Atrial flutter with rapid ventricular response. Anticoagulation not needed for atrial flutter Patient currently on Eliquis 5 mg BID - recommend outpatient ziopatch to evaluate for AFIB Continue rate control with metoprolol and digoxin 2. Severe cardiomyopathy with EF of around 30%. Continue aldactone, metoprolol. May need ICD in 3 months if patient does not improve LVEF 3. Abdominal pain and diverticulitis. Further evaluation by Dr. Curiel. Currently nonsurgical. Advance diet as tolerated 4. Obesity. - discussed weight loss/nutrition consult 5. COPD. - stable Subjective Cardiovascular: Reports: no symptoms Respiratory: Reports: no symptoms Gastrointestinal/Abdominal: Reports: no symptoms Genitourinary: Reports: no symptoms Subjective COVERAGE FOR [place] Heart rate under control, troponin negative, BP stable, no acute events. Objective Last 24 Hour Vital Signs Date Time Temp Pulse Resp B/P (MAP) Pulse Ox O2 Delivery O2 Flow Rate FiO2 12/20/18 08:00 97.0 63 20 100/52 (68) 96 12/20/18 04:00 98.0 70 18 116/56 (76) 96 12/20/18 04:00 71 12/20/18 00:00 98.1 93 16 114/58 (76) 98 12/20/18 00:00 80 12/19/18 21:05 78 124/73 12/19/18 21:00 Room Air 12/19/18 20:00 83 12/19/18 20:00 99.0 78 18 124/73 (90) 96 12/19/18 17:27 98.1 12/19/18 16:00 100 12/19/18 16:00 98.2 63 20 101/57 (72) 98 12/19/18 12:00 74 12/19/18 12:00 98.1 72 20 109/55 (73) 95 12/19/18 10:22 Room Air General Appearance: no apparent distress, alert EENT: PERRL/EOMI, normal ENT inspection Neck: non-tender, normal alignment Rhythm: NSR Cardiovascular: normal peripheral pulses, normal rate, regular rhythm Respiratory/Chest: chest wall non-tender, lungs clear Abdomen: normal bowel sounds, non tender Extremities: normal range of motion, non-tender, normal inspection 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, no motor/sensory deficits Intake and Output 12/19/18 12/20/18 19:00 07:00 Intake Total 380 ml 240 ml Output Total 500 ml Balance 380 ml -260 ml Intake Oral 380 ml 240 ml Output Urine Total 500 ml # Voids 3 3 # Bowel Movements 1 Laboratory Tests Test 12/20/18 05:25 White Blood Count 9.6 K/UL (4.8-10.8) Red Blood Count 4.58 M/UL (4.20-5.40) Hemoglobin 12.7 G/DL (12.0-16.0) Hematocrit 38.9 % (37.0-47.0) Mean Corpuscular Volume 85 FL (80-99) Mean Corpuscular Hemoglobin 27.8 PG (27.0-31.0) Mean Corpuscular Hemoglobin Concent 32.8 G/DL (32.0-36.0) Red Cell Distribution Width 14.1 % (11.6-14.8) Platelet Count 205 K/UL (150-450) Mean Platelet Volume 8.4 FL (6.5-10.1) Neutrophils (%) (Auto) 74.4 % (45.0-75.0) Lymphocytes (%) (Auto) 13.7 % (20.0-45.0) L Monocytes (%) (Auto) 9.5 % (1.0-10.0) Eosinophils (%) (Auto) 1.9 % (0.0-3.0) Basophils (%) (Auto) 0.5 % (0.0-2.0) Sodium Level 140 MMOL/L (136-145) Potassium Level 3.5 MMOL/L (3.5-5.1) Chloride Level 106 MMOL/L (98-107) Carbon Dioxide Level 28 MMOL/L (21-32) Anion Gap 6 mmol/L (5-15) Blood Urea Nitrogen 10 mg/dL (7-18) Creatinine 0.8 MG/DL (0.55-1.30) Estimat Glomerular Filtration Rate > 60 mL/min (>60) Glucose Level 104 MG/DL (74-106) Calcium Level 9.1 MG/DL (8.5-10.1) Yo Charlton MD Dec 20, 2018 09:10
[2018-12-20] MEDS: Spironolactone 25mg tab ORAL SCH (09:43)
[2018-12-20] MEDS: Eliquis 5mg tablet ORAL SCH ×2 (09:44→18:22)
--- NOTE | 2018-12-20 10:37 | GI Progress Note ---
Assessment/Plan Problems: (1) Diverticulitis ICD Codes: K57.92 - Diverticulitis of intestine, part unspecified, without perforation or abscess without bleeding SNOMED: 531891040 (2) Obesity ICD Codes: E66.9 - Obesity, unspecified SNOMED: 648715975, 658537313 Status: stable Status Narrative Discussed with Dr. Curiel Assessment/Plan Medical management for diverticulitis Full liquid diet, advance as tolerated IV hydration Pain management Zofran as needed PPI abx Patient needs follow-up colonoscopy approximately 2 months after discharge The patient was seen and examined at bedside and all new and available data was reviewed in the patients chart. I agree with the above findings, impression and plan. (Patient seen earlier today. Signature stamp does not reflect patient encounter time.). - Thony Curiel MD Subjective Subjective abdominal pain improved tolerated clear liquid diet Objective Last 24 Hour Vital Signs Date Time Temp Pulse Resp B/P (MAP) Pulse Ox O2 Delivery O2 Flow Rate FiO2 12/20/18 09:46 63 12/20/18 09:00 100/52 12/20/18 09:00 63 100/52 12/20/18 08:00 97.0 63 20 100/52 (68) 96 12/20/18 07:40 95 12/20/18 04:00 98.0 70 18 116/56 (76) 96 12/20/18 04:00 71 12/20/18 00:00 98.1 93 16 114/58 (76) 98 12/20/18 00:00 80 12/19/18 21:05 78 124/73 12/19/18 21:00 Room Air 12/19/18 20:00 83 12/19/18 20:00 99.0 78 18 124/73 (90) 96 12/19/18 17:27 98.1 12/19/18 16:00 100 12/19/18 16:00 98.2 63 20 101/57 (72) 98 12/19/18 12:00 74 12/19/18 12:00 98.1 72 20 109/55 (73) 95 Intake and Output 12/19/18 12/20/18 19:00 07:00 Intake Total 380 ml 240 ml Output Total 500 ml Balance 380 ml -260 ml Intake Oral 380 ml 240 ml Output Urine Total 500 ml # Voids 3 3 # Bowel Movements 1 Laboratory Tests Test 12/20/18 05:25 White Blood Count 9.6 K/UL (4.8-10.8) Red Blood Count 4.58 M/UL (4.20-5.40) Hemoglobin 12.7 G/DL (12.0-16.0) Hematocrit 38.9 % (37.0-47.0) Mean Corpuscular Volume 85 FL (80-99) Mean Corpuscular Hemoglobin 27.8 PG (27.0-31.0) Mean Corpuscular Hemoglobin Concent 32.8 G/DL (32.0-36.0) Red Cell Distribution Width 14.1 % (11.6-14.8) Platelet Count 205 K/UL (150-450) Mean Platelet Volume 8.4 FL (6.5-10.1) Neutrophils (%) (Auto) 74.4 % (45.0-75.0) Lymphocytes (%) (Auto) 13.7 % (20.0-45.0) L Monocytes (%) (Auto) 9.5 % (1.0-10.0) Eosinophils (%) (Auto) 1.9 % (0.0-3.0) Basophils (%) (Auto) 0.5 % (0.0-2.0) Sodium Level 140 MMOL/L (136-145) Potassium Level 3.5 MMOL/L (3.5-5.1) Chloride Level 106 MMOL/L (98-107) Carbon Dioxide Level 28 MMOL/L (21-32) Anion Gap 6 mmol/L (5-15) Blood Urea Nitrogen 10 mg/dL (7-18) Creatinine 0.8 MG/DL (0.55-1.30) Estimat Glomerular Filtration Rate > 60 mL/min (>60) Glucose Level 104 MG/DL (74-106) Calcium Level 9.1 MG/DL (8.5-10.1) Height (Feet): 5 Height (Inches): 0.00 Weight (Pounds): 229 General Appearance: WD/WN, no apparent distress, alert Cardiovascular: normal rate Respiratory/Chest: normal breath sounds, no respiratory distress Abdominal Exam: normal bowel sounds, non tender, soft Extremities: normal range of motion, non-tender Patrick Oliveira CUSTOMS MANAGER Dec 20, 2018 10:37
[2018-12-20 12:00] VITALS: BP 103/60
--- NOTE | 2018-12-20 12:33 | General Progress Note ---
Assessment/Plan Assessment/Plan: (1) Abdominal pain (2) Diverticulitis (3) Morbid obesity We will continue Morphine. D/w Dr. Patterson and he concurred. Subjective Date patient seen: Dec 20, 2018 Time patient seen: 12:15 - pm Constitutional: Reports: no symptoms HEENT: Reports: no symptoms Cardiovascular: Reports: no symptoms Respiratory: Reports: no symptoms Gastrointestinal/Abdominal: Reports: abdominal pain Genitourinary: Reports: no symptoms Neurologic/Psychiatric: Reports: no symptoms Endocrine: Reports: no symptoms Hematologic/Lymphatic: Reports: no symptoms Allergies: Coded Allergies: NO KNOWN ALLERGIES (Unverified Allergy, Unknown, 02/19/18) Subjective Patient is in bed reports that the pain has been reducing and tolerated on the Morphine as needed. Objective Last 24 Hour Vital Signs Date Time Temp Pulse Resp B/P (MAP) Pulse Ox O2 Delivery O2 Flow Rate FiO2 12/20/18 09:46 63 12/20/18 09:00 100/52 12/20/18 09:00 63 100/52 12/20/18 08:00 97.0 63 20 100/52 (68) 96 12/20/18 07:40 95 12/20/18 04:00 98.0 70 18 116/56 (76) 96 12/20/18 04:00 71 12/20/18 00:00 98.1 93 16 114/58 (76) 98 12/20/18 00:00 80 12/19/18 21:05 78 124/73 12/19/18 21:00 Room Air 12/19/18 20:00 83 12/19/18 20:00 99.0 78 18 124/73 (90) 96 12/19/18 17:27 98.1 12/19/18 16:00 100 12/19/18 16:00 98.2 63 20 101/57 (72) 98 Intake and Output 12/19/18 12/20/18 19:00 07:00 Intake Total 380 ml 240 ml Output Total 500 ml Balance 380 ml -260 ml Intake Oral 380 ml 240 ml Output Urine Total 500 ml # Voids 3 3 # Bowel Movements 1 Laboratory Tests 12/20/18 05:25: White Blood Count 9.6, Red Blood Count 4.58, Hemoglobin 12.7, Hematocrit 38.9, Mean Corpuscular Volume 85, Mean Corpuscular Hemoglobin 27.8, Mean Corpuscular Hemoglobin Concent 32.8, Red Cell Distribution Width 14.1, Platelet Count 205, Mean Platelet Volume 8.4, Neutrophils (%) (Auto) 74.4, Lymphocytes (%) (Auto) 13.7L, Monocytes (%) (Auto) 9.5, Eosinophils (%) (Auto) 1.9, Basophils (%) (Auto ) 0.5, Sodium Level 140, Potassium Level 3.5, Chloride Level 106, Carbon Dioxide Level 28, Anion Gap 6, Blood Urea Nitrogen 10, Creatinine 0.8, Estimat Glomerular Filtration Rate > 60, Glucose Level 104, Calcium Level 9.1 Height (Feet): 5 Height (Inches): 0.00 Weight (Pounds): 229 General Appearance: no apparent distress, alert EENT: PERRL/EOMI, normal ENT inspection Neck: normal alignment, supple Abdomen: tender Extremities: non-tender Edema: trace edema Neurologic: alert, oriented x 3 Skin: warm/dry Pawan Peter Dec 20, 2018 12:33
[2018-12-20] MEDS: Morphine Sulfate 2mg/ml Inj(IV/IM USE ONLY) IVP PRN ×2 (13:11→20:43)
--- NOTE | 2018-12-20 13:23 | Infectious Diseases Prog Note ---
Assessment/Plan Assessment/Plan IMPRESSION: 1. Colon diverticulitis. 2. Atrial fibrillation with rapid ventricular rate, now is rate controlled. 3. Cardiomyopathy. 4. History of COPD. 5. Morbid obesity. 6. Hypertension. RECOMMENDATION: will continue Zosyn in hospital At time of discharge PO Cipro & Flagyl Subjective ROS Limited/Unobtainable: No Constitutional: Reports: no symptoms Respiratory: Reports: no symptoms Cardiovascular: Reports: no symptoms Gastrointestinal/Abdominal: Reports: other - pain in left decreased Genitourinary: Reports: no symptoms Allergies: Coded Allergies: NO KNOWN ALLERGIES (Unverified Allergy, Unknown, 02/19/18) Objective Vital Signs Last 24 Hour Vital Signs Date Time Temp Pulse Resp B/P (MAP) Pulse Ox O2 Delivery O2 Flow Rate FiO2 12/20/18 09:46 63 12/20/18 09:00 100/52 12/20/18 09:00 63 100/52 12/20/18 09:00 Room Air 12/20/18 08:00 97.0 63 20 100/52 (68) 96 12/20/18 07:40 95 12/20/18 04:00 98.0 70 18 116/56 (76) 96 12/20/18 04:00 71 12/20/18 00:00 98.1 93 16 114/58 (76) 98 12/20/18 00:00 80 12/19/18 21:05 78 124/73 12/19/18 21:00 Room Air 12/19/18 20:00 83 12/19/18 20:00 99.0 78 18 124/73 (90) 96 12/19/18 17:27 98.1 12/19/18 16:00 100 12/19/18 16:00 98.2 63 20 101/57 (72) 98 Height (Feet): 5 Height (Inches): 0.00 Weight (Pounds): 229 General Appearance: no acute distress, other - obese Respiratory/Chest: lungs clear Cardiovascular: normal rate Abdomen: normal bowel sounds Extremities: other - trace edema of legs Neurologic/Psychiatric: alert, oriented x 3, responsive Laboratory Tests Test 12/20/18 05:25 White Blood Count 9.6 K/UL (4.8-10.8) Red Blood Count 4.58 M/UL (4.20-5.40) Hemoglobin 12.7 G/DL (12.0-16.0) Hematocrit 38.9 % (37.0-47.0) Mean Corpuscular Volume 85 FL (80-99) Mean Corpuscular Hemoglobin 27.8 PG (27.0-31.0) Mean Corpuscular Hemoglobin Concent 32.8 G/DL (32.0-36.0) Red Cell Distribution Width 14.1 % (11.6-14.8) Platelet Count 205 K/UL (150-450) Mean Platelet Volume 8.4 FL (6.5-10.1) Neutrophils (%) (Auto) 74.4 % (45.0-75.0) Lymphocytes (%) (Auto) 13.7 % (20.0-45.0) L Monocytes (%) (Auto) 9.5 % (1.0-10.0) Eosinophils (%) (Auto) 1.9 % (0.0-3.0) Basophils (%) (Auto) 0.5 % (0.0-2.0) Sodium Level 140 MMOL/L (136-145) Potassium Level 3.5 MMOL/L (3.5-5.1) Chloride Level 106 MMOL/L (98-107) Carbon Dioxide Level 28 MMOL/L (21-32) Anion Gap 6 mmol/L (5-15) Blood Urea Nitrogen 10 mg/dL (7-18) Creatinine 0.8 MG/DL (0.55-1.30) Estimat Glomerular Filtration Rate > 60 mL/min (>60) Glucose Level 104 MG/DL (74-106) Calcium Level 9.1 MG/DL (8.5-10.1) Current Medications Medications (Trade) Dose Ordered Sig/Kaleb Route PRN Reason Start Time Stop Time Status Last Admin Dose Admin Apixaban (Eliquis) 5 mg BID ORAL 12/18/18 18:00 01/17/19 17:59 12/20/18 09:44 Carvedilol (Coreg) 12.5 mg EVERY 12 HOURS ORAL 12/18/18 21:00 01/17/19 20:59 12/19/18 21:05 Digoxin (Lanoxin) 0.25 mg DAILY ORAL 12/19/18 09:00 01/18/19 08:59 12/20/18 09:46 Iopamidol (Isovue-300 100ml) 100 ml NOW PRN INJ Radiology Procedure 12/18/18 08:00 Lisinopril (Zestril) 10 mg DAILY ORAL 12/19/18 09:00 01/18/19 08:59 12/19/18 09:09 Morphine Sulfate (Morphine Sulfate) 2 mg Q4H PRN IVP Severe Pain (Pain Scale 7-10) 12/18/18 19:15 12/25/18 19:14 12/20/18 13:11 Ondansetron HCl (Zofran) 4 mg Q6H PRN IVP Nausea & Vomiting 12/18/18 14:15 01/17/19 14:14 12/19/18 21:05 Piperacillin Sod/ Tazobactam Sod 3.375 gm/Sodium Chloride 110 ml @ 27.5 mls/hr EVERY 8 HOURS IVPB 12/18/18 14:00 12/23/18 13:59 12/20/18 06:30 Spironolactone (Aldactone) 25 mg DAILY ORAL 12/19/18 09:00 01/18/19 08:59 12/20/18 09:43 Lv Martell MD Dec 20, 2018 13:23
--- NOTE | 2018-12-20 15:47 | NUR ---
*-* INSURANCE *-* ALL CLINICALS AND REVIEWS HAVE BEEN FAXED TO: [employer] [employer] PLEASE FAX THE REVIEW/CLINICAL FX: [phone] & BS/[facility] DEPT. SHE STATED THAT [facility] WILL TRACK THIS ADMISSION. [place]; [facility]- [phone] FX: [phone]...REVIEW/CLINICAL
[2018-12-20 16:00] VITALS: BP 107/61
--- NOTE | 2018-12-20 17:47 | Cardiology Report ---
APPROVED REPORT EXAM: Two-dimensional and M-mode echocardiogram with Doppler and color Doppler. INDICATION Congestive Heart Failure M-Mode DIMENSIONS IVSd1.3 (0.7-1.1cm)Left Atrium (MM)3.6 (1.6-4.0cm) LVDd5.3 (3.5-5.6cm)Aortic Root2.3 (2.0-3.7cm) PWd1.1 (0.7-1.1cm)Aortic Cusp Exc.1.5 (1.5-2.0cm) IVSs1.6 cm LVDs4.4 (2.5-4.0cm) PWs0.9 cm Study quality precludes accurate assessment of regional wall motion. Normal left ventricular chamber size, reduced systolic function and wall motion to extent visualized. Left ventricular ejection fraction estimated to be 40-50 %. No evidence of left ventricular hypertrophy . All other cardiac chamber sizes are within normal limits. Normal right atrial chamber size to extend visualized . Aortic valve calcification with reduced cusp excursion . Mildly thickened mitral valve leaflets with normal excursion. Mild mitral annulus and aortic root calcification. Pulmonic valve not well visualized. IVC at normal size with slightly physiologic collapse. A color flow and spectral Doppler study was performed and revealed: No aortic insufficiency . Peak aortic valve gradient of 8 mm Hg and a mean of 17 mmHg. Aortic valve area 2.7 cm2 calculated by continuity equation. Left ventricular diastolic function is not diagnostic due to A-flutter. Mild mitral regurgitation. Trace tricuspid regurgitation. Tricuspid systolic velocities suggests peak right ventricular systolic pressure of 18mmHg.
--- NOTE | 2018-12-20 19:40 | NUR ---
HAND-OFF: Report given to SEB Salazar. Pt is in stable condition; plan of care endorsed.
--- NOTE | 2018-12-20 19:47 | NUR ---
NURSE NOTES: Received report from SEB Islas. Patient is awake lying semi-barclay's; resting comfortably. No signs of acute distress noted; complains of pain. AOx4; able to make needs known. Primarily Namibian speaking. Ambulates with assistance and cane. Checked IV site; patent and flushed. No erythema, bleeding, or infiltration noted. Bed at lowest position, brakes on, siderails up x3. Call light within reach. Will continue to monitor.
[2018-12-20 20:00] VITALS: BP 124/73
--- NOTE | 2018-12-20 22:21 | General Progress Note ---
Assessment/Plan Problem List: (1) Morbid obesity ICD Codes: E66.01 - Morbid (severe) obesity due to excess calories SNOMED: 719863189 (2) HTN (hypertension) ICD Codes: I10 - Essential (primary) hypertension SNOMED: 24925279 (3) Diverticulitis ICD Codes: K57.92 - Diverticulitis of intestine, part unspecified, without perforation or abscess without bleeding SNOMED: 737164105 (4) CHF (congestive heart failure) ICD Codes: I50.9 - Heart failure, unspecified SNOMED: 36340931 Status: progressing Assessment/Plan: diverticulitis is improving abdominal pain is improving no bleeding diet per gi reviewed labs and chart and meds Subjective Gastrointestinal/Abdominal: Reports: abdominal pain Allergies: Coded Allergies: NO KNOWN ALLERGIES (Unverified Allergy, Unknown, 02/19/18) Objective Last 24 Hour Vital Signs Date Time Temp Pulse Resp B/P (MAP) Pulse Ox O2 Delivery O2 Flow Rate FiO2 12/20/18 16:00 98.2 76 20 107/61 (76) 90 12/20/18 15:53 86 12/20/18 12:00 98.2 84 20 103/60 (74) 96 12/20/18 11:53 68 12/20/18 09:46 63 12/20/18 09:00 100/52 12/20/18 09:00 63 100/52 12/20/18 09:00 Room Air 12/20/18 08:00 97.0 63 20 100/52 (68) 96 12/20/18 07:40 95 12/20/18 04:00 98.0 70 18 116/56 (76) 96 12/20/18 04:00 71 12/20/18 00:00 98.1 93 16 114/58 (76) 98 12/20/18 00:00 80 Intake and Output 12/19/18 12/20/18 19:00 07:00 Intake Total 380 ml 240 ml Output Total 500 ml Balance 380 ml -260 ml Intake Oral 380 ml 240 ml Output Urine Total 500 ml # Voids 3 3 # Bowel Movements 1 Laboratory Tests 12/20/18 05:25: White Blood Count 9.6, Red Blood Count 4.58, Hemoglobin 12.7, Hematocrit 38.9, Mean Corpuscular Volume 85, Mean Corpuscular Hemoglobin 27.8, Mean Corpuscular Hemoglobin Concent 32.8, Red Cell Distribution Width 14.1, Platelet Count 205, Mean Platelet Volume 8.4, Neutrophils (%) (Auto) 74.4, Lymphocytes (%) (Auto) 13.7L, Monocytes (%) (Auto) 9.5, Eosinophils (%) (Auto) 1.9, Basophils (%) (Auto ) 0.5, Sodium Level 140, Potassium Level 3.5, Chloride Level 106, Carbon Dioxide Level 28, Anion Gap 6, Blood Urea Nitrogen 10, Creatinine 0.8, Estimat Glomerular Filtration Rate > 60, Glucose Level 104, Calcium Level 9.1 Height (Feet): 5 Height (Inches): 0.00 Weight (Pounds): 229 Respiratory/Chest: lungs clear Alejo Johnson MD Dec 20, 2018 22:21
[2018-12-21] VITALS (7 sets, daily range): BP systolic 107–137; BP diastolic 57–73
[2018-12-21] MEDS: Morphine Sulfate 2mg/ml Inj(IV/IM USE ONLY) IVP PRN ×4 (02:41→22:18)
[2018-12-21] MEDS: Piperacillin/Tazobactam 3.375 GM in NS 110 ML IVPB SCH ×3 (06:20→21:36)
--- NOTE | 2018-12-21 07:15 | NUR ---
HAND-OFF: Report given to SEB Vargas. Patient is awake lying semi-barclay's; resting comfortably. In stable condition.
--- NOTE | 2018-12-21 07:16 | NUR ---
NURSE NOTES: Report received from SEB Salazar. Pt is resting in bed, in stable condition. Pt is AOx 4, mostly Bahamian speaking. Breathing is even and unlabored in room air. No acute distress noted at this time. IV is intact and running at RX dose. Bed in lowest position with brake engaged and side rails up x2. Call light and side table placed within reach. Will continue to monitor.
--- NOTE | 2018-12-21 07:48 | Cardiology Progress Note ---
Assessment/Plan Status: stable Assessment/Plan ASSESSMENT AND PLAN: 1. Atrial flutter with rapid ventricular response. Anticoagulation not needed for atrial flutter Patient currently on Eliquis 5 mg BID - recommend outpatient ziopatch to evaluate for AFIB Continue rate control with metoprolol and digoxin 2. Severe cardiomyopathy with EF of around 30%. Non ischemic Continue aldactone, metoprolol. Repeat TTE with LVEF 40-50% 3. Abdominal pain and diverticulitis. Further evaluation by Dr. Curiel. Currently nonsurgical. Advance diet as tolerated 4. Obesity. - discussed weight loss/nutrition consult 5. COPD. - stable Subjective Cardiovascular: Reports: no symptoms Respiratory: Reports: no symptoms Gastrointestinal/Abdominal: Reports: no symptoms Genitourinary: Reports: no symptoms Subjective [employer] Heart rate under control, troponin negative, BP stable, no acute events. TTE reviewed, no significant findings Tolerating PO, pain controlled Objective Last 24 Hour Vital Signs Date Time Temp Pulse Resp B/P (MAP) Pulse Ox O2 Delivery O2 Flow Rate FiO2 12/21/18 04:00 72 12/21/18 04:00 97.3 18 132/73 (92) 97 12/21/18 00:00 93 12/21/18 00:00 98.1 87 18 124/66 (85) 95 12/20/18 22:30 98 124/73 12/20/18 21:00 Room Air 12/20/18 20:00 83 12/20/18 20:00 99.7 98 18 124/73 (90) 98 12/20/18 16:00 98.2 76 20 107/61 (76) 90 12/20/18 15:53 86 12/20/18 12:00 98.2 84 20 103/60 (74) 96 12/20/18 11:53 68 12/20/18 09:46 63 12/20/18 09:00 100/52 12/20/18 09:00 63 100/52 12/20/18 09:00 Room Air 12/20/18 08:00 97.0 63 20 100/52 (68) 96 General Appearance: no apparent distress, alert EENT: PERRL/EOMI, normal ENT inspection, TMs normal, pharynx normal Neck: non-tender, normal alignment, supple, normal inspection, no JVD Rhythm: NSR Cardiovascular: normal peripheral pulses, normal rate, regular rhythm Respiratory/Chest: chest wall non-tender, lungs clear, normal breath sounds, no respiratory distress, no accessory muscle use Abdomen: normal bowel sounds, non tender, soft, no organomegaly, no mass Extremities: normal range of motion, non-tender, normal inspection, no calf tenderness Neurologic: radiation monitor II-XII grossly normal, no motor/sensory deficits Intake and Output 12/20/18 12/21/18 19:00 07:00 Intake Total 620 ml 368.3 ml Balance 620 ml 368.3 ml Intake Oral 620 ml 240 ml IV Total 128.3 ml # Voids 3 2 Microbiology Date/Time Source Procedure Growth Status 12/20/18 07:00 Stool Clostridium difficile Toxin Assay - Final Complete Filsoof,Yo Carlin MD Dec 21, 2018 07:48
[2018-12-21 08:09] LABS: EOSINOPHILS % (AUTO) 3.1 % (0.0-3.0); HEMATOCRIT 40.1 % (37.0-47.0); HEMOGLOBIN 12.9 G/DL (12.0-16.0); LYMPHOCYTES % (AUTO) 21.3 % (20.0-45.0); MEAN CORPUSCULAR VOLUME 85 FL (80-99); NEUTROPHILS % (AUTO) 65.6 % (45.0-75.0); PLATELET COUNT 213 K/UL (150-450); RED BLOOD COUNT 4.69 M/UL (4.20-5.40); RED CELL DISTRIBUTION WIDTH 13.8 % (11.6-14.8); WHITE BLOOD COUNT 8.1 K/UL (4.8-10.8)
[2018-12-21] MEDS: Spironolactone 25mg tab ORAL SCH (08:29)
[2018-12-21] MEDS: Carvedilol 12.5mg tab ORAL SCH ×2 (08:29→21:36)
[2018-12-21] MEDS: Lisinopril 10mg tab ORAL SCH (08:30)
[2018-12-21 08:33] LABS: ANION GAP 7 mmol/L (5-15); BLOOD UREA NITROGEN 13 mg/dL (7-18); CALCIUM 9.2 MG/DL (8.5-10.1); CARBON DIOXIDE 27 MMOL/L (21-32); CHLORIDE 108 MMOL/L (98-107); CREATININE 0.8 MG/DL (0.55-1.30); POTASSIUM 3.9 MMOL/L (3.5-5.1); SODIUM 142 MMOL/L (136-145)
[2018-12-21] MEDS: Eliquis 5mg tablet ORAL SCH ×2 (09:30→18:12)
--- NOTE | 2018-12-21 12:42 | General Progress Note ---
Assessment/Plan Problem List: (1) Morbid obesity ICD Codes: E66.01 - Morbid (severe) obesity due to excess calories SNOMED: 780038338 (2) HTN (hypertension) ICD Codes: I10 - Essential (primary) hypertension SNOMED: 64718248 (3) Diverticulitis ICD Codes: K57.92 - Diverticulitis of intestine, part unspecified, without perforation or abscess without bleeding SNOMED: 226232233 (4) CHF (congestive heart failure) ICD Codes: I50.9 - Heart failure, unspecified SNOMED: 64244688 Status: stable Assessment/Plan: obesity abdominal pain is improving vitals stable afebrile abx per id reviewed labs and chart and meds Subjective Gastrointestinal/Abdominal: Reports: abdominal pain Allergies: Coded Allergies: NO KNOWN ALLERGIES (Unverified Allergy, Unknown, 02/19/18) Objective Last 24 Hour Vital Signs Date Time Temp Pulse Resp B/P (MAP) Pulse Ox O2 Delivery O2 Flow Rate FiO2 12/21/18 12:00 98.2 71 21 130/65 (86) 95 12/21/18 09:00 Room Air 12/21/18 08:30 114/57 12/21/18 08:29 96 114/57 12/21/18 08:29 96 12/21/18 08:00 98.1 96 20 114/57 (76) 99 12/21/18 07:50 94 12/21/18 04:00 72 12/21/18 04:00 97.3 18 132/73 (92) 97 12/21/18 00:00 93 12/21/18 00:00 98.1 87 18 124/66 (85) 95 12/20/18 22:30 98 124/73 12/20/18 21:00 Room Air 12/20/18 20:00 83 12/20/18 20:00 99.7 98 18 124/73 (90) 98 12/20/18 16:00 98.2 76 20 107/61 (76) 90 12/20/18 15:53 86 Intake and Output 12/20/18 12/21/18 19:00 07:00 Intake Total 620 ml 368.3 ml Balance 620 ml 368.3 ml Intake Oral 620 ml 240 ml IV Total 128.3 ml # Voids 3 2 Laboratory Tests 12/21/18 05:58: White Blood Count 8.1, Red Blood Count 4.69, Hemoglobin 12.9, Hematocrit 40.1, Mean Corpuscular Volume 85, Mean Corpuscular Hemoglobin 27.4, Mean Corpuscular Hemoglobin Concent 32.1, Red Cell Distribution Width 13.8, Platelet Count 213, Mean Platelet Volume 8.5, Neutrophils (%) (Auto) 65.6, Lymphocytes (%) (Auto) 21.3, Monocytes (%) (Auto) 9.0, Eosinophils (%) (Auto) 3.1H, Basophils (%) (Auto ) 1.0, Sodium Level 142, Potassium Level 3.9, Chloride Level 108H, Carbon Dioxide Level 27, Anion Gap 7, Blood Urea Nitrogen 13, Creatinine 0.8, Estimat Glomerular Filtration Rate > 60, Glucose Level 100, Calcium Level 9.2 Height (Feet): 5 Height (Inches): 0.00 Weight (Pounds): 229 Cardiovascular: normal rate Respiratory/Chest: lungs clear Abdomen: soft Alejo Johnson MD Dec 21, 2018 12:42
[2018-12-21] MEDS ORDERED: NS 275ml ONE (17:49)
--- NOTE | 2018-12-21 19:20 | NUR ---
HAND-OFF: Report given to SEB Salazar.
--- NOTE | 2018-12-21 19:31 | NUR ---
NURSE NOTES: Received report from SEB Vargas. Patient is awake lying semi-barclay's; resting comfortably. No signs of acute distress noted; complains of some pain. AOx4; able to make needs known. Primarily Estonian speaking. Ambulates with assistance and cane. Checked IV site; patent and flushed. No erythema, bleeding, or infiltration noted. Bed at lowest position, brakes on, siderails up x3. Call light within reach. Will continue to monitor.
[2018-12-22] VITALS: BP 121/43
--- NOTE | 2018-12-22 03:15 | NUR ---
NURSE NOTES: Patient is asleep lying semi-barclay's; resting comfortably. No signs of acute distress or pain noted at this time.
[2018-12-22 04:00] VITALS: BP 124/59
[2018-12-22] MEDS: Morphine Sulfate 2mg/ml Inj(IV/IM USE ONLY) IVP PRN ×3 (04:47→21:36)
[2018-12-22] MEDS: Piperacillin/Tazobactam 3.375 GM in NS 110 ML IVPB SCH ×3 (06:00→21:35)
--- NOTE | 2018-12-22 07:20 | NUR ---
NURSE NOTES: I received the patient awake and resting in bed. Patient does not display any signs of distress or SOB. Patient alert and oriented x4. Bed in the lowest position and call light within reach. I will continue to monitor the patient and implement care.
--- NOTE | 2018-12-22 07:33 | NUR ---
HAND-OFF: Report given to SEB Merritt. Patient is asleep lying semi-barclay's; resting comfortably. In stable condition.
[2018-12-22 08:00] VITALS: BP_SYST 115; BP_SYST 120; BP_DIAS 66; BP_DIAS 77
[2018-12-22] MEDS: Eliquis 5mg tablet ORAL SCH ×2 (09:04→17:47)
[2018-12-22] MEDS: Spironolactone 25mg tab ORAL SCH (09:05)
[2018-12-22] MEDS: Lisinopril 10mg tab ORAL SCH (09:05)
[2018-12-22] MEDS: Carvedilol 12.5mg tab ORAL SCH ×2 (09:05→21:35)
--- NOTE | 2018-12-22 09:25 | Cardiology Progress Note ---
Assessment/Plan Status: stable Assessment/Plan ASSESSMENT AND PLAN: 1. Atrial flutter with rapid ventricular response. Anticoagulation not needed for atrial flutter Patient currently on Eliquis 5 mg BID - recommend outpatient ziopatch to evaluate for AFIB Continue rate control with metoprolol and digoxin 2. Severe cardiomyopathy with EF of around 30%. Non ischemic Continue aldactone, metoprolol. Repeat TTE with LVEF 40-50% 3. Abdominal pain and diverticulitis. Further evaluation by Dr. Curiel. Currently nonsurgical. Advance diet as tolerated 4. Obesity. - discussed weight loss/nutrition consult 5. COPD. - stable Subjective Cardiovascular: Reports: no symptoms Respiratory: Reports: no symptoms Gastrointestinal/Abdominal: Reports: no symptoms Genitourinary: Reports: no symptoms Subjective [employer] Heart rate under control, troponin negative, BP stable, no acute events. TTE reviewed, no significant findings Tolerating PO, pain controlled Objective Last 24 Hour Vital Signs Date Time Temp Pulse Resp B/P (MAP) Pulse Ox O2 Delivery O2 Flow Rate FiO2 12/22/18 09:05 115/66 12/22/18 09:05 110 115/66 12/22/18 09:05 90 12/22/18 09:00 Room Air 12/22/18 08:00 98.3 110 18 115/66 (82) 95 12/22/18 04:00 96.4 81 18 124/59 (80) 95 12/22/18 04:00 70 12/22/18 00:00 87 12/22/18 00:00 98.8 74 18 121/43 (69) 98 12/21/18 21:36 80 121/67 12/21/18 21:00 Room Air 12/21/18 20:00 98.2 80 18 121/67 (85) 97 12/21/18 20:00 81 12/21/18 16:01 97.7 88 20 137/68 (91) 95 12/21/18 16:00 78 12/21/18 12:00 98.2 71 21 130/65 (86) 95 12/21/18 12:00 72 General Appearance: no apparent distress, alert EENT: PERRL/EOMI, normal ENT inspection, TMs normal, pharynx normal Neck: non-tender, normal alignment, supple, normal inspection, no JVD Rhythm: NSR Cardiovascular: normal peripheral pulses, normal rate, regular rhythm Respiratory/Chest: chest wall non-tender, lungs clear, normal breath sounds Abdomen: normal bowel sounds, non tender, soft, no organomegaly, no mass Extremities: normal range of motion, non-tender, normal inspection 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
--- NOTE | 2018-12-22 09:46 | Infectious Diseases Prog Note ---
Assessment/Plan Assessment/Plan IMPRESSION: 1. Colon diverticulitis. 2. Atrial fibrillation with rapid ventricular rate, now is rate controlled. 3. Cardiomyopathy. 4. History of COPD. 5. Morbid obesity. 6. Hypertension. RECOMMENDATION: will continue Zosyn in hospital At time of discharge PO Cipro & Flagyl Subjective ROS Limited/Unobtainable: No Constitutional: Reports: no symptoms Respiratory: Reports: no symptoms Cardiovascular: Reports: no symptoms Gastrointestinal/Abdominal: Reports: other - pain controlled; Denies: nausea, vomiting, diarrhea Musculoskeletal: Reports: no symptoms Allergies: Coded Allergies: NO KNOWN ALLERGIES (Unverified Allergy, Unknown, 02/19/18) Objective Vital Signs Last 24 Hour Vital Signs Date Time Temp Pulse Resp B/P (MAP) Pulse Ox O2 Delivery O2 Flow Rate FiO2 12/22/18 09:05 115/66 12/22/18 09:05 110 115/66 12/22/18 09:05 90 12/22/18 09:00 Room Air 12/22/18 08:10 89 12/22/18 08:00 98.3 110 18 115/66 (82) 95 12/22/18 04:00 96.4 81 18 124/59 (80) 95 12/22/18 04:00 70 12/22/18 00:00 87 12/22/18 00:00 98.8 74 18 121/43 (69) 98 12/21/18 21:36 80 121/67 12/21/18 21:00 Room Air 12/21/18 20:00 98.2 80 18 121/67 (85) 97 12/21/18 20:00 81 12/21/18 16:01 97.7 88 20 137/68 (91) 95 12/21/18 16:00 78 12/21/18 12:00 98.2 71 21 130/65 (86) 95 12/21/18 12:00 72 Height (Feet): 5 Height (Inches): 0.00 Weight (Pounds): 231 General Appearance: no acute distress, other - obese Cardiovascular: normal rate Abdomen: soft, non tender Extremities: no edema Neurologic/Psychiatric: alert, oriented x 3, responsive Microbiology Date/Time Source Procedure Growth Status 12/20/18 07:00 Stool Stool Culture - Preliminary NO SALMONELLA,SHIGELLA,OR CAMPYLOBACT... Resulted 12/20/18 07:00 Stool Clostridium difficile Toxin Assay - Final Complete Current Medications Medications (Trade) Dose Ordered Sig/Kaleb Route PRN Reason Start Time Stop Time Status Last Admin Dose Admin Apixaban (Eliquis) 5 mg BID ORAL 12/18/18 18:00 01/17/19 17:59 12/22/18 09:04 Carvedilol (Coreg) 12.5 mg EVERY 12 HOURS ORAL 12/18/18 21:00 01/17/19 20:59 12/22/18 09:05 Digoxin (Lanoxin) 0.25 mg DAILY ORAL 12/19/18 09:00 01/18/19 08:59 12/22/18 09:05 Iopamidol (Isovue-300 100ml) 100 ml NOW PRN INJ Radiology Procedure 12/18/18 08:00 Lisinopril (Zestril) 10 mg DAILY ORAL 12/19/18 09:00 01/18/19 08:59 12/22/18 09:05 Morphine Sulfate (Morphine Sulfate) 2 mg Q4H PRN IVP Severe Pain (Pain Scale 7-10) 12/18/18 19:15 12/25/18 19:14 12/22/18 04:47 Ondansetron HCl (Zofran) 4 mg Q6H PRN IVP Nausea & Vomiting 12/18/18 14:15 01/17/19 14:14 12/19/18 21:05 Piperacillin Sod/ Tazobactam Sod 3.375 gm/Sodium Chloride 110 ml @ 27.5 mls/hr EVERY 8 HOURS IVPB 12/18/18 14:00 12/23/18 13:59 12/22/18 06:00 Spironolactone (Aldactone) 25 mg DAILY ORAL 12/19/18 09:00 01/18/19 08:59 12/22/18 09:05 Lv Martell MD Dec 22, 2018 09:46
[2018-12-22 12:00] VITALS: BP 122/71
[2018-12-22 16:00] VITALS: BP 118/71
--- NOTE | 2018-12-22 19:20 | NUR ---
HAND-OFF: Report given to Raegan Smith RN.
--- NOTE | 2018-12-22 19:27 | NUR ---
NURSE NOTES: Received report from SEB Merritt. Patient is awake lying semi-barclay's; resting comfortably. No signs of acute distress noted; complains of some pain. Family member at bedside. AOx4; able to make needs known. Primarily Lithuanian speaking. Ambulates with assistance and cane. Checked IV site; patent and flushed. No erythema, bleeding, or infiltration noted. Bed at lowest position, brakes on, siderails up x3. Call light within reach. Will continue to monitor.
[2018-12-22 20:00] VITALS: BP 124/62
--- NOTE | 2018-12-22 21:51 | General Progress Note ---
Assessment/Plan Problem List: (1) Morbid obesity ICD Codes: E66.01 - Morbid (severe) obesity due to excess calories SNOMED: 600668530 (2) HTN (hypertension) ICD Codes: I10 - Essential (primary) hypertension SNOMED: 70758505 (3) Diverticulitis ICD Codes: K57.92 - Diverticulitis of intestine, part unspecified, without perforation or abscess without bleeding SNOMED: 679555342 (4) CHF (congestive heart failure) ICD Codes: I50.9 - Heart failure, unspecified SNOMED: 40243044 Status: stable Assessment/Plan: afebrile dc in am diet toleralting reviewed labs and chart and med Subjective ROS Limited/Unobtainable: Yes Allergies: Coded Allergies: NO KNOWN ALLERGIES (Unverified Allergy, Unknown, 02/19/18) Objective Last 24 Hour Vital Signs Date Time Temp Pulse Resp B/P (MAP) Pulse Ox O2 Delivery O2 Flow Rate FiO2 12/22/18 21:35 78 124/62 12/22/18 20:00 97.4 78 18 124/62 (82) 97 12/22/18 16:00 97.8 91 18 118/71 (87) 99 12/22/18 15:34 101 12/22/18 12:17 98.5 12/22/18 12:00 98.5 75 18 122/71 (88) 95 12/22/18 11:58 73 12/22/18 09:05 115/66 12/22/18 09:05 110 115/66 12/22/18 09:05 90 12/22/18 09:00 Room Air 12/22/18 08:10 89 12/22/18 08:00 98.3 110 18 115/66 (82) 95 12/22/18 04:00 96.4 81 18 124/59 (80) 95 12/22/18 04:00 70 12/22/18 00:00 87 12/22/18 00:00 98.8 74 18 121/43 (69) 98 Intake and Output 12/21/18 12/22/18 19:00 07:00 Intake Total 1200 ml 487.5 ml Output Total 700 ml Balance 1200 ml -212.5 ml Intake Oral 1200 ml 350 ml IV Total 137.5 ml Output Urine Total 700 ml # Voids 2 Height (Feet): 5 Height (Inches): 0.00 Weight (Pounds): 231 Neck: normal alignment Cardiovascular: normal rate Respiratory/Chest: lungs clear Alejo Johnson MD Dec 22, 2018 21:51
[2018-12-23] VITALS: BP 118/66
[2018-12-23 04:00] VITALS: BP 111/78
--- NOTE | 2018-12-23 04:22 | NUR ---
NURSE NOTES: Patient is asleep lying semi-barclay's; resting comfortably. No signs of acute distress or pain noted at this time.
[2018-12-23] MEDS: Piperacillin/Tazobactam 3.375 GM in NS 110 ML IVPB SCH ×2 (06:16→14:11)
[2018-12-23] MEDS: Morphine Sulfate 2mg/ml Inj(IV/IM USE ONLY) IVP PRN ×2 (06:16→14:27)
--- NOTE | 2018-12-23 07:21 | NUR ---
HAND-OFF: Report given to SEB Merritt. Patient is awake lying semi-barclay's; resting comfortably. In stable condition.
--- NOTE | 2018-12-23 07:24 | NUR ---
NURSE NOTES: I received the patient awake and resting in bed. Patient alert and oriented x4. Bed in the lowest position and call light within reach. I will continue to monitor the patient and implement care.
[2018-12-23 08:00] VITALS: BP 132/58
[2018-12-23] MEDS: Carvedilol 12.5mg tab ORAL SCH (09:08)
[2018-12-23] MEDS: Lisinopril 10mg tab ORAL SCH (09:08)
[2018-12-23] MEDS: Eliquis 5mg tablet ORAL SCH ×2 (09:08→17:51)
[2018-12-23] MEDS: Spironolactone 25mg tab ORAL SCH (09:08)
--- NOTE | 2018-12-23 09:19 | GI Progress Note ---
Assessment/Plan Problems: (1) Diverticulitis ICD Codes: K57.92 - Diverticulitis of intestine, part unspecified, without perforation or abscess without bleeding SNOMED: 339231727 (2) Obesity ICD Codes: E66.9 - Obesity, unspecified SNOMED: 358181391, 024691354 Status: stable Status Narrative Discussed with Dr. Curiel. Assessment/Plan okay for DC per GI standpoint abx per ID Medical management for diverticulitis cardiac diet, tolerating IV hydration Pain management Zofran as needed PPI abx Patient needs follow-up colonoscopy approximately 2 months after discharge The patient was seen and examined at bedside and all new and available data was reviewed in the patients chart. I agree with the above findings, impression and plan. (Patient seen earlier today. Signature stamp does not reflect patient encounter time.). - Thony Curiel MD Subjective Subjective still has mild abdominal pain tolerating regular diet Objective Last 24 Hour Vital Signs Date Time Temp Pulse Resp B/P (MAP) Pulse Ox O2 Delivery O2 Flow Rate FiO2 12/23/18 09:08 132/58 12/23/18 09:08 71 132/58 12/23/18 09:08 100 12/23/18 08:00 98.0 71 20 132/58 (82) 96 12/23/18 04:00 71 12/23/18 04:00 97.7 65 18 111/78 (89) 96 12/23/18 00:00 98.5 61 18 118/66 (83) 97 12/23/18 00:00 64 12/22/18 21:35 78 124/62 12/22/18 21:00 Room Air 12/22/18 20:00 97.4 78 18 124/62 (82) 97 12/22/18 20:00 112 12/22/18 16:00 97.8 91 18 118/71 (87) 99 12/22/18 15:34 101 12/22/18 12:17 98.5 12/22/18 12:00 98.5 75 18 122/71 (88) 95 12/22/18 11:58 73 Intake and Output 12/22/18 12/23/18 18:59 06:59 Intake Total 1190.0 ml 350.0 ml Output Total 1000 ml Balance 190.0 ml 350.0 ml Intake Oral 1080 ml 240 ml IV Total 110.0 ml 110.0 ml Output Urine Total 1000 ml # Voids 2 2 # Bowel Movements 2 Height (Feet): 5 Height (Inches): 0.00 Weight (Pounds): 233 General Appearance: WD/WN, no apparent distress, alert, overweight Cardiovascular: normal rate Respiratory/Chest: normal breath sounds, no respiratory distress Abdominal Exam: normal bowel sounds, non tender, soft Extremities: normal range of motion, non-tender Patrick Oliveira NP Dec 23, 2018 09:19
--- NOTE | 2018-12-23 10:50 | NUR ---
CASE MANAGEMENT:REVIEW 01/01 SI: CHF. DIVERTICULITIS. AFIB W/RVR 98.0 70 18 116/56 96% ON RA IS: IV ZOSYN Q8HRS DIGOXIN PO QD LISINOPRIL PO QD ALDACTONE PO QD COREG PO Q12 ELIQUIS PO BID : TELEMETRY STATUS PLAN: STOOL FOR C-DIFF CLEARS Addendum: 12/23/18 at 1050 by Vicky Almaguer CM ENTERED IN ERROR
--- NOTE | 2018-12-23 10:50 | NUR ---
CASE MANAGEMENT:REVIEW 12/21/18 SI: CHF. DIVERTICULITIS. AFIB W/RVR T 97.7 HR 88 RR 20 B/P 137/68 SATS 95% ON RA CL 108 IS: IV ZOSYN Q8HRS DIGOXIN PO QD LISINOPRIL PO QD ALDACTONE PO QD COREG PO Q12 ELIQUIS PO BID : TELEMETRY STATUS CASE MANAGEMENT:REVIEW 12/22/18 SI: CHF. DIVERTICULITIS. AFIB W/RVR T 96.4 HR 70 RR 18 B/P 124/59 SATS 95% ON RA NO LABS TODAY IS: IV ZOSYN Q8HRS DIGOXIN PO QD LISINOPRIL PO QD ALDACTONE PO QD COREG PO Q12 ELIQUIS PO BID : TELEMETRY STATUS CASE MANAGEMENT:REVIEW 12/23/18 SI: CHF. DIVERTICULITIS. AFIB W/RVR T 98 HR 71 RR 20 B/P 132/58 SATS 98% ON RA NO LABS TODAY IS: IV ZOSYN Q8HRS DIGOXIN PO QD LISINOPRIL PO QD ALDACTONE PO QD COREG PO Q12H ELIQUIS PO BID : TELEMETRY STATUS PLAN: CLEARED BY GI CARDIAC DIET
--- NOTE | 2018-12-23 11:20 | NUR ---
*-* INSURANCE *-* REVIEWS HAVE BEEN FAXED TO: HEIKE TSANG PLEASE FAX THE REVIEW/CLINICAL FX: [phone] & BS/[facility] DEPT. SHE STATED THAT FORMERLY [facility] WILL TRACK THIS ADMISSION. [facility]; [place] [facility]- [phone] FX: [phone]...REVIEW/CLINICAL
[2018-12-23] MEDS ORDERED: CIPRO500 MG/51 PO (11:59)
[2018-12-23 12:00] VITALS: BP 120/60
[2018-12-23] MEDS ORDERED: METRONIDAZOLE500 MG ORAL ×3 (12:00→12:29)
--- NOTE | 2018-12-23 12:04 | Cardiac Electrophysiology PN ---
Assessment/Plan Assessment/Plan 1. Atrial flutter with rapid ventricular response. On Eliquis 5 mg BID. Continue rate control with Coreg 12.5 bid and digoxin 0.25 Consider TANI and flutter ablation as a curative approach 2. Severe cardiomyopathy with EF of around 30%. Non ischemic Continue Aldactone, Coreg, Lisinopril and Digoxin Could be tachymyopathy 3. Abdominal pain and diverticulitis. Further evaluation by Dr. Curiel. Currently nonsurgical. 4. Obesity. - discussed weight loss/nutrition consult 5. COPD. - stable DW Textile Broker and Dr Johnson Subjective Subjective Feeling better. DC in progress Objective Last 24 Hour Vital Signs Date Time Temp Pulse Resp B/P (MAP) Pulse Ox O2 Delivery O2 Flow Rate FiO2 12/23/18 09:08 132/58 12/23/18 09:08 71 132/58 12/23/18 09:08 100 12/23/18 09:00 Room Air 12/23/18 08:00 98.0 71 20 132/58 (82) 96 12/23/18 07:27 88 12/23/18 04:00 71 12/23/18 04:00 97.7 65 18 111/78 (89) 96 12/23/18 00:00 98.5 61 18 118/66 (83) 97 12/23/18 00:00 64 12/22/18 21:35 78 124/62 12/22/18 21:00 Room Air 12/22/18 20:00 97.4 78 18 124/62 (82) 97 12/22/18 20:00 112 12/22/18 16:00 97.8 91 18 118/71 (87) 99 12/22/18 15:34 101 12/22/18 12:17 98.5 12/22/18 12:00 98.5 75 18 122/71 (88) 95 12/22/18 11:58 73 Intake and Output 12/22/18 12/23/18 18:59 06:59 Intake Total 1190.0 ml 350.0 ml Output Total 1000 ml Balance 190.0 ml 350.0 ml Intake Oral 1080 ml 240 ml IV Total 110.0 ml 110.0 ml Output Urine Total 1000 ml # Voids 2 2 # Bowel Movements 2 Objective General Appearance: no apparent distress, alert EENT: PERRL/EOMI, normal ENT inspection, TMs normal, pharynx normal Neck: non-tender, normal alignment, supple, normal inspection, no JVD Rhythm: NSR Cardiovascular: Irregular S1 and S2 Respiratory/Chest: chest wall non-tender, lungs clear, normal breath sounds Abdomen: normal bowel sounds, non tender, soft, no organomegaly, no mass Extremities: normal range of motion, non-tender, normal inspection 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
--- NOTE | 2018-12-23 12:12 | NUR ---
DISCHARGE PLANNING: TRANSFER NOTE DC PLAN UPDATED PATIENT TO BE TRANSFERRED TO [facility] OR [facility] FOR CARDIAC PROCEDURE. PATIENT HAS CARDIOMYOPATHY AND IS A FLUTTER. [facility] MAY NOT BE ABLE TO PERFORM PROCEDURE. CALL PLACED AWAITING CALL BACK FROM PARTS DESIGNER. PATIENT PLACED ON TRANSFER LIST. F/S FACED TO [phone]. AWAITING ACCEPTING
--- NOTE | 2018-12-23 12:21 | Infectious Diseases Prog Note ---
Assessment/Plan Assessment/Plan IMPRESSION: 1. Colon diverticulitis. 2. Atrial fibrillation with rapid ventricular rate, now is rate controlled. 3. Cardiomyopathy. 4. History of COPD. 5. Morbid obesity. 6. Hypertension. RECOMMENDATION: will continue Zosyn in hospital Agree with discharge PO Cipro & Flagyl X 2 days Subjective ROS Limited/Unobtainable: Yes Constitutional: Reports: no symptoms Gastrointestinal/Abdominal: Reports: other - mild left abdominal pain Genitourinary: Reports: no symptoms Allergies: Coded Allergies: NO KNOWN ALLERGIES (Unverified Allergy, Unknown, 02/19/18) Objective Vital Signs Last 24 Hour Vital Signs Date Time Temp Pulse Resp B/P (MAP) Pulse Ox O2 Delivery O2 Flow Rate FiO2 12/23/18 09:08 132/58 12/23/18 09:08 71 132/58 12/23/18 09:08 100 12/23/18 09:00 Room Air 12/23/18 08:00 98.0 71 20 132/58 (82) 96 12/23/18 07:27 88 12/23/18 04:00 71 12/23/18 04:00 97.7 65 18 111/78 (89) 96 12/23/18 00:00 98.5 61 18 118/66 (83) 97 12/23/18 00:00 64 12/22/18 21:35 78 124/62 12/22/18 21:00 Room Air 12/22/18 20:00 97.4 78 18 124/62 (82) 97 12/22/18 20:00 112 12/22/18 16:00 97.8 91 18 118/71 (87) 99 12/22/18 15:34 101 Height (Feet): 5 Height (Inches): 0.00 Weight (Pounds): 233 General Appearance: no acute distress HEENT: mucous membranes moist Respiratory/Chest: lungs clear Cardiovascular: normal rate Abdomen: soft, non tender Extremities: no edema Neurologic/Psychiatric: alert, oriented x 3, responsive Current Medications Medications (Trade) Dose Ordered Sig/Kaleb Route PRN Reason Start Time Stop Time Status Last Admin Dose Admin Apixaban (Eliquis) 5 mg BID ORAL 12/18/18 18:00 01/17/19 17:59 12/23/18 09:08 Carvedilol (Coreg) 12.5 mg EVERY 12 HOURS ORAL 12/18/18 21:00 01/17/19 20:59 12/23/18 09:08 Digoxin (Lanoxin) 0.25 mg DAILY ORAL 12/19/18 09:00 01/18/19 08:59 12/23/18 09:08 Iopamidol (Isovue-300 100ml) 100 ml NOW PRN INJ Radiology Procedure 12/18/18 08:00 Lisinopril (Zestril) 10 mg DAILY ORAL 12/19/18 09:00 01/18/19 08:59 12/23/18 09:08 Morphine Sulfate (Morphine Sulfate) 2 mg Q4H PRN IVP Severe Pain (Pain Scale 7-10) 12/18/18 19:15 12/25/18 19:14 12/23/18 06:16 Ondansetron HCl (Zofran) 4 mg Q6H PRN IVP Nausea & Vomiting 12/18/18 14:15 01/17/19 14:14 12/19/18 21:05 Piperacillin Sod/ Tazobactam Sod 3.375 gm/Sodium Chloride 110 ml @ 27.5 mls/hr EVERY 8 HOURS IVPB 12/18/18 14:00 12/28/18 13:59 12/23/18 06:16 Spironolactone (Aldactone) 25 mg DAILY ORAL 12/19/18 09:00 01/18/19 08:59 12/23/18 09:08 Lv Martell MD Dec 23, 2018 12:21
[2018-12-23] MEDS ORDERED: LEVAQUIN750 MG ORAL (12:28)
--- NOTE | 2018-12-23 13:45 | NUR ---
DISCHARGE PLANNING: NOTE CARDIO PROCEDURE TO BE PERFORMED OUTPT.
[2018-12-23 16:00] VITALS: BP 132/68
--- NOTE | 2018-12-23 18:42 | NUR ---
NURSE NOTES: Patient discharged in stable condition. Patient provided with prescription for antibiotics. Patient educated about following-up for a colonoscopy and at [facility] with an electorphysiologist. Patient said she had a printed circuit boards contact printer that she was suppose to see the day she was admitted. She said the printed circuit boards contact printer was aware of her A-Flutter and was considering placing a pacemaker. She said her physician was planning to do a colonoscopy. Patient's IV was removed and the site did not display any signs of redness or swelling. Patient's telemetry box was removed. Patient confirmed she was in possession of all her belongings. Patient was transported off the floor in a wheelchair and her transported her home. Patient did not display any signs of distress or SOB.
--- NOTE | 2018-12-24 10:18 | Discharge Summary ---
Discharge Summary Discharge Summary _ DATE OF ADMISSION: 12/18/2018 DATE OF DISCHARGE: 12/23/2018 DISCHARGED BY: Dr Johnson REASON FOR ADMISSION: 58 years old female with past medical history of hypertension, congestive heart failure, presented with abdominal pain Pain reported left-sided, crampy in nature. Onset started earlier , prior to presentation to ED. Patient denied bloody stool. Patient reported diarrhea. Patient was taking Eliquis due to cardiac arrhythmia. Upon evaluation patient was tachycardic. Laboratory work-up revealed significant leukocytosis with WBC 20.3. Hemoglobin and hematocrit stable. Urinalysis revealed no evidence of UTI. Stable electrolytes and renal parameters. Stable LFT. Troponin negative. EKG revealed atrial flutter with rate of 117. Albumin 3.6. Lipase 105. CT of the abdomen and pelvis demonstrated acute diverticulitis , involving the descending colon. No abscess. Mild fatty liver. In emergency department patient started on IV antibiotics and was admitted for further management. CONSULTANTS: bin worker Dr. Valdez ID specialist Dr. Guillermo GI specialist Dr. Curiel pain Specialist Dr. Patterson HOSPITAL COURSE: Patient admitted to telemetry floor. Patient initially kept n.p.o. and started on IV fluid. Pain management was addressed. Patient started on antibiotic as per ID recommendation. Saddle Tree Stitcher consulted for management of atrial flutter with tachycardia Echocardiogram revealed ejection fraction of 40% and reduced wall motion. Right ventricular systolic pressure of 18. Venous duplex bilateral lower extremity revealed no evidence of acute DVT. Patient was continue on anticoagulation with Eliquis for antiembolic stroke prevention. Rate was controlled with beta-nati and digoxin. Saddle Tree Stitcher recommended to consider TANI and flutter ablation as a curative approach. Per bin worker, patient cardiomyopathy was nonischemic. Guideline recommended medical management with beta-nati, CANDY inhibitor, and diuretics: Aldactone and digoxin was continued. Supplemental oxygen provided as needed to keep pulse oximetry above 92%. Pulse oximetry was stable on room air. Stool culture was negative. Stool for C. difficile was negative. While in the hospital patient was on IV Zosyn for management of acute diverticulitis. Infectious disease specialist recommended to continue ciprofloxacin and Flagyl for 2 additional days upon discharge. Leukocytosis resolved, no fevers. Supportive care provided. Antiemetic provided as needed. GI prophylaxis with PPI provided. Weight loss was discussed with patient. Nutritional consult provided. Pain management was addressed as per pain specialist recommendation. GI specialist cleared for discharge. Patient will require colonoscopy approximately 2 months after discharge. Patient was stable for discharge home. FINAL DIAGNOSES: Acute diverticulitis Atrial flutter with rapid ventricular response Severe cardiomyopathy with ejection fraction 40%, nonischemic Morbid obesity Hypertension COPD DISCHARGE MEDICATIONS: See Medication Reconciliation list. DISCHARGE INSTRUCTIONS: Patient was discharged home . Follow up with primary care provider in one week. I have been assigned to dictate discharge summary for this account. I was not involved in the patient's management. Joanne Flynn NP Dec 24, 2018 10:18
--- NOTE | 2018-12-24 11:06 | Diagnostic Imaging Report ---
APPROVED REPORT CPT Code: 75518 Present Symptoms Comments: BILATERAL LEGS PAIN. BILATERAL: Imaging reveals a patent deep venous system bilaterally. There is no evidence of thrombus within the femoral, popliteal or tibial segments. The greater saphenous veins are also within normal limits. Doppler indicates normal spontaneous flow within these segments.
--- NOTE | 2018-12-24 13:57 | NUR ---
*-* INSURANCE *-* DISCHARGE SUMMARY HAVE BEEN FAXED TO: HEIKE TSANG PLEASE FAX THE REVIEW/CLINICAL FX: [phone] & BS/[facility] DEPT. SHE STATED THAT FORMERLY [facility] WILL TRACK THIS ADMISSION. [facility]; [place] [facility]- [phone] FX: [phone]...REVIEW/CLINICAL
== END 2018-12-23 18:45 | disposition home or self-care (01) | DRG 244 ==
LOC: EMR 07:45 → CANBEDREQ 09:54 → 2E 10:40 → EDBEDREQ 11:58
DX: K57.32 Diverticulitis of large intestine without perforation or abscess without bleeding (principal); I42.9 Cardiomyopathy, unspecified; I11.0 Hypertensive heart disease with heart failure; I50.9 Heart failure, unspecified; E66.01 Morbid (severe) obesity due to excess calories; I48.2 Chronic atrial fibrillation; Z68.41 Body mass index [BMI] 40.0-44.9, adult; I48.92 Unspecified atrial flutter; J44.9 Chronic obstructive pulmonary disease, unspecified; Z87.891 Personal history of nicotine dependence
CPT/HCPCS: 36415; 74177; 80048; 80053; 81003; 83690; 84484; 85007; 85025; 85610; 85730; 87045; 87324; 93005; 93306; 93970; 96365; 96375; 99285; J2405